=== PATIENT | female | born 1955 | race Caucasian/White ===

== ENCOUNTER → 2016-07-31 | Day surgery (SDC) | payer OTHER ==
[2016-07-17 11:17] VITALS: Ht 160 cm; Wt 63.6 kg
[~2016-07-31] VITALS: Ht 160 cm; Wt 63.6 kg
[~2016-07-31] MED LIST: BIOTCAP2 PO; CALC1CHW PO; CETI10TA84 PO; CHOL1000 PO; CLX40 PO; CYAN10004 SL; FLUT0.0529 NAE; LIDOCAINE HCL 2% 2 ML VIAL (20MG/ML) ONE; MIDAZOLAM HCL 1 MG/ML 2ML VIAL ONE; MULTTAB58 PO; PRMVC TOP; PROPOFOL IV EMULSION 10 MG/ML 20 ML VIAL IV ONE; RANI150T3 PO; SODIUM CHLORIDE 0.9% 500ML 500 ML IV ONE; TRMO115 TOP
--- NOTE | 2016-07-31 12:45 | Endo History and Physical ---
History & Physical Date of Service: Jul 31, 2016. Chief Complaint: screening Referring Physician: Dr. Lui Flower History of Present Illness 60 yo CF who presents for screening colonoscopy Past Surgical History Hx Cardiac Surgery: Yes (HEART CATH, NO STENTS) Hx Internal Defibrillator: No Hx Pacemaker: No Hx Abdominal Surgery: Yes (GASTRIC BYPASS) Hx of Implantable Prosthesis: No Hx Post-Op Nausea and Vomiting: Yes (S/P GASTRIC BYPASS) Hx Cancer Surgery: No Hx Thoracic Surgery: No Hx Orthopedic: Yes (LT RCR) Hx Urinary Tract Surgery: Yes (RT URETER REPLACEMENT) Family History None Social History Smoking Status: Former Smoker Hx Substance Use: No Hx Alcohol Use: Yes (OCCASIONAL) Allergies Coded Allergies: Gadolinium Derivatives (Verified Allergy, Severe, ANAPHYLAXIS, 07/17/16) IN IV DYE? Iodine (Verified Allergy, Severe, ANAPHYLAXIS, 07/17/16) Amoxicillin (Verified Allergy, Intermediate, SEVERE HIVES, 07/17/16) Sulfamethoxazole w/Trimethoprim (Verified Allergy, Unknown, RASH, 07/17/16) Current Medications Reported Home Medications Medications Dose Route/Sig Max Daily Dose Days Date Category Triamcinolone Acetonide (Triamcinolone Acet) 45 Appln/15 Gm Oint 1 Appln TOP BID PRN 07/17/16 Reported Premarin (Estrogens, Conjugated) 14 Appln/30 Gm Cr 1 Appl TOP 2XWK 07/17/16 Reported Vitamin B-12 1000 Mcg (Cyanocobalamin) 1,000 Mcg Tab 1,000 Mcg SL BID 07/17/16 Reported Biotin 5000 (Biotin) 5 Mg Cap 1 Tab PO QAM 07/17/16 Reported Zyrtec (Cetirizine HCl) 10 Mg Tab 10 Mg PO DAILY PRN 07/17/16 Reported Calcium Citrate Chewy Bit 500-500 mg-Unit (Calcium Citrate-Vitamin D) 1 Chw Chw 1 Tab PO BID 07/17/16 Reported Vitamin D3 (Cholecalciferol) 1,000 Unit Tab 1 Tab PO QAM 07/17/16 Reported Multivitamin (Multiple Vitamin) 1 Tab Tab 1 Tab PO BID 07/17/16 Reported Citalopram Hydrobromide (Citalopram) 40 Mg Tab 1 Tab PO QAM 07/17/16 Reported Zantac (Ranitidine HCl) 150 Mg Tab 1 Tab PO BID 04/13/15 Reported Flonase (Fluticasone Propionate (Nasal)) 50 Mcg/Act Spr 2 Sprays LIDYA PRN 06/25/14 Reported Vital Signs Weight (Kilograms): 63.64 Height (Feet): 5 Height (Inches): 3 Date Time Temp Pulse Resp B/P Pulse Ox O2 Delivery O2 Flow Rate FiO2 07/31/16 12:06 36.5 57 20 144/67 96 Room Air Physical Exam General Appearance: WD/WN, no apparent distress Respiratory/Chest: Auscultation: breath sounds normal Cardiovascular: Heart Auscultation: RRR Abdomen: Bowel Sounds: normal Inspection & Palpation: soft, non-distended, no tenderness, guarding & rebound Assessment and Plan Assessment: 60 yo CF who presents for screening colonoscopy Plan: Proceed with colonoscopy.
--- NOTE | 2016-07-31 13:14 | Discharge Instructions ---
Endoscopy Patient Instructions Date / Procedure(s) Performed Jul 31, 2016. Colonoscopy Allergy Information Coded Allergies: Gadolinium Derivatives (Verified Allergy, Severe, ANAPHYLAXIS, 07/17/16) IN IV DYE? Iodine (Verified Allergy, Severe, ANAPHYLAXIS, 07/17/16) Amoxicillin (Verified Allergy, Intermediate, SEVERE HIVES, 07/17/16) Sulfamethoxazole w/Trimethoprim (Verified Allergy, Unknown, RASH, 07/17/16) Discharge Date / Findings Jul 31, 2016. Colon polyp Internal hemorrhoids Medication Instructions OK to resume all medications today as prescribed. Reported Home Medications Medications Dose Route/Sig Max Daily Dose Days Date Category Triamcinolone Acetonide (Triamcinolone Acet) 45 Appln/15 Gm Oint 1 Appln TOP BID PRN 07/17/16 Reported Premarin (Estrogens, Conjugated) 14 Appln/30 Gm Cr 1 Appl TOP 2XWK 07/17/16 Reported Vitamin B-12 1000 Mcg (Cyanocobalamin) 1,000 Mcg Tab 1,000 Mcg SL BID 07/17/16 Reported Biotin 5000 (Biotin) 5 Mg Cap 1 Tab PO QAM 07/17/16 Reported Zyrtec (Cetirizine HCl) 10 Mg Tab 10 Mg PO DAILY PRN 07/17/16 Reported Calcium Citrate Chewy Bit 500-500 mg-Unit (Calcium Citrate-Vitamin D) 1 Chw Chw 1 Tab PO BID 07/17/16 Reported Vitamin D3 (Cholecalciferol) 1,000 Unit Tab 1 Tab PO QAM 07/17/16 Reported Multivitamin (Multiple Vitamin) 1 Tab Tab 1 Tab PO BID 07/17/16 Reported Citalopram Hydrobromide (Citalopram) 40 Mg Tab 1 Tab PO QAM 07/17/16 Reported Zantac (Ranitidine HCl) 150 Mg Tab 1 Tab PO BID 04/13/15 Reported Flonase (Fluticasone Propionate (Nasal)) 50 Mcg/Act Spr 2 Sprays LIDYA PRN 06/25/14 Reported Provider Instructions Activity Restrictions - No exercising or heavy lifting for 24 hours. - Do not drink alcohol the day of the procedure. - Do not drive a car or operate machinery until the day after the procedure. - Do not make any important decisions or sign important papers in 24 hours after the procedure. Following Day: - Return to full activity which may include returning to work/school. Diet Start your diet with liquids and light foods (jello, soup, juice, toast). Then eat your usual diet if not nauseated. Treatment For Common After Affects For mild abdominal pain, bloating, or excessive gas: - Rest - Eat lightly - Lie on right side Follow-Up Information Follow-up with Dr. Lui Flower as scheduled Anesthesia Information What You Should Know You have had a procedure that required some medicine to reduce anxiety and discomfort. This treatment is called moderate sedation. After receiving the treatment, you may be sleepy, but you will be able to breathe on your own. The effects of the treatment may last for several hours. Follow these instructions along with Activity/Diet recommendations noted above: * Do NOT do anything where dizziness or clumsiness would be dangerous. * Rest quietly at home today, then you can be up and about tomorrow. * Have a responsible person stay with you the rest of today. * You may have had an I.V. today. If so, you may take the dressing off later today. Recommendations Call your doctor if: * Trouble breathing * Continuous vomiting for more than 24 hours * Temperature above 101 degrees * Severe abdominal pain or bloating * Pain not relieved by pain medicine ordered * There is increased drainage or redness from any incision * A large amount of rectal bleeding greater than 2-3 tablespoons. (If you had a polyp/s removed or have hemorrhoids, a small amount of blood - from the rectum is to be expected.) * You have any unanswered questions or concerns. IN THE EVENT OF A SERIOUS EMERGENCY, GO TO THE NEAREST EMERGENCY ROOM Your discharge instructions were prepared by provider Stalin Bernard. Patient Instructions Signature Page Gavi Colbert Patient (or Guardian) Signature/Date: I have read and understand the instructions given to me by my caregivers. Caregiver/RN/Doctor Signature/Date: The above-named patient and/or guardian has received patient instructions on this date. + Original Patient Signature Page (only) stays with chart. Please make copy for patient.
--- NOTE | 2016-07-31 13:21 | GI REPORT ---
Procedure Date: 07/31/2016 12:25 PM Procedure: Colonoscopy Indications: High risk colon cancer surveillance: Personal history of colonic polyps Medicines: Monitored Anesthesia Care Complications: No immediate complications. Estimated Blood Loss: Estimated blood loss: none. Procedure: Pre-Anesthesia Assessment: - Prior to the procedure, a History and Physical was performed, and patient medications and allergies were reviewed. The patient's tolerance of previous anesthesia was also reviewed. The risks and benefits of the procedure and the sedation options and risks were discussed with the patient. All questions were answered, and informed consent was obtained. Prior Anticoagulants: The patient has taken no previous anticoagulant or antiplatelet agents. ASA Grade Assessment: II - A patient with mild systemic disease. After reviewing the risks and benefits, the patient was deemed in satisfactory condition to undergo the procedure. After I obtained informed consent, the scope was passed under direct vision. Throughout the procedure, the patient's blood pressure, pulse, and oxygen saturations were monitored continuously. The scope was introduced through the anus and advanced to the terminal ileum. The colonoscopy was performed without difficulty. The patient tolerated the procedure well. The quality of the bowel preparation was good. The terminal ileum, ileocecal valve, appendiceal orifice, and rectum were photographed. Findings: A 3 mm polyp was found in the descending colon. The polyp was sessile. The polyp was removed with a cold biopsy forceps. Resection and retrieval were complete. Non-bleeding internal hemorrhoids were found during retroflexion. The hemorrhoids were small. Impression: - One 3 mm polyp in the descending colon, removed with a cold biopsy forceps. Resected and retrieved. - Non-bleeding internal hemorrhoids. Recommendation: - Resume previous diet. - Continue present medications. - Repeat colonoscopy for surveillance based on pathology results. - Return to primary care physician as previously scheduled. Stalin Bernard DO 07/31/2016 1:20:41 PM This report has been signed electronically. Note Initiated On: 07/31/2016 12:25 PM I attest to the content of the Intraoperative Record and orders documented therein, exceptions below
[2016-07-31 13:39] VITALS: BP 108/63; PULSE 56; O2SAT 99
--- NOTE | 2016-07-31 13:44 | Anesthesiology Progress Note ---
Anesthesia Post Op Note Date & Time Jul 31, 2016 at 13:44 Vital Signs Pain Intensity: 0 Vital Signs Past 12 Hours Date Time Temp Pulse Resp B/P Pulse Ox O2 Delivery O2 Flow Rate FiO2 07/31/16 13:39 56 16 108/63 99 Room Air 07/31/16 13:24 63 16 100/58 96 Room Air 07/31/16 13:09 68 16 98/53 96 Room Air 07/31/16 12:06 36.5 57 20 144/67 96 Room Air Notes Mental Status: alert / awake / arousable, participated in evaluation Pt Amnestic to Procedure: Yes Nausea / Vomiting: adequately controlled Pain: adequately controlled Airway Patency, RR, SpO2: stable & adequate BP & HR: stable & adequate Hydration State: stable & adequate Anesthetic Complications: no major complications apparent
== END | disposition home or self-care (01) ==
LOC: C.GI 11:14
PROVIDERS: ATTEND Internal Medicine
DX: Z12.11 Encounter for screening for malignant neoplasm of colon (principal); Z86.010 Personal history of colon polyps; D12.4 Benign neoplasm of descending colon; K64.8 Other hemorrhoids; Z98.890 Other specified postprocedural states; Z87.891 Personal history of nicotine dependence; Z91.041 Radiographic dye allergy status; Z88.1 Allergy status to other antibiotic agents; Z88.2 Allergy status to sulfonamides

== ENCOUNTER → 2016-11-20 | Outpatient (CLI) | payer OTHER ==
[~2016-11-20] MED LIST changes: -LIDOCAINE HCL 2% 2 ML VIAL (20MG/ML) ONE; -MIDAZOLAM HCL 1 MG/ML 2ML VIAL ONE; -PROPOFOL IV EMULSION 10 MG/ML 20 ML VIAL IV ONE; -SODIUM CHLORIDE 0.9% 500ML 500 ML IV ONE
[2016-11-20 12:23] LABS: MEAN CELL VOLUME 94.9 fL (80-100); MEAN CORPUSCULAR HEMOGLOBIN 30.6 pg (25-34); MEAN CORPUSCULAR HGB CONC 32.2 g/dl (32-36); MEAN PLATELET VOLUME 11.6 fL (7.4-10.4); PLATELET COUNT 173 K/uL (130-400); RED BLOOD COUNT 4.74 M/uL (4.2-5.4); WHITE BLOOD COUNT 5.15 K/uL (4.8-10.8)
[2016-11-20 13:01] LABS: URINE PROTIEN/CREAT RATIO 0.3 (0-0.2); URINE TOTAL PROTEIN 26.2 mg/dl (0-11.9)
[2016-11-20 13:16] LABS: URINE APPEARANCE CLEAR (CLEAR); URINE BILIRUBIN NEG (NEG); URINE COLOR YELLOW; URINE NITRITE NEG (NEG); URINE SPECIFIC GRAVITY 1.018 (1.000-1.030); UROBILINOGEN NEG (NEG)
[2016-11-20 13:26] LABS: MANUAL MICROSCOPIC REQUIRED? NO; REVIEW REQ? YES
[2016-11-20 13:29] LABS: ALT/SGPT 41 U/L (12-78); BLOOD UREA NITROGEN 20 mg/dl (7-18); BUN/CREATININE RATIO 15.5 (10-20); CALCIUM 9.2 mg/dl (8.5-10.1); CARBON DIOXIDE 25 mmol/L (21-32); CHLORIDE 114 mmol/L (98-107); GLUCOSE 85 mg/dl (70-99); POTASSIUM 4.6 mmol/L (3.5-5.1); SODIUM 143 mmol/L (136-145)
[2016-11-20 13:32] LABS: ALB/GLOB RATIO 1.1 (0.9-2); ALKALINE PHOSPHATASE 73 U/L (45-117); AST/SGOT 30 U/L (15-37)
== END | disposition home or self-care (01) ==
LOC: C.LABPVFM 08:04
PROVIDERS: ATTEND Internal Medicine Nephrology
DX: N18.3 Chronic kidney disease, stage 3 (moderate) (principal); E55.9 Vitamin D deficiency, unspecified; N30.00 Acute cystitis without hematuria

== ENCOUNTER → 2016-12-09 | Outpatient (CLI) | payer OTHER ==
[2016-12-09 12:48] LABS: URINE APPEARANCE CLOUDY (CLEAR); URINE BILIRUBIN NEG (NEG); URINE COLOR YELLOW; URINE EPITHELIAL CELL AUTO 0-5 /lpf (0-5); URINE NITRITE NEG (NEG); URINE SPECIFIC GRAVITY 1.015 (1.000-1.030); UROBILINOGEN NEG (NEG)
[2016-12-09 13:07] LABS: MANUAL MICROSCOPIC REQUIRED? NO; REVIEW REQ? YES
== END | disposition home or self-care (01) ==
LOC: C.LABPVFM 08:06
PROVIDERS: ATTEND Physician Assistant
DX: R30.0 Dysuria (principal)

== ENCOUNTER 2017-05-12 09:57 | Inpatient (IN) | payer OTHER ==
[~2017-05-12] VITALS: Ht 160 cm; Wt 70.1 kg
--- NOTE | 2017-05-12 10:31 | EMERGENCY ROOM VISIT NOTE ---
History Report prepared by Harish: Stanton Maldonado Under the Supervision of: Dr. Nico Marino M.D. First contact with patient: 10:19 Chief Complaint: ABDOMINAL PAIN Stated Complaint: AB PAIN Nursing Triage Summary: Nausea and abdominal pain radiating to the left side x1 month, worsening. Hx gastric bypass 2 years ago. History of Present Illness The patient is a 61 year old female who presents to the Emergency Room with complaints of constant left-side abdominal pain for one month STRAWHAT SIZER. She notes the pain initially began in her epigastric region and migrated to her left side. She notes the pain has been worsening over time. She reports that movement and deep breaths worsen the pain. She currently rates her pain an 8/10 in severity. She notes nausea. She denies any fevers, vomiting, and diarrhea. She has a history of gastric bypass and right ureter replacement. She denies any history of diverticulitis. Source of History: patient Onset: one month STRAWHAT SIZER Position: abdomen Symptom Intensity: 8/10 Timing: constant Modifying Factors (Worsening): breathing, movement Associated Symptoms: + nausea, No fevers, No vomiting, No diarrhea Note: She notes left side abdominal pain Review of Systems See HPI for pertinent positives & negatives. A total of 10 systems reviewed and were otherwise negative. Past Medical & Surgical Medical Problems: (1) Emphysema, unspecified (2) HTN (hypertension) (3) Kidney disease (4) Kidney stone (5) PNA (pneumonia) (6) right ureter replacement Surgical Problems: (1) H/O gastric bypass Family History FH: HTN (hypertension) FH: cancer FH: diabetes mellitus FH: gallbladder disease FH: kidney disease FH: lung disease FH: seizures Heart disease Social History Smoking Status: Never Smoker Marital Status: Housing Status: lives with significant other Occupation Status: employed Current/Historical Medications Scheduled Biotin (Biotin 5000), 1 TAB PO QAM Calcium Citrate-Vitamin D (Calcium Citrate Chewy Bit 500-500 mg-Unit), 1 TAB PO BID Cholecalciferol (Vitamin D3), 1 TAB PO QAM Citalopram (Citalopram Hydrobromide), 1 TAB PO QAM Cyanocobalamin (Vitamin B-12 1000 Mcg), 1,000 MCG SL BID Estradiol Vaginal (Yuvafem), 1 TAB PV 2XWK Multiple Vitamin (Multivitamin), 1 TAB PO BID Ranitidine Hcl (Zantac), 1 TAB PO BID Scheduled PRN Cetirizine (Zyrtec), 10 MG PO DAILY PRN for ALLERGIES Fluticasone Propionate (Nasal) (Flonase Allergy Relief), 2 SPRAY LIDYA DAILY PRN for CONGESTION Allergies Coded Allergies: Gadolinium Derivatives (Verified Allergy, Severe, ANAPHYLAXIS, 05/12/17) IN IV DYE? Iodine (Verified Allergy, Severe, ANAPHYLAXIS, 05/12/17) Amoxicillin (Verified Allergy, Intermediate, SEVERE HIVES, 05/12/17) Sulfamethoxazole w/Trimethoprim (Verified Allergy, Unknown, RASH, 05/12/17 ) Physical Exam Vital Signs Date Time Temp Pulse Resp B/P (MAP) Pulse Ox O2 Delivery O2 Flow Rate FiO2 05/12/17 14:28 61 18 135/62 98 Room Air 05/12/17 12:54 54 18 137/79 98 Room Air 05/12/17 10:08 36.8 64 18 131/81 99 Room Air Physical Exam GENERAL: Patient is in no acute distress. HEENT: No acute trauma, normocephalic atraumatic, mucous membranes moist, no nasal congestion, no scleral icterus. NECK: No stridor, no adenopathy, no meningismus, trachea is midline. LUNGS: Clear to auscultation bilaterally, no wheeze, no rhonchi, breath sounds equal. HEART: Without murmurs gallops or rubs, regular rate and rhythm. ABDOMEN: Soft, moderately tender along entire left side, bowel sounds positive, no hernias, no peritonitis. BACK: No flank discomfort with percussion. EXTREMITIES: No cyanosis or edema, full range of motion of all the joints without pain or difficulty, no signs for acute trauma. NEUROLOGIC: Oriented x 3, no acute motor or sensory deficits, no focal weakness. SKIN: No rash, no jaundice, no diaphoresis. Medical Decision & Procedures ER Provider Diagnostic Interpretation: Radiology results as stated below per my review and radiologist interpretation: SINGLE VIEW CHEST CLINICAL HISTORY: Generalized abdominal pain. FINDINGS: An AP, portable, upright chest radiograph is compared to study dated 04/13/2015. The examination is degraded by portable technique, apical lordotic positioning, and patient rotation. The cardiomediastinal silhouette is unremarkable. Scattered calcified granulomas are again noted. The lungs and pleural spaces are otherwise clear. No pneumothorax is seen. The skeletal structures are osteopenic. The bony thorax is grossly intact. IMPRESSION: No active disease in the chest. Electronically signed by: Nico Miller M.D. 05/12/2017 10:46 AM Dictated Date/Time: 05/12/2017 10:[address] SCAN OF THE ABDOMEN AND PELVIS WITHOUT IV CONTRAST CLINICAL HISTORY: Generalized abdominal pain. COMPARISON STUDY: Abdominal CT dated 04/13/2015. TECHNIQUE: CT scan of the abdomen and pelvis is performed from the lung bases to the proximal femora. Images are reviewed in the axial, sagittal, and coronal planes. IV contrast was not administered for this examination due to a reported history of contrast allergy. Oral contrast was utilized. A dose lowering technique was utilized adhering to the principles of ALARA. CT DOSE: 509.96 mGy.cm FINDINGS: Lung bases: The heart is normal in size and without pericardial effusion. There are coronary artery calcifications. There is a large calcified granuloma at the right lung base. No airspace consolidation or pleural effusion is seen. Liver: The unenhanced liver is normal in size, contour, and attenuation. There is no intrahepatic biliary ductal dilatation. Gallbladder: Unremarkable. Spleen: Normal in size and attenuation. There are scattered calcified granulomas. Pancreas: The unenhanced pancreas is grossly unremarkable. Adrenal glands: Unremarkable. Kidneys: The unenhanced kidneys demonstrate cortical atrophy. There is mild to moderate right hydroureteronephrosis. The right ureter inserts on the dome of the bladder. There is urothelial thickening seen in the right renal pelvis involving the right ureter. There is mild right-sided perinephric stranding. There is minimal fullness of left renal collecting system without hydronephrosis. Nonobstructing calculi are present in the lower pole of the left kidney. No right renal calculi are identified. There is no evidence of contour deforming renal mass lesion. Abdominal vasculature: The abdominal aorta is normal in course and caliber noting moderate atherosclerotic calcification. Stomach and bowel: There is a tiny hiatal hernia. There are postoperative changes consistent with a history of Facundo-en-Y gastric bypass surgery. No bowel obstruction is seen. The appendix is well-visualized and normal. Peritoneum: There is no intraperitoneal free air or abdominal ascites. Lymphadenopathy: None. Pelvic viscera: The bladder and uterus are normal in appearance. A 2.7 cm cystic structure seen in the left adnexa, likely related to the left ovary. This is modestly increased in size from 2015. Skeletal structures: The skeletal structures are osteopenic. Mild lumbosacral spondylosis is observed. Advanced sclerotic change is noted at the pubic symphysis. No lytic or blastic lesions are seen. IMPRESSION: 1. There is mild to moderate right hydroureteronephrosis. The ureter is dilated to the bladder and may insert ectopically at the bladder dome. Hydronephrosis has increased from prior studies. 2. There is urothelial thickening within the right renal collecting system as well as involving the right ureter. There is also mild associated right-sided perinephric stranding. Correlation with clinical findings and urinalysis will be required. 3. Nonobstructing left renal calculi. 4. There is a 2.7 cm simple cystic focus in the left adnexa, likely related to the left ovary. This is of low suspicion but has slightly increased in size from 2015. Consider follow-up with a nonemergent pelvic ultrasound. 5. Findings are consistent with a Facundo-en-Y gastric bypass procedure. No bowel obstruction is seen. 6. Additional findings as above. Electronically signed by: Nico Miller M.D. 05/12/2017 1:04 PM Dictated Date/Time: 05/12/2017 12:50 PM Laboratory Results 05/12/17 10:35 Red Blood Count 4.40, Mean Corpuscular Volume 93.0, Mean Corpuscular Hemoglobin 32.3, Mean Corpuscular Hemoglobin Concent 34.7, Mean Platelet Volume 10.8, Neutrophils (%) (Auto) 59.3, Lymphocytes (%) (Auto) 24.3, Monocytes (%) (Auto) 8.9, Eosinophils (%) (Auto) 6.4, Basophils (%) (Auto) 0.9, Neutrophils # (Auto) 3.31, Lymphocytes # (Auto) 1.36, Monocytes # (Auto) 0.50, Eosinophils # (Auto) 0.36, Basophils # (Auto) 0.05 05/12/17 10:35 Test 05/12/17 10:35 05/12/17 11:05 White Blood Count 5.59 K/uL (4.8-10.8) Red Blood Count 4.40 M/uL (4.2-5.4) Hemoglobin 14.2 g/dL (12.0-16.0) Hematocrit 40.9 % (37-47) Mean Corpuscular Volume 93.0 fL (80-100) Mean Corpuscular Hemoglobin 32.3 pg (25-34) Mean Corpuscular Hemoglobin Concent 34.7 g/dl (32-36) Platelet Count 171 K/uL (130-400) Mean Platelet Volume 10.8 fL (7.4-10.4) Neutrophils (%) (Auto) 59.3 % Lymphocytes (%) (Auto) 24.3 % Monocytes (%) (Auto) 8.9 % Eosinophils (%) (Auto) 6.4 % Basophils (%) (Auto) 0.9 % Neutrophils # (Auto) 3.31 K/uL (1.4-6.5) Lymphocytes # (Auto) 1.36 K/uL (1.2-3.4) Monocytes # (Auto) 0.50 K/uL (0.11-0.59) Eosinophils # (Auto) 0.36 K/uL (0-0.5) Basophils # (Auto) 0.05 K/uL (0-0.2) RDW Standard Deviation 44.0 fL (36.4-46.3) RDW Coefficient of Variation 13.0 % (11.5-14.5) Immature Granulocyte % (Auto) 0.2 % Immature Granulocyte # (Auto) 0.01 K/uL (0.00-0.02) Prothrombin Time 10.0 SECONDS (9.0-12.0) Prothromb Time International Ratio 1.0 (0.9-1.1) Activated Partial Thromboplast Time 26.8 SECONDS (21.0-31.0) Partial Thromboplastin Ratio 1.0 Anion Gap 9.0 mmol/L (3-11) Est Creatinine Clear Calc Drug Dose 44.8 ml/min Estimated GFR () 53.5 Estimated GFR (Non- 46.2 BUN/Creatinine Ratio 18.3 (10-20) Calcium Level 8.6 mg/dl (8.5-10.1) Total Bilirubin 0.3 mg/dl (0.2-1) Aspartate Amino Transf (AST/SGOT) 27 U/L (15-37) Alanine Aminotransferase (ALT/SGPT) 31 U/L (12-78) Alkaline Phosphatase 92 U/L (45-117) Troponin I < 0.015 ng/ml (0-0.045) Total Protein 7.4 gm/dl (6.4-8.2) Albumin 3.7 gm/dl (3.4-5.0) Globulin 3.6 gm/dl (2.5-4.0) Albumin/Globulin Ratio 1.0 (0.9-2) Lipase 666 U/L (73-393) Urine Color YELLOW Urine Appearance CLEAR (CLEAR) Urine pH 6.5 (4.5-7.5) Urine Specific [place] 1.015 (1.000-1.030) Urine Protein NEG (NEG) Urine Glucose (UA) NEG (NEG) Urine Ketones NEG (NEG) Urine Occult Blood NEG (NEG) Urine Nitrite NEG (NEG) Urine Bilirubin NEG (NEG) Urine Urobilinogen NEG (NEG) Urine Leukocyte Esterase NEG (NEG) Laboratory results reviewed by me. ECG Indication: abdominal pain Rate (beats per minute): 54 Rhythm: sinus bradycardia Findings: no acute ischemic change, no ectopy ED Course 1020: The patient was evaluated in room C12B. A complete history and physical exam was performed. 1430: I reassessed the patient at this time. She is still having pain. The patient will be further evaluated. 1443: I spoke with Dr. Vamshi Roman, hospitalist. We discussed the patients case. The patient will be evaluated by the [facility] for further management. Medical Decision The patient is a 61 year old female who presents to the ED with complaints of left-sided abdominal pain. Differential diagnoses considered include diverticulitis, pyelonephritis, hydronephrosis, splenic lesion or bleeding, pna , pancreatitis, hernia, and musculoskeletal pain. There is no leukocytosis or concerning anemia. No significant electrolyte abnormality or kidney failure. No hepatitis. Lipase is elevated consistent with pancreatitis. Urinalysis does not show infection. Chest film does not show pneumonia or free air. EKG shows a sinus bradycardia, no acute ischemia. Abdominal and pelvis CT does not show inflammation of the pancreas. There was no bowel obstruction. The patient did have some inflammation around the area of the right ureter and correlation for infection with a urinalysis was recommended. The patient did not want anything for pain. She did not want anything for nausea. She is uncomfortable but again, does not want medicated. With her pain increasing for the last month. With her history of abdominal surgery and the findings of pancreatitis. I think a hospital stay is warranted. It appears the pancreatitis is causing her discomfort. The changes in the area of the right ureter may be chronic from her previous right ureteral work-she is not having pain in this area. Medication Reconcilliation Current Medication List: was personally reviewed by me Blood Pressure Screening Patient's blood pressure: Elevated blood pressure Blood pressure disposition: Elevated BP felt to be situational Consults Time Called: 1413 Consulting Physician: Dr. Vamshi Roman, hospitalist Returned Call: [address] Vamshi Roman, hospitalist. We discussed the patients case. The patient will be evaluated by the [facility] for further management. Impression Primary Impression: Pancreatitis Additional Impression: LUQ abdominal pain Scribe Attestation The scribe's documentation has been prepared under my direction and personally reviewed by me in its entirety. I confirm that the note above accurately reflects all work, treatment, procedures, and medical decision making performed by me. Departure Information Dispostion Being Evaluated By Hospitalist Referrals Kim Nguyen PA-C (PCP) Patient Instructions My [facility] Problem Qualifiers Primary Impression: Pancreatitis Chronicity: acute
--- NOTE | 2017-05-12 10:47 | DIAGNOSTIC IMAGING REPORT ---
SINGLE VIEW CHEST CLINICAL HISTORY: Generalized abdominal pain. FINDINGS: An AP, portable, upright chest radiograph is compared to study dated 04/13/2015. The examination is degraded by portable technique, apical lordotic positioning, and patient rotation. The cardiomediastinal silhouette is unremarkable. Scattered calcified granulomas are again noted. The lungs and pleural spaces are otherwise clear. No pneumothorax is seen. The skeletal structures are osteopenic. The bony thorax is grossly intact. IMPRESSION: No active disease in the chest. Electronically signed by: Nico Miller M.D. 05/12/2017 10:46 AM Dictated Date/Time: 05/12/2017 10:45 AM
[2017-05-12 10:49] LABS: BASO % 0.9 %; BASO ABS # 0.05 K/uL (0-0.2); EOS % 6.4 %; EOS ABS # 0.36 K/uL (0-0.5); HEMATOCRIT 40.9 % (37-47); HEMOGLOBIN 14.2 g/dL (12.0-16.0); IG# 0.01 K/uL (0.00-0.02); LYMPH % 24.3 %; LYMPH ABS # 1.36 K/uL (1.2-3.4); MEAN CORPUSCULAR HEMOGLOBIN 32.3 pg (25-34); MEAN CORPUSCULAR HGB CONC 34.7 g/dl (32-36); MEAN PLATELET VOLUME 10.8 fL (7.4-10.4); MONO % 8.9 %; NEUT % 59.3 %; NEUT ABS # 3.31 K/uL (1.4-6.5); PLATELET COUNT 171 K/uL (130-400); WHITE BLOOD COUNT 5.59 K/uL (4.8-10.8)
[2017-05-12 10:59] LABS: PTT PATIENT 26.8 SECONDS (21.0-31.0)
[2017-05-12 11:16] LABS: ALBUMIN 3.7 gm/dl (3.4-5.0); ALT/SGPT 31 U/L (12-78); BLOOD UREA NITROGEN 23 mg/dl (7-18); CALCIUM 8.6 mg/dl (8.5-10.1); CARBON DIOXIDE 22 mmol/L (21-32); CREATININE 1.27 mg/dl (0.60-1.20); GLUCOSE 80 mg/dl (70-99); LIPASE 666 U/L (73-393); POTASSIUM 3.9 mmol/L (3.5-5.1); SODIUM 140 mmol/L (136-145)
[2017-05-12] MEDS ORDERED: FLUT0.15 NAE (11:19)
[2017-05-12] MEDS ORDERED: ESTR10TA3 PV (11:19)
[2017-05-12 11:21] LABS: ALKALINE PHOSPHATASE 92 U/L (45-117); AST/SGOT 27 U/L (15-37); TOTAL PROTEIN 7.4 gm/dl (6.4-8.2)
--- NOTE | 2017-05-12 13:05 | DIAGNOSTIC IMAGING REPORT ---
CT SCAN OF THE ABDOMEN AND PELVIS WITHOUT IV CONTRAST CLINICAL HISTORY: Generalized abdominal pain. COMPARISON STUDY: Abdominal CT dated 04/13/2015. TECHNIQUE: CT scan of the abdomen and pelvis is performed from the lung bases to the proximal femora. Images are reviewed in the axial, sagittal, and coronal planes. IV contrast was not administered for this examination due to a reported history of contrast allergy. Oral contrast was utilized. A dose lowering technique was utilized adhering to the principles of ALARA. CT DOSE: 509.96 mGy.cm FINDINGS: Lung bases: The heart is normal in size and without pericardial effusion. There are coronary artery calcifications. There is a large calcified granuloma at the right lung base. No airspace consolidation or pleural effusion is seen. Liver: The unenhanced liver is normal in size, contour, and attenuation. There is no intrahepatic biliary ductal dilatation. Gallbladder: Unremarkable. Spleen: Normal in size and attenuation. There are scattered calcified granulomas. Pancreas: The unenhanced pancreas is grossly unremarkable. Adrenal glands: Unremarkable. Kidneys: The unenhanced kidneys demonstrate cortical atrophy. There is mild to moderate right hydroureteronephrosis. The right ureter inserts on the dome of the bladder. There is urothelial thickening seen in the right renal pelvis involving the right ureter. There is mild right-sided perinephric stranding. There is minimal fullness of left renal collecting system without hydronephrosis. Nonobstructing calculi are present in the lower pole of the left kidney. No right renal calculi are identified. There is no evidence of contour deforming renal mass lesion. Abdominal vasculature: The abdominal aorta is normal in course and caliber noting moderate atherosclerotic calcification. Stomach and bowel: There is a tiny hiatal hernia. There are postoperative changes consistent with a history of Facundo-en-Y gastric bypass surgery. No bowel obstruction is seen. The appendix is well-visualized and normal. Peritoneum: There is no intraperitoneal free air or abdominal ascites. Lymphadenopathy: None. Pelvic viscera: The bladder and uterus are normal in appearance. A 2.7 cm cystic structure seen in the left adnexa, likely related to the left ovary. This is modestly increased in size from 2015. Skeletal structures: The skeletal structures are osteopenic. Mild lumbosacral spondylosis is observed. Advanced sclerotic change is noted at the pubic symphysis. No lytic or blastic lesions are seen. IMPRESSION: 1. There is mild to moderate right hydroureteronephrosis. The ureter is dilated to the bladder and may insert ectopically at the bladder dome. Hydronephrosis has increased from prior studies. 2. There is urothelial thickening within the right renal collecting system as well as involving the right ureter. There is also mild associated right-sided perinephric stranding. Correlation with clinical findings and urinalysis will be required. 3. Nonobstructing left renal calculi. 4. There is a 2.7 cm simple cystic focus in the left adnexa, likely related to the left ovary. This is of low suspicion but has slightly increased in size from 2015. Consider follow-up with a nonemergent pelvic ultrasound. 5. Findings are consistent with a Facundo-en-Y gastric bypass procedure. No bowel obstruction is seen. 6. Additional findings as above. Electronically signed by: Nico Miller M.D. 05/12/2017 1:04 PM Dictated Date/Time: 05/12/2017 12:50 PM
[2017-05-12] MEDS ORDERED: ALUMINUM/MAGNESIUM/SIMETH (MAALOX MAX) 30 ML UDC PO PRN (15:15)
[2017-05-12] MEDS ORDERED: HYDROmorphone INJ 1 MG/ML SYR IV PRN (15:15)
[2017-05-12] MEDS ORDERED: ONDANSETRON INJ 2 MG/ML 2 ML VIAL IV PRN (15:15)
[2017-05-12] MEDS ORDERED: MAGNESIUM HYDROXIDE SUSP 30 ML UDC PO PRN (15:15)
[2017-05-12] MEDS ORDERED: POLYETHYLENE (MIRALAX) 17 GM PACK PO PRN (15:15)
[2017-05-12] MEDS ORDERED: ACETAMINOPHEN 325 MG TAB PO PRN (15:15)
--- NOTE | 2017-05-12 15:43 | History and Physical ---
History & Physical Date & Time of Service: May 12, 2017 at 15:23 Chief Complaint: Ab Pain Primary Care Physician: Anali Mercado CRNP History of Present Illness Source: patient, family, clinic records, hospital records Patient is a pleasant 61 y/o female, with PMHx of obesity s/p gastric bypass in 2014, R ureteral obstruction s/p ureteral reconstruction w/ ileum in 2009, anxiety/depression, CKD stage III, HTN, and GERD, who presented to the ED with progressive epigastric discomfort x1 month. According to the patient, over the last 1 month she has noticed constant epigastric pain that radiates to LUQ and back. Pain increasing w/ deep breathing and sneezing. She denies any association with eating/drinking- she notes at times she has episodes of nausea but it has been ongoing since gastric bypass. In ED, workup relatively unremarkable besides lipase of 666. Patient admits to a h/o PUD- she takes Zantac daily. She denies any recurrent symptoms similar to past presentation. She drinks 3-4 cups of coffee per day. She denies h/o smoking. She denies NSAID use. She denies BRBPR or melena. She denies excessive alcohol use and only drinks on rare occasions. She has not recently followed w/ GI, but has had an EGD in the past- GI w/ C. Patient was recently treated w/ Cipro for UTI- completed entire course. Patient denies any fever, chills, sweats, lightheadedness, dizziness, vision changes, CP, palpitations, edema, SOB, wheezing, cough, vomiting, diarrhea, urinary symptoms, melena, numbness/tingling , weakness, muscle/joint pain, anxiety/depression, active bleeding, or new skin discoloration/changes. Past Medical/Surgical History Medical Problems: obesity s/p gastric bypass in 2014 R ureteral obstruction s/p ureteral reconstruction w/ ileum in 2009 anxiety/depression CKD stage III HTN GERD Status: Resolved Family History FH: HTN (hypertension) FH: cancer FH: diabetes mellitus FH: gallbladder disease FH: kidney disease FH: lung disease FH: seizures Heart disease Social History Smoking Status: Never Smoker Alcohol Use: occasionally Marital Status: Housing status: lives with family Occupational Status: employed Multi-Drug Resistant Organisms History of MDRO: No Allergies Coded Allergies: Gadolinium Derivatives (Verified Allergy, Severe, ANAPHYLAXIS, 05/12/17) IN IV DYE? Iodine (Verified Allergy, Severe, ANAPHYLAXIS, 05/12/17) Amoxicillin (Verified Allergy, Intermediate, SEVERE HIVES, 05/12/17) Sulfamethoxazole w/Trimethoprim (Verified Allergy, Unknown, RASH, 05/12/17 ) Home Medications Scheduled Biotin (Biotin 5000), 1 TAB PO QAM Calcium Citrate-Vitamin D (Calcium Citrate Chewy Bit 500-500 mg-Unit), 1 TAB PO BID Cholecalciferol (Vitamin D3), 1 TAB PO QAM Citalopram (Citalopram Hydrobromide), 1 TAB PO QAM Cyanocobalamin (Vitamin B-12 1000 Mcg), 1,000 [address] BID Estradiol Vaginal (Yuvafem), 1 TAB PV 2XWK Multiple Vitamin (Multivitamin), 1 TAB PO BID Ranitidine Hcl (Zantac), 1 TAB PO BID Scheduled PRN Cetirizine (Zyrtec), 10 MG PO DAILY PRN for ALLERGIES Fluticasone Propionate (Nasal) (Flonase Allergy Relief), 2 SPRAY LIDYA DAILY PRN for CONGESTION Physical Exam Vital Signs Date Time Temp Pulse Resp B/P (MAP) Pulse Ox O2 Delivery O2 Flow Rate FiO2 05/12/17 14:28 61 18 135/62 98 Room Air 05/12/17 12:54 54 18 137/79 98 Room Air 05/12/17 10:08 36.8 64 18 131/81 99 Room Air General Appearance: WD/WN, no apparent distress Head: normocephalic, atraumatic Eyes: normal inspection, PERRL ENT: hearing grossly normal Neck: supple Respiratory/Chest: lungs clear, no respiratory distress, no accessory muscle use Cardiovascular: regular rate, rhythm Abdomen/GI: normal bowel sounds, soft, + tenderness (epigastric/LUQ region ), + guarding Back: normal inspection Extremities/Musculoskelatal: no calf tenderness, no pedal edema Neurologic/Psych: alert, normal mood/affect, oriented x 3 Skin: normal color, warm/dry, no rash Diagnostics Laboratory Results Results Past 24 Hours Test 05/12/17 10:35 05/12/17 11:05 Range/Units White Blood Count 5.59 4.8-10.8 K/uL Red Blood Count 4.40 4.2-5.4 M/uL Hemoglobin 14.2 12.0-16.0 g/dL Hematocrit 40.9 37-47 % Mean Corpuscular Volume 93.0 80-100 fL Mean Corpuscular Hemoglobin 32.3 25-34 pg Mean Corpuscular Hemoglobin Concent 34.7 32-36 g/dl Platelet Count 171 130-400 K/uL Mean Platelet Volume 10.8 7.4-10.4 fL Neutrophils (%) (Auto) 59.3 % Lymphocytes (%) (Auto) 24.3 % Monocytes (%) (Auto) 8.9 % Eosinophils (%) (Auto) 6.4 % Basophils (%) (Auto) 0.9 % Neutrophils # (Auto) 3.31 1.4-6.5 K/uL Lymphocytes # (Auto) 1.36 1.2-3.4 K/uL Monocytes # (Auto) 0.50 0.11-0.59 K/uL Eosinophils # (Auto) 0.36 0-0.5 K/uL Basophils # (Auto) 0.05 0-0.2 K/uL RDW Standard Deviation 44.0 36.4-46.3 fL RDW Coefficient of Variation 13.0 11.5-14.5 % Immature Granulocyte % (Auto) 0.2 % Immature Granulocyte # (Auto) 0.01 0.00-0.02 K/uL Prothrombin Time 10.0 9.0-12.0 SECONDS Prothromb Time International Ratio 1.0 0.9-1.1 Activated Partial Thromboplast Time 26.8 21.0-31.0 SECONDS Partial Thromboplastin Ratio 1.0 Sodium Level 140 136-145 mmol/L Potassium Level 3.9 3.5-5.1 mmol/L Chloride Level 110 98-107 mmol/L Carbon Dioxide Level 22 21-32 mmol/L Anion Gap 9.0 3-11 mmol/L Blood Urea Nitrogen 23 7-18 mg/dl Creatinine 1.27 0.60-1.20 mg/dl Est Creatinine Clear Calc Drug Dose 44.8 ml/min Estimated GFR () 53.5 Estimated GFR (Non- 46.2 BUN/Creatinine Ratio 18.3 10-20 Random Glucose 80 70-99 mg/dl Calcium Level 8.6 8.5-10.1 mg/dl Total Bilirubin 0.3 0.2-1 mg/dl Aspartate Amino Transf (AST/SGOT) 27 15-37 U/L Alanine Aminotransferase (ALT/SGPT) 31 12-78 U/L Alkaline Phosphatase 92 45-117 U/L Troponin I < 0.015 0-0.045 ng/ml Total Protein 7.4 6.4-8.2 gm/dl Albumin 3.7 3.4-5.0 gm/dl Globulin 3.6 2.5-4.0 gm/dl Albumin/Globulin Ratio 1.0 0.9-2 Lipase 666 73-393 U/L Urine Color YELLOW Urine Appearance CLEAR CLEAR Urine pH 6.5 4.5-7.5 Urine Specific [place] 1.015 1.000-1.030 Urine Protein NEG NEG Urine Glucose (UA) NEG NEG Urine Ketones NEG NEG Urine Occult Blood NEG NEG Urine Nitrite NEG NEG Urine Bilirubin NEG NEG Urine Urobilinogen NEG NEG Urine Leukocyte Esterase NEG NEG Diagnostic Radiology SINGLE VIEW CHEST CLINICAL HISTORY: Generalized abdominal pain. FINDINGS: An AP, portable, upright chest radiograph is compared to study dated 04/13/2015. The examination is degraded by portable technique, apical lordotic positioning, and patient rotation. The cardiomediastinal silhouette is unremarkable. Scattered calcified granulomas are again noted. The lungs and pleural spaces are otherwise clear. No pneumothorax is seen. The skeletal structures are osteopenic. The bony thorax is grossly intact. IMPRESSION: No active disease in the chest. Electronically signed by: Nico Miller M.D. 05/12/2017 10:46 AM Dictated Date/Time: 05/12/2017 10:45 AM The status of this report is Signed. Draft = Not yet reviewed or approved by Radiologist. Signed = Reviewed and approved by Radiologist. CT SCAN OF THE ABDOMEN AND PELVIS WITHOUT IV CONTRAST CLINICAL HISTORY: Generalized abdominal pain. COMPARISON STUDY: Abdominal CT dated 04/13/2015. TECHNIQUE: CT scan of the abdomen and pelvis is performed from the lung bases to the proximal femora. Images are reviewed in the axial, sagittal, and coronal planes. IV contrast was not administered for this examination due to a reported history of contrast allergy. Oral contrast was utilized. A dose lowering technique was utilized adhering to the principles of ALARA. CT DOSE: 509.96 mGy.cm FINDINGS: Lung bases: The heart is normal in size and without pericardial effusion. There are coronary artery calcifications. There is a large calcified granuloma at the right lung base. No airspace consolidation or pleural effusion is seen. Liver: The unenhanced liver is normal in size, contour, and attenuation. There is no intrahepatic biliary ductal dilatation. Gallbladder: Unremarkable. Spleen: Normal in size and attenuation. There are scattered calcified granulomas. Pancreas: The unenhanced pancreas is grossly unremarkable. Adrenal glands: Unremarkable. Kidneys: The unenhanced kidneys demonstrate cortical atrophy. There is mild to moderate right hydroureteronephrosis. The right ureter inserts on the dome of the bladder. There is urothelial thickening seen in the right renal pelvis involving the right ureter. There is mild right-sided perinephric stranding. There is minimal fullness of left renal collecting system without hydronephrosis. Nonobstructing calculi are present in the lower pole of the left kidney. No right renal calculi are identified. There is no evidence of contour deforming renal mass lesion. Abdominal vasculature: The abdominal aorta is normal in course and caliber noting moderate atherosclerotic calcification. Stomach and bowel: There is a tiny hiatal hernia. There are postoperative changes consistent with a history of Facundo-en-Y gastric bypass surgery. No bowel obstruction is seen. The appendix is well-visualized and normal. Peritoneum: There is no intraperitoneal free air or abdominal ascites. Lymphadenopathy: None. Pelvic viscera: The bladder and uterus are normal in appearance. A 2.7 cm cystic structure seen in the left adnexa, likely related to the left ovary. This is modestly increased in size from 2015. Skeletal structures: The skeletal structures are osteopenic. Mild lumbosacral spondylosis is observed. Advanced sclerotic change is noted at the pubic symphysis. No lytic or blastic lesions are seen. IMPRESSION: 1. There is mild to moderate right hydroureteronephrosis. The ureter is dilated to the bladder and may insert ectopically at the bladder dome. Hydronephrosis has increased from prior studies. 2. There is urothelial thickening within the right renal collecting system as well as involving the right ureter. There is also mild associated right-sided perinephric stranding. Correlation with clinical findings and urinalysis will be required. 3. Nonobstructing left renal calculi. 4. There is a 2.7 cm simple cystic focus in the left adnexa, likely related to the left ovary. This is of low suspicion but has slightly increased in size from 2015. Consider follow-up with a nonemergent pelvic ultrasound. 5. Findings are consistent with a Facundo-en-Y gastric bypass procedure. No bowel obstruction is seen. 6. Additional findings as above. Electronically signed by: Nico Miller M.D. 05/12/2017 1:04 PM Dictated Date/Time: 05/12/2017 12:50 PM The status of this report is Signed. Draft = Not yet reviewed or approved by Radiologist. Signed = Reviewed and approved by Radiologist. EKG LUPE DUBOIS ID:[id number] 12-MAY-2017 10:33:25 [facility] Sinus bradycardia Otherwise normal ECG When compared with ECG of 25-JUN-2014 14:54, Vent. rate has decreased BY 29 BPM QT has shortened Confirmed by ELISA PETERSON ([id number]) on 05/12/2017 2:27:08 PM 25mm/s 10mm/mV 150Hz 8.0 SP2 12SL 241 YOKO: 10 Referred by: Confirmed By: ELISA PETERSON Vent. 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 Epigastric pain and elevated lipase, likely secondary to pancreatitis vs GERD: - Admit to med/surg - NPO - IV NSS @ 125 ml/hr - IV Dilaudid PRN for pain management - IV Protonix 40 mg BID; hold Zantac 150 mg BID - Lipase 666- follow lipase daily - Check lipid panel/triglycerides - Abdominal CT- unremarkable gallbladder/pancreas, no bowel obstruction - UA negative Left adnexal 2.7 cm simple cyst: Non-emergent pelvic US recommended R ureteral obstruction s/p ureteral reconstruction w/ ileum in 2009, CKD stage III w/ baseline overnight stocker 1.2-1.5- follows w/ Dr. Castelan- STABLE: - CT of abdomen- mild to moderate R hydroureteronephrosis, R urothelial thickening- negative UA, nonobstructing L renal calculi Anxiety/depression: Citalopram 40 mg daily GERD, GI prophylaxis: Protonix IV BID DVT prophylaxis; TEDs/SCDs, ambulation Code Status: LEVEL I, FULL Dispo: From home, lives w/ - no discharge needs anticipated I personally interviewed and examined the patient. I agree with history of present illness and physical exam mentioned above, I also performed my own history taking and examination. Past medical history and review of system has been obtained by myself I reviewed all pertinent labs and studies Reviewed current medications I discussed and formulated of the assessment and plan mentioned above. Please refer to the Summary mentioned above by Miss De La Cruz. 61 years old lady presented with epigastric abdominal pain, lipase was elevated Assessment Abdominal pain with elevated lipase possible pancreatitis No history of excessive alcohol Take No history of triglyceridemia No imaging suggestive of cholestatic pancreatitis Plan Recheck lipids in a.m. Supportive care IV fluid hydration Bowel rest General Appearance: not in acute distress Eyes: normal Sclerae, extraocular muscle intact ENT: hearing grossly normal Neck: supple Respiratory/Chest: normal air entry bilateral ,no respiratory distress, no accessory muscle use Cardiovascular: regular rate, rhythm, + systolic murmur Abdomen: epigastric tenderness but no guarding, soft, no masses Extremities: no edema Neurologic/Psychiatric: Awake alert oriented times place and person moves all extremities sensation intact cranial nerves II-12 appear to be intact Skin: normal color, warm/dry, no rash Guero Roman MD, [facility] Level of Care Med/Surg Resuscitation Status FULL RESUSCITATION VTE Prophylaxis VTE Risk Assessment Done? Y/N: Yes Risk Level: Moderate Given or contraindicated: T.E.D. Stockings, SCD's
[2017-05-12 16:09] VITALS: BP 128/78; PULSE 58; TEMP 36.6; O2SAT 97; Ht 160 cm; Wt 70.1 kg
--- NOTE | 2017-05-12 16:23 | NUR ---
pt arrived to room 458 at 1600 via wheelchair from ER. Alert, oriented x4. able to make needs known. reports pain 3/10 in abdomen. reports 3/10 is an acceptable level of pain. oriented pt to hospital environment, NPO status, call gonzalez and TV use. verbalized understanding. primary nurse made aware.
[2017-05-12] MEDS ORDERED: PANTOprazole INJ 40 MG in SYRINGE 0 ML IV STA (16:27)
[2017-05-12] MEDS: SODIUM CHLORIDE 0.9% 1000ML 1,000 ML IV SCH (17:35)
[2017-05-12 23:50] VITALS: BP 112/68; PULSE 58; TEMP 36.8; O2SAT 98
[2017-05-13] MEDS: SODIUM CHLORIDE 0.9% 1000ML 1,000 ML IV SCH ×2 (00:45→09:19)
[2017-05-13 07:20] LABS: HEMOGLOBIN 13.8 g/dL (12.0-16.0); MEAN CELL VOLUME 93.9 fL (80-100); MEAN CORPUSCULAR HEMOGLOBIN 32.4 pg (25-34); MEAN CORPUSCULAR HGB CONC 34.5 g/dl (32-36); MEAN PLATELET VOLUME 10.6 fL (7.4-10.4); PLATELET COUNT 151 K/uL (130-400); RED CELL DISTRIBUTION WIDTH SD 44.7 fL (36.4-46.3); WHITE BLOOD COUNT 4.13 K/uL (4.8-10.8)
[2017-05-13] MEDS: CITALOPRAM 40 MG TAB PO SCH (07:26)
[2017-05-13 07:49] LABS: CALCIUM 8.9 mg/dl (8.5-10.1); CREATININE 1.04 mg/dl (0.60-1.20); POTASSIUM 4.3 mmol/L (3.5-5.1)
[2017-05-13 08:23] VITALS: BP 120/76; PULSE 53; TEMP 36.7; O2SAT 97
[2017-05-13] MEDS: LACTATED RINGER'S 1000ML 1,000 ML IV SCH ×3 (11:45→22:42)
--- NOTE | 2017-05-13 12:04 | Gastrointestinal Consultation ---
Gastrointestinal Consultation Date of Consultation: May 13, 2017 Attending Physician: Flores Colvin Consulting Physician: Lonnie Rolle Reason for Consultation: Epigastric abd pain, hx of gastric bypass History of Present Illness Patient is a 61 year old female w PMHx of obesity s/p gastric bypass in 02/[address] Subramanian in [facility] [place], R ureteral obstruction s/p ureteral construction w ileum in 2009, depression, CKD III, HTN, GERD who presented to ED w worsening of epigastric abd pain for over a month now. She described the pain as stabbing mostly sometimes radiating to LUQ and back. Pain worse w taking deep breath or sneezing. Denies any association when eating/drinking, no change in appetite or weight loss. She had hx of marginal ulcer in 2014 after her bypass treated w PPI , Carfate, Cytotec. Last EGD eval 04/2015 showed no more ulcer occurrence. Denies any NSAIDs intake, ETOH, is on Zantac at home. Labs here showed no leukocytosis, H/H stable, no coagulopathy. CMP normal. Lipase was elevated to 666, down now to 289. She had normal CXR, non contrasted CT abd/pelvis showed normal gallbladder and pancreas. There is a mild to moderate R hydroureteronephrosis which has increased from prior studies. There is a lso a R urothelial thickening within R renal collecting system. Past Medical/Surgical History Medical Problems: (1) Complications of gastric bypass surgery Status: Acute (2) Dehydration Status: Acute (3) Epigastric abdominal pain Status: Acute (4) LUQ abdominal pain Status: Acute (5) Pancreatitis Status: Acute (6) Renal insufficiency Status: Acute Past Medical History: See above. Past Surgical History: See above. Family History FH: HTN (hypertension) FH: cancer FH: diabetes mellitus FH: gallbladder disease FH: kidney disease FH: lung disease FH: seizures Heart disease Social History Smoking Status: Never Smoker Alcohol Use: none Drug Use: none Marital Status: Housing Status: lives with significant other Occupation Status: employed Allergies Coded Allergies: Gadolinium Derivatives (Verified Allergy, Severe, ANAPHYLAXIS, 05/12/17) IN IV DYE? Iodine (Verified Allergy, Severe, ANAPHYLAXIS, 05/12/17) Amoxicillin (Verified Allergy, Intermediate, SEVERE HIVES, 05/12/17) Sulfamethoxazole w/Trimethoprim (Verified Allergy, Unknown, RASH, 05/12/17 ) Current Medications Home Meds and Scripts Medications Dose Route/Sig Max Daily Dose Days Date Category Yuvafem (Estradiol Vaginal) 10 Mcg Tab 1 Tab PV 2XWK 05/12/17 Reported Flonase Allergy Relief (Fluticasone Propionate (Nasal)) 50 Mcg/Act Spr 2 [place] LIDYA DAILY PRN 05/12/17 Reported Vitamin B-12 1000 Mcg (Cyanocobalamin) 1,000 Mcg Tab 1,000 Mcg SL BID 07/17/16 Reported Biotin 5000 (Biotin) 5 Mg Cap 1 Tab PO QAM 07/17/16 Reported Zyrtec (Cetirizine HCl) 10 Mg Tab 10 Mg PO DAILY PRN 07/17/16 Reported Calcium Citrate Chewy Bit 500-500 mg-Unit (Calcium Citrate-Vitamin D) 1 Chw Chw 1 Tab PO BID 07/17/16 Reported Vitamin D3 (Cholecalciferol) 1,000 Unit Tab 1 Tab PO QAM 07/17/16 Reported Multivitamin (Multiple Vitamin) 1 Tab Tab 1 Tab PO BID 07/17/16 Reported Citalopram Hydrobromide (Citalopram) 40 Mg Tab 1 Tab PO QAM 07/17/16 Reported Zantac (Ranitidine HCl) 150 Mg Tab 1 Tab PO BID 04/13/15 Reported Review of Systems Constitutional: No fever, No chills Respiratory: No cough, No shortness of breath Cardiac: No chest pain Abdomen: + pain, No nausea, No vomiting, No diarrhea, No constipation, No GI bleeding Skin: No rash, No itch, No jaundice Physical Exam Date Time Temp Pulse Resp B/P (MAP) Pulse Ox O2 Delivery O2 Flow Rate FiO2 05/13/17 08:23 36.7 53 16 120/76 (91) 97 Room Air 05/13/17 08:00 Room Air 05/13/17 00:00 Room Air 05/12/17 23:50 36.8 58 18 112/68 (83) 98 Room Air 05/12/17 20:00 Room Air 05/12/17 17:00 Room Air 05/12/17 16:09 36.6 58 18 128/78 97 Room Air 05/12/17 15:52 59 18 143/73 96 Room Air 05/12/17 14:28 61 18 135/62 98 Room Air 05/12/17 12:54 54 18 137/79 98 Room Air General Appearance: WD/WN, no apparent distress Eyes: normal inspection, PERRL, EOMI Neck: supple, no JVD, trachea midline Respiratory/Chest: normal breath sounds, no respiratory distress, no accessory muscle use Cardiovascular: regular rate, rhythm, no gallop, no murmur Abdomen: normal bowel sounds, soft, + tenderness (epigastric ) Extremities: normal inspection, no pedal edema, no calf tenderness Neurologic/Psych: alert, normal mood/affect, oriented x 3 Skin: normal color, no jaundice, no rash Laboratory Results Last 24 Hours Test 05/13/17 06:59 White Blood Count 4.13 K/uL Red Blood Count 4.26 M/uL Hemoglobin 13.8 g/dL Hematocrit 40.0 % Mean Corpuscular Volume 93.9 fL Mean Corpuscular Hemoglobin 32.4 pg Mean Corpuscular Hemoglobin Concent 34.5 g/dl RDW Standard Deviation 44.7 fL RDW Coefficient of Variation 13.0 % Platelet Count 151 K/uL Mean Platelet Volume 10.6 fL Sodium Level 142 mmol/L Potassium Level 4.3 mmol/L Chloride Level 112 mmol/L Carbon Dioxide Level 24 mmol/L Anion Gap 6.0 mmol/L Blood Urea Nitrogen 19 mg/dl Creatinine 1.04 mg/dl Est Creatinine Clear Calc Drug Dose 54.7 ml/min Estimated GFR () 68.1 Estimated GFR (Non- 58.8 BUN/Creatinine Ratio 18.3 Random Glucose 84 mg/dl Calcium Level 8.9 mg/dl Triglycerides Level 154 mg/dl Cholesterol Level 177 mg/dl HDL Cholesterol 40 mg/dl LDL Cholesterol, Calculated 106 mg/dl VLDL Cholesterol, Calculated 31 mg/dl Cholesterol/HDL Ratio 4.4 Lipase 289 U/L Impression Patient is a 61 year old female with worsening epigastric pain over 1 month. No n/v, weight or appetite loss. Hx of gastric bypass in 2014 w marginal ulcer development treated successfully w PPI, Carafate, Cytotec. No NSAID, ETOH, tobacco per pt. She has also elevated lipase on admission, still has gallbladder , non contrasted CT abd/pelvis w/o signs of gallstones or pancreatitis. Plan - Keep NPO for EGD eval to r/o PUD this afternoon by Dr. Rolle - PERRY u/s to r/o gallstones/sludge - LR @ 200ml/hr - PPI IV BID ATTESTATION: I have performed a history and physical examination of this patient and reviewed the electronic record. Specifically, on physical examination there is minimal epigastric tenderness. I have discussed the case with NILS Luke. The above note reflects my findings, conclusions, and recommendations. Lonnie Rolle MD
--- NOTE | 2017-05-13 13:00 | NUR ---
A: Patient off floor by wheelchair at this time to have gallbladder US completed and then for EGD. All jewelry locked in medicine cabinet. Patient chose to take denture cup with her and remove partial prior to procedure. All other belongings with at bedside.
--- NOTE | 2017-05-13 13:14 | Hospitalist Progress Note ---
Hospitalist Progress Note Date of Service May 13, 2017. Subjective Pt evaluation today including: conversation w/ patient, conversation w/ family Pt admitted with epigastric abd pain x 1 month, worsening in severity the last 3 -4 days. It sometimes radiates around the left rib cage, and progressed to the point where it would no longer wane, and is constant. Also started hurting with any movement at all and with deep breathing. Denies CP or SOB. Cannot relate it to eating, but worsens with lying flat. Constitutional: No fever Respiratory: No shortness of breath Cardiovascular: No chest pain Abdomen: + pain, + nausea, No vomiting, No diarrhea, No constipation, No GI bleeding All Other Systems: Reviewed and Negative Objective Vital Signs Date Time Temp Pulse Resp B/P (MAP) Pulse Ox O2 Delivery O2 Flow Rate FiO2 05/13/17 08:23 36.7 53 16 120/76 (91) 97 Room Air 05/13/17 08:00 Room Air 05/13/17 00:00 Room Air 05/12/17 23:50 36.8 58 18 112/68 (83) 98 Room Air 05/12/17 20:00 Room Air 05/12/17 17:00 Room Air 05/12/17 16:09 36.6 58 18 128/78 97 Room Air 05/12/17 15:52 59 18 143/73 96 Room Air 05/12/17 14:28 61 18 135/62 98 Room Air Physical Exam General Appearance: WD/WN, no apparent distress Eyes: normal inspection, sclerae normal ENT: hearing grossly normal Neck: trachea midline Respiratory/Chest: lungs clear, normal breath sounds, no respiratory distress, no accessory muscle use Cardiovascular: regular rate, rhythm, no edema, no gallop, no JVD, no murmur Abdomen: normal bowel sounds, soft, no organomegaly, + tenderness (in epigastric region without guarding or rebound) Extremities: non-tender, normal inspection, no pedal edema, no calf tenderness Neurologic/Psychiatric: alert, normal mood/affect, oriented x 3 Skin: normal color, warm/dry, no rash Laboratory Results Last 24 Hours Test 05/13/17 06:59 White Blood Count 4.13 K/uL Red Blood Count 4.26 M/uL Hemoglobin 13.8 g/dL Hematocrit 40.0 % Mean Corpuscular Volume 93.9 fL Mean Corpuscular Hemoglobin 32.4 pg Mean Corpuscular Hemoglobin Concent 34.5 g/dl RDW Standard Deviation 44.7 fL RDW Coefficient of Variation 13.0 % Platelet Count 151 K/uL Mean Platelet Volume 10.6 fL Sodium Level 142 mmol/L Potassium Level 4.3 mmol/L Chloride Level 112 mmol/L Carbon Dioxide Level 24 mmol/L Anion Gap 6.0 mmol/L Blood Urea Nitrogen 19 mg/dl Creatinine 1.04 mg/dl Est Creatinine Clear Calc Drug Dose 54.7 ml/min Estimated GFR () 68.1 Estimated GFR (Non- 58.8 BUN/Creatinine Ratio 18.3 Random Glucose 84 mg/dl Calcium Level 8.9 mg/dl Triglycerides Level 154 mg/dl Cholesterol Level 177 mg/dl HDL Cholesterol 40 mg/dl LDL Cholesterol, Calculated 106 mg/dl VLDL Cholesterol, Calculated 31 mg/dl Cholesterol/HDL Ratio 4.4 Lipase 289 U/L Assessment and Plan Patient is a 61 y/o female, with PMHx of obesity s/p gastric bypass in 2014, marginal ulcer/PUD 1 month after surgery, R ureteral obstruction s/p ureteral reconstruction w/ ileum in 2009, anxiety/depression, CKD stage III, HTN, and GERD, who presented to the ED with progressive epigastric discomfort x1 month. Epigastric pain and elevated lipase-could be PUD at anastomosis site vs gastritis vs acute pancreatitis. Possible but not as likely is symptomatic cholelithiasis given rapid weight loss since gastric bypass. Lipase decreased to normal this AM, no leukocytosis, afebrile, LFTs normal, Hgb normal. Triglycerides normal, Abdominal CT- unremarkable gallbladder/pancreas, no bowel obstruction, chronic findings in rt ureter except slightly worse rt hydro, UA normal. Not hypoxic, no tachycardia, ECG fine, and with direct TTP of epigastric region on exam, not likely to be cardiac or pulmonary in nature. 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 Castelan- STABLE: - CT of abdomen- mild to moderate R hydroureteronephrosis, R urothelial thickening- negative UA, nonobstructing L renal calculi Anxiety/depression: stable -continue Citalopram 40 mg daily GERD, GI prophylaxis: Protonix IV BID DVT prophylaxis; TEDs/SCDs, ambulation Code Status: LEVEL I, FULL Dispo: From home, lives w/ - no discharge needs anticipated
--- NOTE | 2017-05-13 13:31 | DIAGNOSTIC IMAGING REPORT ---
ABDOMINAL ULTRASOUND, RIGHT UPPER QUADRANT HISTORY: Right upper quadrant abdominal pain. r/o gallstones / sludge. COMPARISON: Abdomen and pelvis CT 05/12/2017. FINDINGS: Pancreas: The pancreatic tail is obscured by overlying bowel gas. The remaining portions of the pancreas are within normal limits. Liver: No hepatic masses. The liver is normal in size. Gallbladder: No gallbladder wall thickening. No gallstones. CBD: 4 mm. Right kidney: Mild right hydronephrosis, unchanged. IMPRESSION: 1. Normal gallbladder. No gallstones. 2. Mild right hydronephrosis, unchanged. Electronically signed by: Steffen Frederick M.D. 05/13/2017 1:29 PM Dictated Date/Time: 05/13/2017 1:26 PM
[2017-05-13] MEDS ORDERED: LIDOCAINE HCL 2% 2 ML VIAL (20MG/ML) ONE (15:26)
[2017-05-13] MEDS ORDERED: PROPOFOL IV EMULSION 10 MG/ML 20 ML VIAL IV ONE (15:26)
--- NOTE | 2017-05-13 15:26 | GI REPORT ---
Procedure Date: 05/13/2017 3:10 PM Procedure: Upper GI endoscopy Indications: Epigastric abdominal pain, Assessment following Facundo-en-Y gastrojejunostomy Medicines: Monitored Anesthesia Care Complications: No immediate complications. Estimated blood loss: None. Estimated Blood Loss: Estimated blood loss: none. Procedure: Pre-Anesthesia Assessment: - Prior to the procedure, a History and Physical was performed, and patient medications, allergies and sensitivities were reviewed. The patient's tolerance of previous anesthesia was reviewed. - ASA Grade Assessment: II - A patient with mild systemic disease. After obtaining informed consent, the endoscope was passed under direct vision. Throughout the procedure, the patient's blood pressure, pulse, and oxygen saturations were monitored continuously. The scope was introduced through the mouth, and advanced to the efferent jejunal loop. The upper GI endoscopy was accomplished with ease. The patient tolerated the procedure well. Findings: The upper third of the esophagus, middle third of the esophagus and lower third of the esophagus were normal. The Z-line was regular and was found 38 cm from the incisors. A small sliding hiatal hernia was present. Normal mucosa was found in the entire examined stomach. Biopsies were taken with a cold forceps for Helicobacter pylori testing. Evidence of a gastric bypass was found. A gastric pouch with a large size was found. The staple line appeared intact. The gastrojejunal anastomosis was characterized by a deep ulceration on the jejunal side and an intact staple line. This was traversed. The examined jejunum was normal. Impression: - Normal upper third of esophagus, middle third of esophagus and lower third of esophagus. - Z-line regular, 38 cm from the incisors. - Small sliding hiatal hernia. - Normal mucosa was found in the entire stomach. Biopsied. - Gastric bypass with a large-sized pouch and intact staple line. Gastrojejunal anastomosis characterized by ulceration and an intact staple line. - Normal examined jejunum. Recommendation: - Await pathology results. - Use misoprostol 100 micrograms PO QID. - Use a proton pump inhibitor PO BID. - Repeat upper endoscopy in 2 months to check healing. - [facility] care. Lonnie Rolle M.D. Lonnie Rolle MD 05/13/2017 3:26:06 PM This report has been signed electronically. Note Initiated On: 05/13/2017 3:10 PM I attest to the content of the Intraoperative Record and orders documented therein, exceptions below
--- NOTE | 2017-05-13 15:31 | Anesthesiology Progress Note ---
Anesthesia Post Op Note Date & Time May 13, 2017 at 15:30 Vital Signs Pain Intensity: 3.0 Vital Signs Past 12 Hours Date Time Temp Pulse Resp B/P (MAP) Pulse Ox O2 Delivery O2 Flow Rate FiO2 05/13/17 13:40 36.8 18 142/72 (95) 96 Room Air 05/13/17 08:23 36.7 53 16 120/76 (91) 97 Room Air 05/13/17 08:00 Room Air Notes Mental Status: alert / awake / arousable, participated in evaluation Pt Amnestic to Procedure: Yes Nausea / Vomiting: adequately controlled Pain: adequately controlled Airway Patency, RR, SpO2: stable & adequate BP & HR: stable & adequate Hydration State: stable & adequate Anesthetic Complications: no major complications apparent
[2017-05-13 16:00] VITALS: O2SAT 96
[2017-05-13 16:14] VITALS: BP 139/85; PULSE 53; TEMP 36.6; O2SAT 96
--- NOTE | 2017-05-13 16:21 | NUR ---
Pt screened for MUST. Please refer to linked assessment Addendum: 05/13/17 at [address] Amended: Links added.
[2017-05-13] MEDS: MISOPROSTOL 100 MCG TAB PO SCH ×2 (16:49→19:56)
[2017-05-13] MEDS: PANTOprazole INJ 40 MG in SYRINGE 0 ML IV SCH (19:56)
[2017-05-13 23:33] VITALS: BP 135/82; PULSE 47; TEMP 36.6; O2SAT 98
--- NOTE | 2017-05-14 00:43 | NUR ---
ID: Pt A&O x4. VSS. OOB independently to BR. Pt states she had some pain earlier in the day when she coughed hard, but has been resting comfortably and denies pain currently. Tolerating regular diet. IVF infusing per MD order. Plans to discharge to home when medically stable. Will continue to monitor.
[2017-05-14] MEDS: LACTATED RINGER'S 1000ML 1,000 ML IV SCH ×2 (05:26→12:45)
[2017-05-14 06:25] LABS: HEMOGLOBIN 12.9 g/dL (12.0-16.0); MEAN CELL VOLUME 92.7 fL (80-100); MEAN CORPUSCULAR HEMOGLOBIN 31.5 pg (25-34); MEAN CORPUSCULAR HGB CONC 33.9 g/dl (32-36); MEAN PLATELET VOLUME 10.9 fL (7.4-10.4); PLATELET COUNT 148 K/uL (130-400); RED CELL DISTRIBUTION WIDTH CV 12.6 % (11.5-14.5); RED CELL DISTRIBUTION WIDTH SD 42.6 fL (36.4-46.3); WHITE BLOOD COUNT 4.43 K/uL (4.8-10.8)
[2017-05-14 07:00] LABS: CALCIUM 8.6 mg/dl (8.5-10.1); CREATININE 0.99 mg/dl (0.60-1.20)
[2017-05-14 07:39] VITALS: BP 131/78; PULSE 52; TEMP 36.8; O2SAT 96
[2017-05-14] MEDS: MISOPROSTOL 100 MCG TAB PO SCH ×2 (08:02→12:01)
[2017-05-14] MEDS: CITALOPRAM 40 MG TAB PO SCH (08:02)
[2017-05-14] MEDS: PANTOprazole INJ 40 MG in SYRINGE 0 ML IV SCH (08:03)
[2017-05-14 08:15] VITALS: O2SAT 96
--- NOTE | 2017-05-14 11:51 | Gastroenterology Progress Note ---
Progress Note Date of Service: May 14, 2017 Subjective Pt evaluation today including: conversation w/ patient, physical exam, chart review, lab review, review of inpatient medication list Pt reports abd pain is improved. Able to tolerate yogurt today. Had some BM. Denies any n/v. Review of Systems Constitutional: No fever Respiratory: No cough, No shortness of breath Cardiac: No chest pain Abdomen: + pain (epigastric, improved. ), No nausea, No vomiting Medications Current Inpatient Medications Medications (Trade) Dose Ordered Sig/Martin Route Start Time Stop Time Status Last Admin Dose Admin Acetaminophen (Tylenol Tab) 650 mg Q4H PRN PO 05/12/17 15:15 06/11/17 15:14 Al Hydrox/Mg Hydrox/Simethicone (Maalox Max Susp) 15 ml Q4H PRN PO 05/12/17 15:15 06/11/17 15:14 Magnesium Hydroxide (Milk Of Magnesia Susp) 30 ml Q6H PRN PO 05/12/17 15:15 06/11/17 15:14 Polyethylene (Miralax Powder Packet) 17 gm DAILY PRN PO 05/12/17 15:15 06/11/17 15:14 Ondansetron HCl (Zofran Inj) 4 mg Q6H PRN IV 05/12/17 15:15 06/11/17 15:14 Hydromorphone HCl (Dilaudid Inj) 1 mg Q2H PRN IV 05/12/17 15:15 05/26/17 15:14 Citalopram Hydrobromide (celeXA TAB) 40 mg QAM PO 05/13/17 08:00 06/12/17 08:59 05/14/17 08:02 40 MG Lactated Ringer's 1,000 ml @ 150 mls/hr Q6H40M IV 05/13/17 11:45 06/12/17 11:44 05/14/17 05:26 150 MLS/HR Misoprostol (Cytotec Tab) 100 mcg QID PO 05/13/17 17:00 06/12/17 16:59 05/14/17 08:02 100 MCG Pantoprazole Sodium (Protonix Tab) 40 mg BID PO 05/14/17 20:00 06/13/17 19:59 Objective Vital Signs Date Time Temp Pulse Resp B/P (MAP) Pulse Ox O2 Delivery O2 Flow Rate FiO2 05/14/17 08:15 96 Room Air 05/14/17 07:39 36.8 52 18 131/78 (95) 96 Room Air 05/13/17 23:33 36.6 47 18 135/82 (99) 98 Room Air 05/13/17 23:15 Room Air 05/13/17 16:14 36.6 53 18 139/85 (103) 96 Room Air 05/13/17 16:00 96 Room Air 05/13/17 15:53 56 16 146/84 (104) 96 Room Air 05/13/17 15:38 61 16 128/76 (93) 96 Room Air 05/13/17 15:23 66 16 117/61 (79) 96 Room Air 05/13/17 13:40 36.8 18 142/72 (95) 96 Room Air Physical Exam General Appearance: WD/WN, no apparent distress Eyes: normal inspection, PERRL, EOMI Neck: supple, no JVD, trachea midline Respiratory/Chest: normal breath sounds, no respiratory distress, no accessory muscle use Cardiovascular: regular rate, rhythm, no gallop, no murmur Abdomen: normal bowel sounds, soft, + tenderness (epigastric ) Extremities: normal inspection, no pedal edema, no calf tenderness Neurologic/Psych: alert, normal mood/affect, oriented x 3 Skin: normal color, no jaundice, no rash Laboratory Results Last 24 Hours Test 05/14/17 06:13 05/14/17 07:27 White Blood Count 4.43 K/uL Red Blood Count 4.10 M/uL Hemoglobin 12.9 g/dL Hematocrit 38.0 % Mean Corpuscular Volume 92.7 fL Mean Corpuscular Hemoglobin 31.5 pg Mean Corpuscular Hemoglobin Concent 33.9 g/dl RDW Standard Deviation 42.6 fL RDW Coefficient of Variation 12.6 % Platelet Count 148 K/uL Mean Platelet Volume 10.9 fL Sodium Level 141 mmol/L Potassium Level mmol/L 3.8 mmol/L Chloride Level 111 mmol/L Carbon Dioxide Level 24 mmol/L Anion Gap 6.0 mmol/L Blood Urea Nitrogen 18 mg/dl Creatinine 0.99 mg/dl Est Creatinine Clear Calc Drug Dose 57.5 ml/min Estimated GFR () 72.3 Estimated GFR (Non- 62.4 BUN/Creatinine Ratio 18.3 Random Glucose 115 mg/dl Calcium Level 8.6 mg/dl Assessment and Plan Patient is a 61 year old female with worsening epigastric pain over 1 month. No n/v, weight or appetite loss. Hx of gastric bypass in 2014 w marginal ulcer development treated successfully w PPI, Carafate, Cytotec. No NSAID, ETOH, tobacco per pt. She has also elevated lipase on admission, still has gallbladder , non contrasted CT abd/pelvis w/o signs of gallstones or pancreatitis. EGD on 05/[address] Rolle showed gastrojejunal anastomosis ulcer. Stomach bx obtained, path pending. RUQ u/s showed no signs of gallstones, sludge , inflammation. Plans - OK for DC from GI standpoint. Pls continue PPI PO BID and Cytotec 100mcg QID for at least 2 months. Will ask [facility] office to contact her to make f/u EGD eval in [address] Bernard. - Avoid NSAIDs, ASA, ETOH. ATTESTATION: I have performed a history and physical examination of this patient and reviewed the electronic record. Specifically, on history her yari is almost gone and she is tolerating diet . I have discussed the case with NILS Luke. The above note reflects my findings, conclusions, and recommendations. Lonnie Rolle MD
[2017-05-14] MEDS ORDERED: CYT100 PO (12:45)
[2017-05-14] MEDS ORDERED: PANT1TAB4 PO (12:45)
--- NOTE | 2017-05-14 12:50 | Discharge Instructions ---
Discharge Instructions Date of Service May 14, 2017. Admission Reason for Admission: Abdominal pain Discharge Discharge Diagnosis / Problem: Jeujunal ulcer/Anastamosis site ulcer Discharge Goals Goal(s): Improve disease control, Diagnostic testing, Therapeutic intervention Activity Recommendations Activity Limitations: resume your previous activity Lifting Limitations: none Exercise/Sports Limitations: gradually increase as tolerated May Resume Sexual Activity: when tolerated Shower/Bathe: no limitations Driving or Machine Use: no limitations . Instructions / Follow-Up Instructions / Follow-Up You were admitted with abdominal pain that was found to be secondary to an ulcer near the site where your bowel is connected to your stomach after gastric bypass. You need to take misoprostol 100 mcg four times a day and pantoprazole 40mg twice a day for at least 2 months. You will then need to see Dr. Bernard and have a repeat EGD (scope) to reassess the ulcer to ensure it is healed. Please avoid all alcohol, NSAIDs (like ibuprofen, Aleve, naproxen, Motrin), and aspirin-containing products. Please follow up with your PCP within 1 week as scheduled. Incidentally noted is a left ovarian cyst that is enlarging. Your PCP should order a pelvic ultrasound to further assess this and refer you to Gynecology if necessary. Current Hospital Diet Patient's current hospital diet: Regular Diet Discharge Diet Recommended Diet: Regular Diet Procedures Procedures Performed: EGD Chest xray CT abdomen/pelvis Gallbladder ultrasound Pending Studies Studies pending at discharge: yes List of pending studies: Biopsy result from EGD Laboratory Results Last 24 Hours Test 05/14/17 06:13 05/14/17 07:27 White Blood Count 4.43 K/uL Red Blood Count 4.10 M/uL Hemoglobin 12.9 g/dL Hematocrit 38.0 % Mean Corpuscular Volume 92.7 fL Mean Corpuscular Hemoglobin 31.5 pg Mean Corpuscular Hemoglobin Concent 33.9 g/dl RDW Standard Deviation 42.6 fL RDW Coefficient of Variation 12.6 % Platelet Count 148 K/uL Mean Platelet Volume 10.9 fL Sodium Level 141 mmol/L Potassium Level mmol/L 3.8 mmol/L Chloride Level 111 mmol/L Carbon Dioxide Level 24 mmol/L Anion Gap 6.0 mmol/L Blood Urea Nitrogen 18 mg/dl Creatinine 0.99 mg/dl Est Creatinine Clear Calc Drug Dose 57.5 ml/min Estimated GFR () 72.3 Estimated GFR (Non- 62.4 BUN/Creatinine Ratio 18.3 Random Glucose 115 mg/dl Calcium Level 8.6 mg/dl Lipid Panel Test 05/13/17 06:59 Range/Units Triglycerides Level 154 H 0-150 mg/dl Cholesterol Level 177 0-200 mg/dl HDL Cholesterol 40 mg/dl Cholesterol/HDL Ratio 4.4 LDL Cholesterol, Calculated 106 mg/dl Medical Emergencies . Who to Call and When: Medical Emergencies: If at any time you feel your situation is an emergency, please call 911 immediately. . Non-Emergent Contact Non-Emergency issues call your: Primary Care Provider, Road Roller Engineer Call Non-Emergent contact if: you have a fever, temperature is above 100.5, your pain is not controlled, your pain is worsening, your pain is unusual for you, your pain is concerning you, you have any medication questions you develop worsening abdominal pain, nausea or vomiting, blood in your stool, or black tarry stools. . . "Provider Documentation" section prepared by Flores Colvin. . VTE Core Measure Inpt VTE Proph given/why not?: Yu Smith, SCD's
--- NOTE | 2017-05-14 13:02 | Discharge Summary ---
Discharge Summary Date of Service May 14, 2017. Discharge Summary Admission Date: May 12, 2017 at 15:22 Discharge Date: May 14, 2017 Discharge Disposition: Home Principal Diagnosis: Jeujunal ulcer Problems/Secondary Diagnoses: s/p gastric bypass in 2014 h/o previous marginal ulcer/PUD 1 month after surgery h/o R ureteral obstruction s/p ureteral reconstruction w/ ileum in 2009 anxiety/depression CKD stage III HTN GERD elevated lipase Left adnexal 2.7 cm enlarging cystic structure on CT pelvis Procedures: EGD CT abd/pel CXR RUQ US Consultations: Gastroenterology Medication Reconciliation New Medications: Misoprostol (Misoprostol) 100 Mcg Tab 100 MCG PO QID for 90 Days, #360 TAB Pantoprazole (Pantoprazole Sodium) 40 Mg Tab 40 MG PO BID for 90 Days, #180 TAB Continued Medications: Biotin (Biotin 5000) 5 Mg Cap 1 TAB PO QAM Calcium Citrate-Vitamin D (Calcium Citrate Chewy Bit 500-500 mg-Unit) 1 Chw Chw 1 TAB PO BID Cetirizine (Zyrtec) 10 Mg Tab 10 MG PO DAILY PRN for ALLERGIES Cholecalciferol (Vitamin D3) 1,000 Unit Tab 1 TAB PO QAM Citalopram (Citalopram Hydrobromide) 40 Mg Tab 1 TAB PO QAM Cyanocobalamin (Vitamin B-12 1000 Mcg) 1,000 Mcg Tab 1000 MCG SL BID Estradiol Vaginal (Yuvafem) 10 Mcg Tab 1 TAB PV 2XWK Fluticasone Propionate (Nasal) (Flonase Allergy Relief) 50 Mcg/Act Spr 2 SPRAY LIDYA DAILY PRN for CONGESTION Multiple Vitamin (Multivitamin) 1 Tab Tab 1 TAB PO BID Discontinued Medications: Ranitidine Hcl (Zantac) 150 Mg Tab 1 TAB PO BID Discharge Exam Pt feeling better, tolerating food. Still has epigastric pain but is improved since admission. No other complaints, no CP or SOB, no melena or bloody stools, no N/V. SHe is ready for discharge. ROS: Constitutional: No fever Respiratory: No shortness of breath Cardiovascular: No chest pain Abdomen: + pain, + nausea, No vomiting, No diarrhea, No constipation, No GI bleeding All Other Systems: Reviewed and Negative Physical Exam Vitals reviewed General Appearance: WD/WN, no apparent distress Eyes: normal inspection, sclerae normal ENT: hearing grossly normal Neck: trachea midline Respiratory/Chest: lungs clear, normal breath sounds, no respiratory distress, no accessory muscle use Cardiovascular: regular rate, rhythm, no edema, no gallop, no JVD, no murmur Abdomen: normal bowel sounds, soft, no organomegaly, + tenderness (in epigastric region without guarding or rebound) Extremities: non-tender, normal inspection, no pedal edema, no calf tenderness Neurologic/Psychiatric: alert, normal mood/affect, oriented x 3 Skin: normal color, warm/dry, no rash Hospital Course Patient is a 61 y/o female, with PMHx of obesity s/p gastric bypass in 2014, marginal ulcer/PUD 1 month after surgery, R ureteral obstruction s/p ureteral reconstruction w/ ileum in 2009, anxiety/depression, CKD stage III, HTN, and GERD, who presented to the ED with progressive epigastric discomfort x1 month. Epigastric pain and elevated lipase- Lipase decreased to normal after IVF hydration, no leukocytosis, afebrile, LFTs normal, Hgb normal. Triglycerides normal. Abdominal CT- unremarkable gallbladder/pancreas, no bowel obstruction, chronic findings in rt ureter except slightly worse rt hydro, UA normal. Not hypoxic, no tachycardia, ECG fine, and with direct TTP of epigastric region on exam, not likely to be cardiac or pulmonary in nature. RUQ US with no gallstones or sludge EGD revealed deep jejunal ulcer at anastomosis site. 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 Castelan- STABLE: - CT of abdomen- mild to moderate R hydroureteronephrosis, R urothelial thickening- negative UA, nonobstructing L renal calculi Anxiety/depression: stable -continue Citalopram 40 mg daily Stable for discharge to home today Total Time Spent: Greater than 30 minutes This includes examination of the patient, discharge planning, medication reconciliation, and communication with other providers. Discharge Instructions Please refer to the electronic Patient Visit Report (Discharge Instructions) for additional information. Follow-Up PCP within 1 week Needs pelvic US for left ovarian cystic structure GI-Dr. Bernard, in 2 months for repeat EGD Additional Copies To Marco Antonio, Stalni Hansen D.O.; Anali Mercado ., BRAZING FURNACE OPERATOR
[2017-05-14 13:15] VITALS: BP 131/78; PULSE 52; TEMP 36.8; O2SAT 96
--- NOTE | 2017-05-14 14:00 | NUR ---
A: Patient discharged per MD order. Discharge teaching completed with patient and pt's daughter at bedside, all questions answered. IV site in left arm removed with catheter intact. Patient dressed in own clothes, pt packed own belonging up on own. Patient refuses wheelchair escort out, wishes to walk out on own with daughter. Daughter to transport patient home via personal vehicle.
[2017-05-14] MEDS ORDERED: PANTOprazole SOD 40 MG TAB PO SCH (20:00)
--- NOTE | 2017-05-15 16:11 | NUR ---
[facility]: Pt has follow up appts in place: PCP on May [address] Bernard on July 17.
--- NOTE | 2017-05-19 06:55 | EDITING REQUIRED CODING QUERY ---
CODING QUERY To promote full compliance with coding requirements relating to patient care, provider participation is requested in all cases of vocational rehabilitation specialist uncertainty. Please assist us with the question(s) below: Coding Question(s): Dr. Rolle, Was the gastrojejunal anastomosis ulcer ( ) a complication of the bariatric surgery ( ) not a complication of the bariatric surgery ( ) other, please explain Physician's Response(s): Thank you for your time, JCARLOS Mckeon, ENGAGEMENT SPECIALIST
== END 2017-05-14 14:12 | disposition home or self-care (01) | DRG 381 ==
LOC: C.EDB 09:59 → UNDOADMIN 14:59 → C.MS4W 14:59 → ENRESERV 15:33
PROVIDERS: ADMIT Internal Medicine; ATTEND Family Medicine
PROC: 0DB68ZX Excision of Stomach, Via Natural or Artificial Opening Endoscopic, Diagnostic (ICD-10-PCS; principal; 2017-05-13 14:00)
DX: K28.9 Gastrojejunal ulcer, unspecified as acute or chronic, without hemorrhage or perforation (principal); N13.30 Unspecified hydronephrosis; R74.8 Abnormal levels of other serum enzymes; K44.9 Diaphragmatic hernia without obstruction or gangrene; I12.9 Hypertensive chronic kidney disease with stage 1 through stage 4 chronic kidney disease, or unspecified chronic kidney disease; N18.3 Chronic kidney disease, stage 3 (moderate); K21.9 Gastro-esophageal reflux disease without esophagitis; F41.9 Anxiety disorder, unspecified; F32.9 Major depressive disorder, single episode, unspecified; Z98.84 Bariatric surgery status; Z79.890 Hormone replacement therapy; Z79.899 Other long term (current) drug therapy

== ENCOUNTER → 2017-05-25 | Outpatient (CLI) | payer OTHER ==
[~2017-05-25] MED LIST changes: +CYT100 PO; +ESTR10TA3 PV; -FLUT0.0529 NAE; +FLUT0.15 NAE; -PRMVC TOP; +PRT40 PO; -RANI150T3 PO; -TRMO115 TOP
--- NOTE | 2017-05-25 13:46 | DIAGNOSTIC IMAGING REPORT ---
EXAMINATION: PELVIC ULTRASOUND (transabdominal and endovaginal scanning) CLINICAL HISTORY: N94.9 adnexal cystic lesion COMPARISON STUDY: CT scan dated 05/12/2017 FINDINGS: The uterus measured 6.6 x 3.4 x 3.5 cm.. The endometrial stripe measured 3 mm. There is a 3 mm endometrial cyst.. The right ovary was nonvisualized The left ovary measured 3 x 3.5 x 3 cm. There is a 29 mm left ovarian cyst. No mural nodules or septations are visualized.. There is no ultrasonographic evidence of ovarian torsion. It should be noted that ovarian torsion can be present with normal Doppler ultrasonographic findings. There was no evidence of pathologic free pelvic fluid. IMPRESSION: 1. 29 mm left ovarian cyst. No mural nodules or septations are visualized. 2. Nonvisualization of the right ovary 3. 3 mm endometrial cyst Electronically signed by: Scott Resendez M.D. 05/25/2017 1:45 PM Dictated Date/Time: 05/25/2017 1:41 PM
== END | disposition home or self-care (01) ==
LOC: C.ULTR 12:59
PROVIDERS: ATTEND Nurse Practitioner Adult Health
DX: N94.9 Unspecified condition associated with female genital organs and menstrual cycle (principal); N83.202 Unspecified ovarian cyst, left side; N85.8 Other specified noninflammatory disorders of uterus

== ENCOUNTER → 2017-05-26 | Outpatient (CLI) | payer OTHER ==
[2017-05-26 17:13] LABS: HEMATOCRIT 42.3 % (37-47); HEMOGLOBIN 14.4 g/dL (12.0-16.0); PLATELET COUNT 190 K/uL (130-400); RED CELL DISTRIBUTION WIDTH CV 12.9 % (11.5-14.5); RED CELL DISTRIBUTION WIDTH SD 44.3 fL (36.4-46.3); WHITE BLOOD COUNT 7.16 K/uL (4.8-10.8)
[2017-05-26 17:33] LABS: ALBUMIN 3.8 gm/dl (3.4-5.0); BLOOD UREA NITROGEN 38 mg/dl (7-18); CALCIUM 8.6 mg/dl (8.5-10.1); CARBON DIOXIDE 23 mmol/L (21-32); GLUCOSE 88 mg/dl (70-99); PHOSPHORUS 4.6 mg/dl (2.5-4.9); POTASSIUM 4.1 mmol/L (3.5-5.1); SODIUM 137 mmol/L (136-145)
== END | disposition home or self-care (01) ==
LOC: C.LABPVFM 16:01
PROVIDERS: ATTEND Internal Medicine Nephrology
DX: I10 Essential (primary) hypertension (principal); N18.3 Chronic kidney disease, stage 3 (moderate); E55.9 Vitamin D deficiency, unspecified

== ENCOUNTER → 2017-05-29 | Outpatient (CLI) | payer OTHER | END | disposition home or self-care (01) | LOC: C.MAMM 13:26 | PROVIDERS: ATTEND Physician Assistant | DX: Z12.31 Encounter for screening mammogram for malignant neoplasm of breast (principal) ==

== ENCOUNTER 2017-06-13 21:24 | Emergency (ER) | payer OTHER ==
[~2017-06-13] VITALS: Ht 160 cm; Wt 71.1 kg
[2017-06-13 21:31] VITALS: TEMP 36.9; Ht 160 cm; Wt 71.1 kg
[2017-06-13] MEDS ORDERED: SODIUM CHLORIDE 0.9% 1000ML 1,000 ML IV STA (22:07)
[2017-06-13] MEDS ORDERED: MoRPHine SULFATE 10 MG/ML CARP/VIAL IV STA (22:07)
[2017-06-13] MEDS ORDERED: ONDANSETRON INJ 2 MG/ML 2 ML VIAL IV STA (22:07)
[2017-06-13] MEDS ORDERED: MoRPHine SULFATE 4 MG/ML 1 ML CARP\\VIAL ONE (22:30)
[2017-06-13] MEDS ORDERED: MoRPHine SULFATE 2 MG/ML CARP ONE (22:30)
--- NOTE | 2017-06-13 22:30 | EMERGENCY ROOM VISIT NOTE ---
History First contact with patient: 21:56 Chief Complaint: FLANK PAIN Stated Complaint: SEVERE KIDNEY PAIN History of Present Illness The patient is a 61 year old female who presents to the Emergency Room with complaints of severe right flank pain. The patient reports that she had a sudden onset of right flank pain approximately 6 hours ago. She states the pain has become constant. There is a constant dull pain with intermittent worsening sharp pains. The pain radiates into her right lower abdomen. She rates the discomfort an 8/10. She has associated nausea and no vomiting. She reports a history of stage III kidney disease and has had her right ureter replaced several years ago. She reports that she has been told in the past she has a stone in the left kidney, but has no history of passing any kidney stones. She was seen here recently and initially diagnosed with pancreatitis, but then told she had an ulcer in her stomach. The patient denies vomiting, fevers, changes in bowel movements or urinary symptoms. She also reports history of gastric bypass surgery. Review of Systems A complete 10 point review of systems was reviewed with the patient with pertinent positives and negatives as per history of present illness. All else were negative. Past Medical/Surgical History Medical Problems: (1) Emphysema, unspecified (2) HTN (hypertension) (3) Kidney disease (4) Kidney stone (5) PNA (pneumonia) (6) right ureter replacement Surgical Problems: (1) H/O gastric bypass Family History FH: HTN (hypertension) FH: cancer FH: diabetes mellitus FH: gallbladder disease FH: kidney disease FH: lung disease FH: seizures Heart disease Social History Smoking Status: Never Smoker Alcohol Use: none Drug Use: none Marital Status: Housing Status: lives with significant other Occupation Status: employed Current/Historical Medications Scheduled Biotin (Biotin 5000), 1 TAB PO QAM Calcium Citrate-Vitamin D (Calcium Citrate Chewy Bit 500-500 mg-Unit), 1 TAB PO BID Cefdinir (Omnicef), 300 MG PO Q12H Cholecalciferol (Vitamin D3), 1 TAB PO QAM Citalopram (Citalopram Hydrobromide), 1 TAB PO QAM Cyanocobalamin (Vitamin B-12 1000 Mcg), 1,000 MCG SL BID Estradiol Vaginal (Yuvafem), 1 TAB PV 2XWK Fluconazole (Diflucan), 200 MG PO DAILY Misoprostol (Misoprostol), 100 MCG PO QID Multiple Vitamin (Multivitamin), 1 TAB PO BID Pantoprazole (Pantoprazole Sodium), 40 MG PO BID Scheduled PRN Cetirizine (Zyrtec), 10 MG PO DAILY PRN for ALLERGIES Fluticasone Propionate (Nasal) (Flonase Allergy Relief), 2 SPRAY LIDYA DAILY PRN for CONGESTION Physical Exam Vital Signs Date Time Temp Pulse Resp B/P (MAP) Pulse Ox O2 Delivery O2 Flow Rate FiO2 06/14/17 00:35 57 18 128/77 97 Room Air 06/13/17 23:26 54 18 113/60 96 Room Air 06/13/17 21:31 36.9 70 20 125/77 96 Room Air Physical Exam VITALS: Vitals are noted on the nurse's note and reviewed by myself. Vital signs stable. GENERAL: This is a 61-year-old female, in no acute distress, nondiaphoretic, well-developed well-nourished. SKIN: No rashes. HEART: Regular rate and rhythm without murmurs gallops or rubs. LUNGS: Clear to auscultation bilaterally without wheezes, rales or rhonchi. No retractions or accessory muscle use. ABDOMEN: Positive bowel sounds x 4. There is no abdominal tenderness to palpation. Right-sided mild CVA tenderness. NEURO: Patient was alert and oriented to person place and time. Medical Decision & Procedures ER Provider Diagnostic Interpretation: ABDOMEN AND PELVIS CT WITHOUT CONTRAST CT DOSE: 964.38 mGy.cm HISTORY: right flank pain. nausea. TECHNIQUE: Multiaxial CT images of the abdomen and pelvis were performed without the use of intravenous and oral contrast according to the standard department stone protocol. A dose lowering technique was utilized adhering to the principles of ALARA. COMPARISON STUDY: Abdomen and pelvis CT 05/12/2017. FINDINGS: Calcified granuloma within the right lower lobe. No fractures within the visualized osseous structures. The unenhanced liver, gallbladder, pancreas, and adrenal glands are unremarkable. Calcified granuloma seen within the spleen. No retroperitoneal lymphadenopathy. Left-sided nephrolithiasis, unchanged. No right renal calculi. Mild right perinephric edema. Moderate right hydronephrosis which has progressed. There is abnormal density throughout the distended right ureter. The right ureter inserts ectopically at the bladder dome. This remains unchanged. No ureteral calculi identified. The bladder is unremarkable. Stable 2.9 cm left adnexal cyst. The uterus and right ovary are unremarkable. No significant pelvic free fluid. Suboptimal evaluation for bowel pathology due to the lack of intravenous and oral contrast. No bowel wall thickening identified. Moderate well-formed stool seen throughout the colon. Normal appendix. Prior gastric bypass. A few fluid-filled loops of small bowel seen throughout the abdomen. However, there is no transition point to suggest an obstruction. IMPRESSION: 1. Slight progression of the moderate right hydroureteronephrosis. There is abnormal increased density throughout the distended right ureter. This favors hematuria. However, this could obscure an underlying mass. There is also mild right perinephric edema. Recommend correlation with urinalysis to exclude a pyelonephritis. 2. Stable left-sided nephrolithiasis. No right renal calculi. No ureteral calculi. 3. No change in the 2.9 cm cyst within the left adnexa. 4. Prior gastric bypass. Laboratory Results 06/13/17 22:22 Red Blood Count 4.37, Mean Corpuscular Volume 93.6, Mean Corpuscular Hemoglobin 31.8, Mean Corpuscular Hemoglobin Concent 34.0, Mean Platelet Volume 11.5, Neutrophils (%) (Auto) 51.2, Lymphocytes (%) (Auto) 34.3, Monocytes (%) (Auto) 7.6, Eosinophils (%) (Auto) 5.8, Basophils (%) (Auto) 0.9, Neutrophils # (Auto) 2.82, Lymphocytes # (Auto) 1.89, Monocytes # (Auto) 0.42, Eosinophils # (Auto) 0.32, Basophils # (Auto) 0.05 06/13/17 22:22 Test 06/13/17 22:22 06/13/17 22:27 White Blood Count 5.51 K/uL (4.8-10.8) Red Blood Count 4.37 M/uL (4.2-5.4) Hemoglobin 13.9 g/dL (12.0-16.0) Hematocrit 40.9 % (37-47) Mean Corpuscular Volume 93.6 fL (80-100) Mean Corpuscular Hemoglobin 31.8 pg (25-34) Mean Corpuscular Hemoglobin Concent 34.0 g/dl (32-36) Platelet Count 159 K/uL (130-400) Mean Platelet Volume 11.5 fL (7.4-10.4) Neutrophils (%) (Auto) 51.2 % Lymphocytes (%) (Auto) 34.3 % Monocytes (%) (Auto) 7.6 % Eosinophils (%) (Auto) 5.8 % Basophils (%) (Auto) 0.9 % Neutrophils # (Auto) 2.82 K/uL (1.4-6.5) Lymphocytes # (Auto) 1.89 K/uL (1.2-3.4) Monocytes # (Auto) 0.42 K/uL (0.11-0.59) Eosinophils # (Auto) 0.32 K/uL (0-0.5) Basophils # (Auto) 0.05 K/uL (0-0.2) RDW Standard Deviation 42.1 fL (36.4-46.3) RDW Coefficient of Variation 12.5 % (11.5-14.5) Immature Granulocyte % (Auto) 0.2 % Immature Granulocyte # (Auto) 0.01 K/uL (0.00-0.02) Anion Gap 7.0 mmol/L (3-11) Est Creatinine Clear Calc Drug Dose 42.7 ml/min Estimated GFR () 50.1 Estimated GFR (Non- 43.3 BUN/Creatinine Ratio 24.2 (10-20) Calcium Level 8.9 mg/dl (8.5-10.1) Total Bilirubin 0.3 mg/dl (0.2-1) Aspartate Amino Transf (AST/SGOT) 25 U/L (15-37) Alanine Aminotransferase (ALT/SGPT) 30 U/L (12-78) Alkaline Phosphatase 83 U/L (45-117) Total Protein 7.1 gm/dl (6.4-8.2) Albumin 3.7 gm/dl (3.4-5.0) Globulin 3.4 gm/dl (2.5-4.0) Albumin/Globulin Ratio 1.1 (0.9-2) Urine Color YELLOW Urine Appearance CLEAR (CLEAR) Urine pH 7.0 (4.5-7.5) Urine Specific [place] 1.011 (1.000-1.030) Urine Protein NEG (NEG) Urine Glucose (UA) NEG (NEG) Urine Ketones NEG (NEG) Urine Occult Blood NEG (NEG) Urine Nitrite NEG (NEG) Urine Bilirubin NEG (NEG) Urine Urobilinogen NEG (NEG) Urine Leukocyte Esterase NEG (NEG) Medications Administered Medications (Trade) Dose Ordered Sig/Martin Route Start Time Stop Time Status Last Admin Dose Admin Sodium Chloride 1,000 ml @ 999 mls/hr Q1H1M STAT IV 06/13/17 22:07 06/13/17 23:07 DC 06/13/17 22:42 999 MLS/HR Ondansetron HCl (Zofran Inj) 4 mg NOW STAT IV 06/13/17 22:07 06/13/17 22:08 DC 06/13/17 22:35 4 MG Morphine Sulfate (MoRPHine SULFATE INJ) 2 mg STK-MED ONCE .ROUTE 06/13/17 22:30 06/13/17 22:31 DC 06/13/17 22:35 2 MG Morphine Sulfate (MoRPHine SULFATE INJ) 4 mg STK-MED ONCE .ROUTE 06/13/17 22:30 06/13/17 22:31 DC 06/13/17 22:35 4 MG Fluconazole (Diflucan Tab) 200 mg NOW STAT PO 06/14/17 00:09 06/14/17 00:11 DC 06/14/17 00:34 200 MG Cefdinir (Omnicef Cap) 300 mg ONE STAT PO 06/14/17 00:14 06/14/17 00:15 DC 06/14/17 00:34 300 MG ECG Rate (beats per minute): 55 Rhythm: sinus bradycardia Findings: no acute ischemic change, no ectopy Change: no significant change Medical Decision Differential diagnosis includes kidney stone, pyelonephritis, herpes zoster, bowel obstruction, gastroenteritis, pancreatitis, cholecystitis, among others. The patient is a 61-year-old female who presents today complaining of right flank pain. Labs revealed no leukocytosis. Creatinine is 1.3 which is the patient's baseline. Urinalysis was not suggestive of infection. No hematuria. CT scan of the abdomen and pelvis was performed and showed increased density within the right ureter. The patient does have progression of her hydroureteronephrosis. I did speak with Dr. Ahmadi of urology regarding these findings. He reports that this can sometimes be found in the setting of underlying infection and recommended treating the patient with Diflucan and antibiotics and having her call the office to schedule cystoscopy this week. EKG was performed prior to given these antibiotics to ensure there was no QT prolongation. This was interpreted by myself. Patient will be placed on Omnicef. She was advised to return here for any worsening or new/concerning symptoms. The patient's case was reviewed with Dr. Marino, ED attending physician, who agreed with my assessment and treatment plan. Based on the patient's presentation and work up, I feel the patient is stable for outpatient treatment. The patient was educated to return to the emergency department for any worsening of their current condition or new/concerning symptoms. She will follow up with urology. Medication Reconcilliation Current Medication List: was personally reviewed by me Blood Pressure Screening Patient's blood pressure: Normal blood pressure Impression Primary Impression: Right flank pain Departure Information Dispostion Home / Self-Care Condition GOOD Prescriptions Fluconazole (DIFLUCAN) 200 Mg Tab 200 MG PO DAILY for 7 Days, #7 TAB Prov: Ann Mendoza .CRISTOPHER 06/14/17 Cefdinir (OMNICEF) 300 Mg Cap 300 MG PO Q12H for 7 Days, #14 CAP Prov: Ann Mendoza PA-C 06/14/17 Referrals Anali Mercado ., NILS (PCP) Kei Ahmadi D.O. Patient Instructions My [facility] Additional Instructions Diflucan as prescribed. You were prescribed Omnicef to be taken twice daily as prescribed. This is an antibiotic. All antibiotics have the potential to cause diarrhea. Stop this medication and contact a medical provider if you were to develop any significant adverse side effects including: wheezing, shortness of breath, passing out, vomiting, or a diffuse rash. Always take antibiotics as directed and COMPLETE the ENTIRE course regardless of the improvement of your symptoms. For pain control, you can use the following zyio-eup-nizushw medicines (if >12 yo): - Regular strength (325mg/tab) Tylenol (acetaminophen) 2 tabs every 4-6 hours as needed. Do not exceed 12 tablets in a 24 hour period. Avoid taking more than 4 grams (4000 mg) of Tylenol per day. This includes any other sources of acetaminophen you may take on a regular basis. Drink plenty of fluids. Contact the urology office Thursday to schedule a follow up appointment this week. Return to the emergency department with worsening pain, vomiting, fever or any other new/concerning symptoms.
[2017-06-13 22:51] LABS: BASO % 0.9 %; BASO ABS # 0.05 K/uL (0-0.2); EOS % 5.8 %; EOS ABS # 0.32 K/uL (0-0.5); HEMATOCRIT 40.9 % (37-47); HEMOGLOBIN 13.9 g/dL (12.0-16.0); IG# 0.01 K/uL (0.00-0.02); LYMPH % 34.3 %; LYMPH ABS # 1.89 K/uL (1.2-3.4); MEAN CELL VOLUME 93.6 fL (80-100); MEAN CORPUSCULAR HEMOGLOBIN 31.8 pg (25-34); MEAN PLATELET VOLUME 11.5 fL (7.4-10.4); MONO % 7.6 %; MONO ABS # 0.42 K/uL (0.11-0.59); NEUT % 51.2 %; NEUT ABS # 2.82 K/uL (1.4-6.5); PLATELET COUNT 159 K/uL (130-400); RED CELL DISTRIBUTION WIDTH CV 12.5 % (11.5-14.5); RED CELL DISTRIBUTION WIDTH SD 42.1 fL (36.4-46.3); WHITE BLOOD COUNT 5.51 K/uL (4.8-10.8)
[2017-06-13 23:00] LABS: ALBUMIN 3.7 gm/dl (3.4-5.0); CALCIUM 8.9 mg/dl (8.5-10.1); CREATININE 1.34 mg/dl (0.60-1.20)
[2017-06-13 23:02] LABS: TOTAL PROTEIN 7.1 gm/dl (6.4-8.2)
--- NOTE | 2017-06-13 23:07 | DIAGNOSTIC IMAGING REPORT ---
ABDOMEN AND PELVIS CT WITHOUT CONTRAST CT DOSE: 964.38 mGy.cm HISTORY: right flank pain. nausea. TECHNIQUE: Multiaxial CT images of the abdomen and pelvis were performed without the use of intravenous and oral contrast according to the standard department stone protocol. A dose lowering technique was utilized adhering to the principles of ALARA. COMPARISON STUDY: Abdomen and pelvis CT 05/12/2017. FINDINGS: Calcified granuloma within the right lower lobe. No fractures within the visualized osseous structures. The unenhanced liver, gallbladder, pancreas, and adrenal glands are unremarkable. Calcified granuloma seen within the spleen. No retroperitoneal lymphadenopathy. Left-sided nephrolithiasis, unchanged. No right renal calculi. Mild right perinephric edema. Moderate right hydronephrosis which has progressed. There is abnormal density throughout the distended right ureter. The right ureter inserts ectopically at the bladder dome. This remains unchanged. No ureteral calculi identified. The bladder is unremarkable. Stable 2.9 cm left adnexal cyst. The uterus and right ovary are unremarkable. No significant pelvic free fluid. Suboptimal evaluation for bowel pathology due to the lack of intravenous and oral contrast. No bowel wall thickening identified. Moderate well-formed stool seen throughout the colon. Normal appendix. Prior gastric bypass. A few fluid-filled loops of small bowel seen throughout the abdomen. However, there is no transition point to suggest an obstruction. IMPRESSION: 1. Slight progression of the moderate right hydroureteronephrosis. There is abnormal increased density throughout the distended right ureter. This favors hematuria. However, this could obscure an underlying mass. There is also mild right perinephric edema. Recommend correlation with urinalysis to exclude a pyelonephritis. 2. Stable left-sided nephrolithiasis. No right renal calculi. No ureteral calculi. 3. No change in the 2.9 cm cyst within the left adnexa. 4. Prior gastric bypass. Electronically signed by: Steffen Frederick M.D. 06/13/2017 11:05 PM Dictated Date/Time: 06/13/2017 10:56 PM
[2017-06-14] MEDS ORDERED: FLUCONAZOLE 100 MG TAB PO STA (00:09)
[2017-06-14] MEDS ORDERED: CEFDINIR 300 MG CAP PO STA (00:14)
[2017-06-14] MEDS ORDERED: CIPROFLOXACIN 250 MG TAB PO ONE (00:15)
[2017-06-14] MEDS ORDERED: CEFD300C2 PO (00:33)
[2017-06-14] MEDS ORDERED: FLUC200T PO (00:33)
[2017-06-14 00:35] VITALS: BP 128/77; PULSE 57; O2SAT 97
== END 2017-06-14 01:05 | disposition home or self-care (01) ==
LOC: C.EDB 21:24 → C.EDA 06-14 01:05
DX: R10.9 Unspecified abdominal pain (principal); N18.3 Chronic kidney disease, stage 3 (moderate); N13.30 Unspecified hydronephrosis; I12.9 Hypertensive chronic kidney disease with stage 1 through stage 4 chronic kidney disease, or unspecified chronic kidney disease; Z87.442 Personal history of urinary calculi; Z82.49 Family history of ischemic heart disease and other diseases of the circulatory system; Z83.3 Family history of diabetes mellitus; Z83.79 Family history of other diseases of the digestive system; Z83.6 Family history of other diseases of the respiratory system; Z82.0 Family history of epilepsy and other diseases of the nervous system

== ENCOUNTER → 2017-07-17 | Day surgery (SDC) | payer OTHER ==
[2017-07-06 08:21] VITALS: Ht 160 cm; Wt 67.3 kg
[~2017-07-17] VITALS: Ht 160 cm; Wt 67.3 kg
[~2017-07-17] MED LIST changes: -BIOTCAP2 PO; +SODIUM CHLORIDE 0.9% 500ML 500 ML IV ONE
--- NOTE | 2017-07-17 11:59 | Endo History and Physical ---
History & Physical Date of Service: Jul 17, 2017. Chief Complaint: Gastrojejunal ulcer Referring Physician: Anali Mercado History of Present Illness 61 yo CF who presents for EGD secondary to Gastrojejunal ulcer. Past Surgical History Hx Cardiac Surgery: Yes (HEART CATH, NO STENTS) Hx Internal Defibrillator: No Hx Pacemaker: No Hx Abdominal Surgery: Yes (GASTRIC BYPASS 03/01) Hx Post-Op Nausea and Vomiting: Yes (S/P GASTRIC BYPASS) Hx Cancer Surgery: No Hx Thoracic Surgery: No Hx Orthopedic: Yes (LT RCR) Hx Urinary Tract Surgery: Yes (RT URETER REPLACEMENT 12/25) Family History Colon CA Social History Smoking Status: Never Smoker Hx Substance Use: No Hx Alcohol Use: Yes (one glass wine a month) Allergies Coded Allergies: Gadolinium Derivatives (Verified Allergy, Severe, ANAPHYLAXIS, 07/06/17) IN IV DYE? Iodine (Verified Allergy, Severe, ANAPHYLAXIS, 07/06/17) Amoxicillin (Verified Allergy, Intermediate, SEVERE HIVES, 07/06/17) Aspirin (Verified Allergy, Unknown, NOT TO HAVE DUE TO GASTRIC ULCER/LOW KIDNEY FUNCTION, 07/06/17) Sulfamethoxazole w/Trimethoprim (Verified Allergy, Unknown, RASH, 07/06/17) Current Medications Reported Home Medications Medications Dose Route/Sig Max Daily Dose Days Date Category Pantoprazole Sodium (Pantoprazole) 40 Mg Tab 40 Mg PO BID 90 05/14/17 Rx Misoprostol 100 Mcg Tab 100 Mcg PO QID 90 05/14/17 Rx Yuvafem (Estradiol Vaginal) 10 Mcg Tab 1 Tab PV 2XWK 05/12/17 Reported Flonase Allergy Relief (Fluticasone Propionate (Nasal)) 50 Mcg/Act Spr 2 Victoria LIDYA DAILY PRN 05/12/17 Reported Vitamin B-12 1000 Mcg (Cyanocobalamin) 1,000 Mcg Tab 1,000 Mcg SL BID 07/17/16 Reported Zyrtec (Cetirizine HCl) 10 Mg Tab 10 Mg PO DAILY PRN 07/17/16 Reported Calcium Citrate Chewy Bit 500-500 mg-Unit (Calcium Citrate-Vitamin D) 1 Chw Chw 1 Tab PO BID 07/17/16 Reported Vitamin D3 (Cholecalciferol) 1,000 Unit Tab 1 Tab PO QAM 07/17/16 Reported Multivitamin (Multiple Vitamin) 1 Tab Tab 1 Tab PO BID 07/17/16 Reported Citalopram Hydrobromide (Citalopram) 40 Mg Tab 1 Tab PO QAM 07/17/16 Reported Vital Signs Weight (Kilograms): 67.27 Height (Feet): 5 Height (Inches): 3 Date Time Temp Pulse Resp B/P (MAP) Pulse Ox O2 Delivery O2 Flow Rate FiO2 07/17/17 11:06 36.7 56 16 126/75 (92) 98 Room Air Physical Exam General Appearance: WD/WN, no apparent distress Respiratory/Chest: Auscultation: breath sounds normal Cardiovascular: Heart Auscultation: RRR Abdomen: Bowel Sounds: normal Inspection & Palpation: soft, non-distended, no tenderness, guarding & rebound Assessment and Plan Assessment: 61 yo CF who presents for EGD secondary to Gastrojejunal ulcer. Plan: Proceed with EGD.
--- NOTE | 2017-07-17 12:31 | GI REPORT ---
Procedure Date: 07/17/2017 11:31 AM Procedure: Upper GI endoscopy Indications: Follow-up of acute gastrojejunal ulcer Medicines: Monitored Anesthesia Care Complications: No immediate complications. Estimated Blood Loss: Estimated blood loss: none. Procedure: Pre-Anesthesia Assessment: - Prior to the procedure, a History and Physical was performed, and patient medications and allergies were reviewed. The patient's tolerance of previous anesthesia was also reviewed. The risks and benefits of the procedure and the sedation options and risks were discussed with the patient. All questions were answered, and informed consent was obtained. Prior Anticoagulants: The patient has taken no previous anticoagulant or antiplatelet agents. ASA Grade Assessment: II - A patient with mild systemic disease. After reviewing the risks and benefits, the patient was deemed in satisfactory condition to undergo the procedure. After obtaining informed consent, the endoscope was passed under direct vision. Throughout the procedure, the patient's blood pressure, pulse, and oxygen saturations were monitored continuously. The Scope was introduced through the mouth, and advanced to the second part of duodenum. The upper GI endoscopy was accomplished without difficulty. The patient tolerated the procedure well. Findings: The esophagus was normal. 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 The gastrojejunal anastomosis was characterized by healthy appearing mucosa. This was traversed. The [id number]-lr-wnlbfch limb was characterized by healthy appearing mucosa. The owhvyzhv-nb-dtegbnl limb was not examined as it could not be found. The examined jejunum was normal. Impression: - Normal esophagus. 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 - Normal examined jejunum. - No specimens collected. Recommendation: - Resume previous diet. - Continue present medications. - Return to primary care physician as previously scheduled. Stalin Bernard DO 07/17/2017 12:31:40 PM This report has been signed electronically. Note Initiated On: 07/17/2017 11:31 AM I attest to the content of the Intraoperative Record and orders documented therein, exceptions below
[2017-07-17 12:53] VITALS: BP 134/83; PULSE 50; O2SAT 99
--- NOTE | 2017-07-17 12:58 | Anesthesiology Progress Note ---
Anesthesia Post Op Note Date & Time Jul 17, 2017 at 12:58 Vital Signs Pain Intensity: 0 Vital Signs Past 12 Hours Date Time Temp Pulse Resp B/P (MAP) Pulse Ox O2 Delivery O2 Flow Rate FiO2 07/17/17 12:53 50 16 134/83 (100) 99 Room Air 07/17/17 12:38 56 16 117/84 (95) 95 Room Air 07/17/17 12:23 56 14 98/58 (71) 95 Room Air 07/17/17 11:06 36.7 56 16 126/75 (92) 98 Room Air Notes Mental Status: alert / awake / arousable, participated in evaluation Pt Amnestic to Procedure: Yes Nausea / Vomiting: adequately controlled Pain: adequately controlled Airway Patency, RR, SpO2: stable & adequate BP & HR: stable & adequate Hydration State: stable & adequate Anesthetic Complications: no major complications apparent
--- NOTE | 2017-07-17 13:02 | Discharge Instructions ---
Endoscopy Patient Instructions Date / Procedure(s) Performed Jul 17, 2017. EGD Allergy Information Coded Allergies: Gadolinium Derivatives (Verified Allergy, Severe, ANAPHYLAXIS, 07/06/17) IN IV DYE? Iodine (Verified Allergy, Severe, ANAPHYLAXIS, 07/06/17) Amoxicillin (Verified Allergy, Intermediate, SEVERE HIVES, 07/06/17) Aspirin (Verified Allergy, Unknown, NOT TO HAVE DUE TO GASTRIC ULCER/LOW KIDNEY FUNCTION, 07/06/17) Sulfamethoxazole w/Trimethoprim (Verified Allergy, Unknown, RASH, 07/06/17) Discharge Date / Findings Jul 17, 2017. Normal Post Gastric bypass anatomy with complete healing of ulcer Medication Instructions OK to resume all medications today as prescribed Reported Home Medications Medications Dose Route/Sig Max Daily Dose Days Date Category Pantoprazole Sodium (Pantoprazole) 40 Mg Tab 40 Mg PO BID 90 05/14/17 Rx Misoprostol 100 Mcg Tab 100 Mcg PO QID 90 05/14/17 Rx Yuvafem (Estradiol Vaginal) 10 Mcg Tab 1 Tab PV 2XWK 05/12/17 Reported Flonase Allergy Relief (Fluticasone Propionate (Nasal)) 50 Mcg/Act Spr 2 [place] LIDYA DAILY PRN 05/12/17 Reported Vitamin B-12 1000 Mcg (Cyanocobalamin) 1,000 Mcg Tab 1,000 Mcg SL BID 07/17/16 Reported Zyrtec (Cetirizine HCl) 10 Mg Tab 10 Mg PO DAILY PRN 07/17/16 Reported Calcium Citrate Chewy Bit 500-500 mg-Unit (Calcium Citrate-Vitamin D) 1 Chw Chw 1 Tab PO BID 07/17/16 Reported Vitamin D3 (Cholecalciferol) 1,000 Unit Tab 1 Tab PO QAM 07/17/16 Reported Multivitamin (Multiple Vitamin) 1 Tab Tab 1 Tab PO BID 07/17/16 Reported Citalopram Hydrobromide (Citalopram) 40 Mg Tab 1 Tab PO QAM 07/17/16 Reported Provider Instructions Activity Restrictions - No exercising or heavy lifting for 24 hours. - Do not drink alcohol the day of the procedure. - Do not drive a car or operate machinery until the day after the procedure. - Do not make any important decisions or sign important papers in 24 hours after the procedure. Following Day: - Return to full activity which may include returning to work/school. Diet Start your diet with liquids and light foods (jello soup, juice, toast). Then eat your usual diet if not nauseated. Treatment For Common After Affects For mild abdominal pain, bloating, or excessive gas: - Rest - Eat lightly - Lie on right side Follow-Up Information Follow-up with Anali Mercado as scheduled Anesthesia Information What You Should Know You have had a procedure that required some medicine to reduce anxiety and discomfort. This treatment is called moderate sedation. After receiving the treatment, you may be sleepy, but you will be able to breathe on your own. The effects of the treatment may last for several hours. Follow these instructions along with Activity/Diet recommendations noted above: * Do NOT do anything where dizziness or clumsiness would be dangerous. * Rest quietly at home today, then you can be up and about tomorrow. * Have a responsible person stay with you the rest of today. * You may have had an I.V. today. If so, you may take the dressing off later today. Recommendations Call your doctor if: * Trouble breathing * Continuous vomiting for more than 24 hours * Temperature above 101 degrees * Severe abdominal pain or bloating * Pain not relieved by pain medicine ordered * There is increased drainage or redness from any incision * A large amount of rectal bleeding greater than 2-3 tablespoons. (If you had a polyp/s removed or have hemorrhoids, a small amount of blood - from the rectum is to be expected.) * You have any unanswered questions or concerns. IN THE EVENT OF A SERIOUS EMERGENCY, GO TO THE NEAREST EMERGENCY ROOM Your discharge instructions were prepared by provider Stalin Bernard. Patient Instructions Signature Page Gavi Colbert Patient (or Guardian) Signature/Date: I have read and understand the instructions given to me by my caregivers. Caregiver/RN/Doctor Signature/Date: The above-named patient and/or guardian has received patient instructions on this date. + Original Patient Signature Page (only) stays with chart. Please make copy for patient.
== END | disposition home or self-care (01) ==
LOC: C.GI 10:47
PROVIDERS: ATTEND Internal Medicine
DX: K28.9 Gastrojejunal ulcer, unspecified as acute or chronic, without hemorrhage or perforation (principal); Z98.84 Bariatric surgery status; Z80.0 Family history of malignant neoplasm of digestive organs; Z91.041 Radiographic dye allergy status; Z88.1 Allergy status to other antibiotic agents; Z88.6 Allergy status to analgesic agent; Z88.2 Allergy status to sulfonamides; Z88.8 Allergy status to other drugs, medicaments and biological substances

== ENCOUNTER → 2017-09-09 | Outpatient (CLI) | payer OTHER ==
[~2017-09-09] MED LIST changes: -SODIUM CHLORIDE 0.9% 500ML 500 ML IV ONE
[2017-09-09 13:03] LABS: HEMATOCRIT 43.8 % (37-47); HEMOGLOBIN 14.9 g/dL (12.0-16.0); MEAN CELL VOLUME 94.6 fL (80-100); MEAN CORPUSCULAR HEMOGLOBIN 32.2 pg (25-34); MEAN PLATELET VOLUME 11.7 fL (7.4-10.4); PLATELET COUNT 167 K/uL (130-400); RED CELL DISTRIBUTION WIDTH CV 13.4 % (11.5-14.5); RED CELL DISTRIBUTION WIDTH SD 46.1 fL (36.4-46.3); WHITE BLOOD COUNT 4.66 K/uL (4.8-10.8)
[2017-09-09 13:37] LABS: ALBUMIN 3.9 gm/dl (3.4-5.0); BLOOD UREA NITROGEN 24 mg/dl (7-18); CALCIUM 9.1 mg/dl (8.5-10.1); CARBON DIOXIDE 25 mmol/L (21-32); CREATININE 1.24 mg/dl (0.60-1.20); GLUCOSE 86 mg/dl (70-99); POTASSIUM 4.2 mmol/L (3.5-5.1); SODIUM 140 mmol/L (136-145)
[2017-09-09 13:38] LABS: PHOSPHORUS 3.5 mg/dl (2.5-4.9)
== END | disposition home or self-care (01) ==
LOC: C.LABPVFM 08:05
PROVIDERS: ATTEND Internal Medicine Nephrology
DX: I10 Essential (primary) hypertension (principal); N18.3 Chronic kidney disease, stage 3 (moderate); E55.9 Vitamin D deficiency, unspecified; N13.30 Unspecified hydronephrosis

== ENCOUNTER 2018-12-06 00:31 | Inpatient (IN) ==
[2018-12-06] MEDS ORDERED: ONDANSETRON INJ 2 MG/ML 2 ML VIAL IV STA (01:06)
[2018-12-06] MEDS ORDERED: SODIUM CHLORIDE 0.9% 1000ML 1,000 ML IV ONE ×2 (01:06→05:18)
[2018-12-06 01:40] LABS: Basophils # (auto) 0.02 K/uL (0-0.2); Basophils % (auto) 0.2 %; Eosinophils # (auto) 0.07 K/uL (0-0.5); Eosinophils % (auto) 0.7 %; Hematocrit (blood only) 40.9 % (37-47); Immature Granulocytes # (auto) 0.02 K/uL (0.00-0.02); Immature Granulocytes % (auto) 0.2 %; Lymphocytes # (auto) 0.47 K/uL (1.2-3.4); Lymphocytes % (auto) 4.8 %; Mean Corpuscular Hgb Conc 34.2 g/dL (32-36); Mean Corpuscular Volume 94.5 fL (80-100); Mean Platelet Volume 11.1 fL (7.4-10.4); Monocytes # (auto) 0.78 K/uL (0.11-0.59); Neutrophils # (auto) 8.35 K/uL (1.4-6.5); Neutrophils % (auto) 86.1 %; Platelet Count 129 K/uL (130-400); RDW Coefficient of Variation 12.7 % (11.5-14.5); RDW Standard Deviation 43.8 fL (36.4-46.3); Red Blood Count 4.33 M/uL (4.2-5.4); White Blood Count 9.71 K/uL (4.8-10.8)
[2018-12-06 01:51] LABS: Partial Thromboplastin Ratio 0.9; Partial Thromboplastin Time 24.5 Seconds (21.0-31.0); Prothrombin Time 10.5 Seconds (9.0-12.0)
[2018-12-06 02:20] LABS: Alanine Aminotransferase 31 U/L (12-78); Albumin Globulin Ratio 1.1 (0.9-2); Albumin Level 3.8 gm/dl (3.4-5.0); Alkaline Phosphatase 76 U/L (45-117); BUN Creatinine Ratio 16.8 (10-20); Bilirubin,Total 0.6 mg/dl (0.2-1); Blood Urea Nitrogen 24 mg/dl (7-18); Calcium 8.3 mg/dl (8.5-10.1); Carbon Dioxide 21 mmol/L (21-32); Chloride 109 mmol/L (98-107); Creatinine Clr Calc Pharmacy 40.1 ml/min; Est GFR (African American) 46.4; Globulin 3.4 gm/dl (2.5-4.0); Glucose 130 mg/dl (70-99); Total Protein 7.2 gm/dl (6.4-8.2); Troponin I < 0.015 ng/ml (0-0.045)
[2018-12-06 02:24] LABS: Appearance Urine Turbid (Clear); Bacteria Urine Automated 4+ (Negative); Bilirubin Urine Negative (Negative); Blood Urine 3+ (Negative); Color Urine Yellow; Glucose Urine UA Negative (Negative); Ketones Urine Negative (Negative); Leukocyte Esterase Urine 3+ (Negative); Nitrite Urine Positive (Negative); Protein Urine 3+ (Negative); RBC Urine Automated >30 /hpf (0-4); Specific Gravity Urine 1.015 (1.000-1.030); Urobilinogen Urine Negative (Negative); WBC Urine Automated >30 /hpf (0-5); pH Urine 6.5 (4.5-7.5)
[2018-12-06 02:24] LABS: Potassium 3.7 mmol/L (3.5-5.1); Sodium 141 mmol/L (136-145)
[2018-12-06 02:27] LABS: Aspartate Aminotransferase 22 U/L (15-37)
[2018-12-06] MEDS ORDERED: cefTRIAXone SODIUM 2,000 MG in DEXTROSE 5% 50 ML IV STA (02:36)
--- NOTE | 2018-12-06 03:51 | Emergency Department Note ---
History of Present Illness General Chief complaint: Urinary Symptoms Stated complaint: BACK PAIN,CHILLS,BURNING WHEN URINATE History of Present Illness This 62-year-old presents to the ER complaining of right flank pain and urinary symptoms Location: Right flank Quality: Uncomfortable Severity: Moderate Duration: Past few days Timing: Started a few days ago Context: Symptoms got worse and patient came in Modifying factors: better with rest; worse with activity Patient had ureteral surgery in the past. She has seen Dr. Jarrett. She complains of fever and chills. Patient denies chest pain, dyspnea, cough, congestion, vaginal problems. Patient states she has a known ovarian cyst. No recent antibiotics. No anaphylactic reaction to penicillins. No fever. Home Medications Home Medications Medication Instructions Recorded Confirmed Type citalopram 40 mg PO DAILY 12/06/18 12/06/18 History pantoprazole 40 mg PO BID 12/06/18 12/06/18 History Allergies Allergy/AdvReac Type Severity Reaction Status Date / Time Gadolinium-Containing Allergy Severe ANAPHYLAXIS Verified 12/06/18 01:35 Contrast Medi iodine Allergy Severe ANAPHYLAXIS Verified 12/06/18 01:35 amoxicillin Allergy Intermediate SEVERE Verified 12/06/18 01:35 HIVES aspirin Allergy Unknown NOT TO Verified 12/06/18 01:35 HAVE DUE TO GASTRIC ULCER/LOW KIDNEY FUNCTION Bactrim Allergy Unknown RASH Verified 07/06/17 08:17 sulfamethoxazole Allergy Unknown RASH Verified 12/06/18 01:35 trimethoprim Allergy Unknown RASH Verified 12/06/18 01:35 Past Med/Surg History Medical History High blood pressure Surgical History History of gastric bypass Social History Feels Safe at Home: Yes Smoking Status: Former smoker Review of Systems All systems reviewed & are unremarkable except as noted in HPI & below Physical Exam Vital Signs Vital Signs - 24 hr 12/06/18 00:48 12/06/18 01:04 12/06/18 01:05 Temperature 37.1 C Temperature Source Oral Sepsis Recent Fever Within 48 Hours No Sepsis New/Unexplained Change in Mental Status No Sepsis Action Taken by Nursing No Action Required Pulse Rate 77 66 Pulse Rate [Apical] 74 Pulse Rate from SpO2 Sensor Pulse Rhythm Regular Respiratory Rate 19 18 14 Respiratory Effort / Characteristics Non-Labored Spontaneous Respiratory Depth Normal Normal Respiratory Pattern Regular Blood Pressure 77/51 L 98/51 L Blood Pressure [Left Arm] 98/51 L Blood Pressure Mean 59 66 Blood Pressure Mean [Left Arm] 66 Blood Pressure Position Sitting Pulse Oximetry 96 97 Oxygen Delivery Method Room Air Room Air 12/06/18 01:08 12/06/18 01:15 12/06/18 01:16 Temperature Temperature Source Sepsis Recent Fever Within 48 Hours Sepsis New/Unexplained Change in Mental Status Sepsis Action Taken by Nursing Pulse Rate 67 67 66 Pulse Rate [Apical] Pulse Rate from SpO2 Sensor 66 Pulse Rhythm Respiratory Rate 18 20 18 Respiratory Effort / Characteristics Respiratory Depth Respiratory Pattern Blood Pressure 94/54 L Blood Pressure [Left Arm] Blood Pressure Mean 67 Blood Pressure Mean [Left Arm] Blood Pressure Position Pulse Oximetry 93 Oxygen Delivery Method Room Air 12/06/18 01:30 12/06/18 01:31 12/06/18 01:45 Temperature Temperature Source Sepsis Recent Fever Within 48 Hours Sepsis New/Unexplained Change in Mental Status Sepsis Action Taken by Nursing Pulse Rate 60 59 L 63 Pulse Rate [Apical] Pulse Rate from SpO2 Sensor 64 Pulse Rhythm Respiratory Rate 20 19 18 Respiratory Effort / Characteristics Respiratory Depth Respiratory Pattern Blood Pressure 109/53 L Blood Pressure [Left Arm] Blood Pressure Mean 71 Blood Pressure Mean [Left Arm] Blood Pressure Position Pulse Oximetry 94 Oxygen Delivery Method Room Air 12/06/18 02:16 12/06/18 02:31 12/06/18 02:46 Temperature Temperature Source Sepsis Recent Fever Within 48 Hours Sepsis New/Unexplained Change in Mental Status Sepsis Action Taken by Nursing Pulse Rate 69 65 65 Pulse Rate [Apical] Pulse Rate from SpO2 Sensor 68 65 65 Pulse Rhythm Respiratory Rate 16 19 13 Respiratory Effort / Characteristics Respiratory Depth Respiratory Pattern Blood Pressure 108/57 L 99/53 L 118/61 Blood Pressure [Left Arm] Blood Pressure Mean 74 68 80 Blood Pressure Mean [Left Arm] Blood Pressure Position Pulse Oximetry 97 95 95 Oxygen Delivery Method 12/06/18 04:14 Temperature Temperature Source Sepsis Recent Fever Within 48 Hours Sepsis New/Unexplained Change in Mental Status Sepsis Action Taken by Nursing Pulse Rate Pulse Rate [Apical] 60 Pulse Rate from SpO2 Sensor Pulse Rhythm Respiratory Rate 18 Respiratory Effort / Characteristics Respiratory Depth Respiratory Pattern Blood Pressure Blood Pressure [Left Arm] 108/67 Blood Pressure Mean Blood Pressure Mean [Left Arm] 80 Blood Pressure Position Pulse Oximetry 95 Oxygen Delivery Method Room Air VITALS: Vitals are noted on the nurse's note and reviewed by myself. Vital signs repeat blood pressure is improved from triage. GENERAL: Pleasant female, in no acute distress, nondiaphoretic, well-developed well-nourished. SKIN: The skin was without rashes, erythema, edema, or bruising. There is no tenting of the skin. Capillary reflex less than 2 seconds. HEAD: Normocephalic atraumatic. EARS: External auditory canals clear, tympanic membranes pearly [place] without erythema or effusion bilaterally. EYES: Pupils equal round and reactive to light and accommodation. Conjunctivae without injection, sclerae without icterus. Extraocular movements intact. NOSE: Patent, turbinates without inflammation or discharge. MOUTH: Mucous membranes moist. Pharynx without erythema or exudate. Uvula midline. Airway patent. Tongue does not deviate. NECK: Supple without nuchal rigidity. No lymphadenopathy. No thyromegaly. Cervical spine is nontender. No JVD. HEART: Regular rate and rhythm without murmurs gallops or rubs. LUNGS: Clear to auscultation bilaterally without wheezes, rales or rhonchi. No retractions or accessory muscle use. ABDOMEN: Positive bowel sounds x 4. Normal tympanic percussion. Soft, nontender, without masses or organomegaly. Zepeda sign negative. No guarding or rebound tenderness. Right CVA tenderness MUSCULOSKELETAL: No muscle atrophy, erythema, or edema noted. NEURO: Patient was alert and oriented to person place and time. Normal sensation to light and sharp touch. No focal neurological deficits. Course Administered Medications Sodium Chloride (Nss 1000ml) 1,000 mls @ 999 mls/hr IV .Q1H1M ONE Stop: 12/06/18 06:18 Last Admin: 12/06/18 05:24 Dose: 999 mls/hr Documented by: [id number] Discontinued Medications Sodium Chloride (Nss 1000ml) 1,000 mls @ 999 mls/hr IV .Q1H1M ONE Stop: 12/06/18 02:06 Last Infusion: 12/06/18 02:28 Dose: 0 mls/hr Documented by: [id number] Admin: 12/06/18 01:26 Dose: 999 mls/hr Documented by: [id number] Ceftriaxone Sodium 2,000 mg/ (Dextrose) 70 mls @ 100 mls/hr IV NOW STA Stop: 12/06/18 03:17 Last Infusion: 12/06/18 03:44 Dose: 0 mls/hr Documented by: [id number] Admin: 12/06/18 02:59 Dose: 100 mls/hr Documented by: [id number] Ondansetron HCl (Zofran) 4 mg IV NOW STA Stop: 12/06/18 01:07 Last Admin: 12/06/18 01:26 Dose: 4 mg Documented by: [id number] Medical Decision Making Medical Records Attestation: I reviewed the patient's medical records. Home Medications Current Medication List: was personally reviewed by me Laboratory Data Attestation: I reviewed the patient's lab results. Result diagrams: 12/06/18 01:27 12/06/18 01:27 Lab Results 12/06/18 12/06/18 12/06/18 Range/Units 01:27 01:27 01:27 WBC 9.71 (4.8-10.8) K/uL RBC 4.33 (4.2-5.4) M/uL Hgb 14.0 (12.0-16.0) g/dL Hct 40.9 (37-47) % MCV 94.5 (80-100) fL MCH 32.3 (25-34) pg MCHC 34.2 (32-36) g/dL RDW Std Deviation 43.8 (36.4-46.3) fL RDW Coeff of Efren 12.7 (11.5-14.5) % Plt Count 129 L (130-400) K/uL MPV 11.1 H (7.4-10.4) fL Immature Gran % (Auto) 0.2 % Neut % (Auto) 86.1 % Lymph % (Auto) 4.8 % [place] % (Auto) 8.0 % Eos % (Auto) 0.7 % Baso % (Auto) 0.2 % Immature Gran # (Auto) 0.02 (0.00-0.02) K/uL Neut # (Auto) 8.35 H (1.4-6.5) K/uL Lymph # (Auto) 0.47 L (1.2-3.4) K/uL [place] # (Auto) 0.78 H (0.11-0.59) K/uL Eos # (Auto) 0.07 (0-0.5) K/uL Baso # (Auto) 0.02 (0-0.2) K/uL PT 10.5 (9.0-12.0) Seconds INR 1.0 (0.9-1.1) APTT 24.5 (21.0-31.0) Seconds PTT Ratio 0.9 Sodium 141 (136-145) mmol/L Potassium 3.7 (3.5-5.1) mmol/L Chloride 109 H (98-107) mmol/L Carbon Dioxide 21 (21-32) mmol/L Anion Gap 11.0 (3-11) BUN 24 H (7-18) mg/dl Creatinine 1.42 H (0.6-1.2) mg/dl Est Cr Clr Drug Dosing 40.1 ml/min Est GFR ( Amer) 46.4 Est GFR (Non-Af Amer) 40.0 BUN/Creatinine Ratio 16.8 (10-20) Glucose 130 H (70-99) mg/dl Calcium 8.3 L (8.5-10.1) mg/dl Total Bilirubin 0.6 (0.2-1) mg/dl AST 22 (15-37) U/L ALT 31 (12-78) U/L Alkaline Phosphatase 76 (45-117) U/L Troponin I < 0.015 (0-0.045) ng/ml Total Protein 7.2 (6.4-8.2) gm/dl Albumin 3.8 (3.4-5.0) gm/dl Globulin 3.4 (2.5-4.0) gm/dl Albumin/Globulin Ratio 1.1 (0.9-2) Urine Color Urine Appearance (Clear) Urine pH (4.5-7.5) Ur Specific [place] (1.000-1.030) Urine Protein (Negative) Urine Glucose (UA) (Negative) Urine Ketones (Negative) Urine Blood (Negative) Urine Nitrite (Negative) Urine Bilirubin (Negative) Urine Urobilinogen (Negative) Ur Leukocyte Esterase (Negative) Urine WBC (Auto) (0-5) /hpf Urine RBC (Auto) (0-4) /hpf U Hyaline Cast (Auto) (0-5) /lpf U Epithel Cells (Auto) (0-5) /lpf Urine Bacteria (Auto) (Negative) Urine Yeast 12/06/18 Range/Units 02:15 WBC (4.8-10.8) K/uL RBC (4.2-5.4) M/uL Hgb (12.0-16.0) g/dL Hct (37-47) % MCV (80-100) fL MCH (25-34) pg MCHC (32-36) g/dL RDW Std Deviation (36.4-46.3) fL RDW Coeff of Efren (11.5-14.5) % Plt Count (130-400) K/uL MPV (7.4-10.4) fL Immature Gran % (Auto) % Neut % (Auto) % Lymph % (Auto) % [place] % (Auto) % Eos % (Auto) % Baso % (Auto) % Immature Gran # (Auto) (0.00-0.02) K/uL Neut # (Auto) (1.4-6.5) K/uL Lymph # (Auto) (1.2-3.4) K/uL [place] # (Auto) (0.11-0.59) K/uL Eos # (Auto) (0-0.5) K/uL Baso # (Auto) (0-0.2) K/uL PT (9.0-12.0) Seconds INR (0.9-1.1) APTT (21.0-31.0) Seconds PTT Ratio Sodium (136-145) mmol/L Potassium (3.5-5.1) mmol/L Chloride (98-107) mmol/L Carbon Dioxide (21-32) mmol/L Anion Gap (3-11) BUN (7-18) mg/dl Creatinine (0.6-1.2) mg/dl Est Cr Clr Drug Dosing ml/min Est GFR ( Amer) Est GFR (Non-Af Amer) BUN/Creatinine Ratio (10-20) Glucose (70-99) mg/dl Calcium (8.5-10.1) mg/dl Total Bilirubin (0.2-1) mg/dl AST (15-37) U/L ALT (12-78) U/L Alkaline Phosphatase (45-117) U/L Troponin I (0-0.045) ng/ml Total Protein (6.4-8.2) gm/dl Albumin (3.4-5.0) gm/dl Globulin (2.5-4.0) gm/dl Albumin/Globulin Ratio (0.9-2) Urine Color Yellow Urine Appearance Turbid A (Clear) Urine pH 6.5 (4.5-7.5) Ur Specific [place] 1.015 (1.000-1.030) Urine Protein 3+ H (Negative) Urine Glucose (UA) Negative (Negative) Urine Ketones Negative (Negative) Urine Blood 3+ H (Negative) Urine Nitrite Positive A (Negative) Urine Bilirubin Negative (Negative) Urine Urobilinogen Negative (Negative) Ur Leukocyte Esterase 3+ H (Negative) Urine WBC (Auto) >30 H (0-5) /hpf Urine RBC (Auto) >30 H (0-4) /hpf U Hyaline Cast (Auto) 1-5 (0-5) /lpf U Epithel Cells (Auto) 5-10 H (0-5) /lpf Urine Bacteria (Auto) 4+ H (Negative) Urine Yeast Not Reportable Imaging Data Attestation: I personally reviewed and interpreted this imaging study as follows: MDM Narrative Prior records/ancillary studies reviewed. Triage Nursing notes reviewed. Additional history obtained from family. The patient's history was concerning for urinary symptoms and flank pain Differential diagnosis: Etiologies such as appendicitis, diverticulitis, PUD, biliary pathology, UTI, pancreatitis, obstruction, mesenteric ischemia, aortic pathology, infections, inflammatory bowel disease, renal colic, as well as others were entertained. Physical examination findings: As above. ER treatment provided: IV fluids, Rocephin On reassessment the patient felt better. Diagnostics interpreted by me: The labs revealed stable creatinine per chart review. Urine concerning for infection and sent for culture. No leukocytosis. Lactic acid was 1.56. The tech accidentally documented the lactic on the wrong chart. My charge nurse, Saulo, was made aware of this. Imaging studies: CT ABDOMEN & PELVIS Without Contrast: Comparison May 2017 There is asymmetric infiltration around the right kidney, renal pelvis and ureter with suspected uroepithelial thickening. Ectopic exertion of the right ureter into the bladder, as on prior. Suspect decreased right caliectasis but persistent pelviectasis along with distention of right ureter fairly similar to previous. Density seen in right ureter on prior either resolved or decreased. Previous report gives history of ileal segment functioning as right ureter. This likely explains some of the appearance of the right ureter though would still correlate for pyelonephritis/infection. No right-sided urinary tract calculi. Nonobstructive left renal stones. Left adnexal cyst measuring about 3.4 cm maximum axial dimension, larger than previous. No bowel obstruction. Portions of bowel underdistended limiting evaluation for mural thickening. No perienteric inflammatory changes. No appendicitis. Postop changes with gastric bypass. Diverticulosis without diverticulitis, old granulomatous disease and other nonemergent/incidentals. Radiologist: Marbin Kingsley M.D. US PELVIC/ENDOVAG: Heterogenous uterus with suspected fibroids. Endometrial thickness 7 mm. Cystic foci in the endometrium. Complex cyst left ovary with septation measuring 4.2 cm in maximum dimension. Suboptimal visualization of right ovary secondary to bowel. Right ovary grossly unremarkable appearance. Blood flow seen to the bilateral ovaries. Radiologist: Marbin Kingsley M.D. Consultation: A consultation was placed with Dr Viera. The case was discussed and diagnostics were reviewed. The patient was evaluated in the ER for further treatment. Exam and history seem consistent with pyelonephritis. Patient became more sick while in the ER. Medicine was consulted. She will start antibiotics. Lactic acid was document of the wrong chart. It was 1.56. By the evaluation outlined above emergent etiologies such as appendicitis, diverticulitis, PUD, biliary pathology, pancreatitis, obstruction, mesenteric ischemia, aortic pathology, inflammatory bowel disease, renal colic, as well as others were deemed relatively unlikely. The pt informed about the findings as listed above. All questions were answered and pleased with the treatment. Case reviewed with my attending The chart was completed utilizing [employer] voice recognition software. Gr ammatical errors, random word insertions, pronoun errors, and incomplete sentences are an occassional consequence of this system due to software limitations, ambient noise, and hardware issues. Any formal questions or concerns about the content, text, or information contained within the body of this dictation should be directly addressed to the physician assistant mechanic for clarification. Impression & Plan Acute pyelonephritis Discharge Plan Visit Data Chief Complaint: Urinary Symptoms Stated Complaint: BACK PAIN,CHILLS,BURNING WHEN URINATE ED Provider: Agatha Stearns ED Midlevel Provider: Alanna Benjamin Discharge Problem: Acute pyelonephritis Patient Disposition: Being Evaluated by Hospitalist Condition: Fair Forms Stand Alone Forms: My [facility] [place] Prescriptions Prescriptions: No Action citalopram 40 mg Tablet 40 mg PO DAILY RF: 0 pantoprazole 40 mg Tablet,Delayed Release (Dr/Ec) 40 mg PO BID RF: 0 Referrals Referrals: Anali Bennett CRNP [Primary Care Provider] -
[2018-12-06] MEDS ORDERED: ACETAMINOPHEN 1,000 MG/100 ML VIAL IV STA (04:57)
--- NOTE | 2018-12-06 05:27 | History & Physical Report ---
Date of Service December 06, 2018 Assessment & Plan (1) Acute pyelonephritis: 62 y/o F Hx CKD III, GERD, R ureteral reconstruction surgery. Presents with R flank and lower back pain, nausea and rigors. The pt denies vomiting or dysuria. Initial labs are notable for mild acute on chronic renal impairment and are otherwise unremarkable including a normal lactic. A CT demonstrates pyelonephritis. The pt was hypotensive on arrival to the ER, however, her pressure rebounded and stabilized with a fluid bolus. 1) Pyelonephritis - may be related to her anatomy. Placed on Ceftriaxone pending culture results. IVF provided - repeat lactic pending. 2) CKD III - acute on chronic injury - IVF - trend BMP 3) GERD - cont Pantoprazole Full code - Heparin prophylaxis Total time for this admit including review of labs, imaging, records - discussion with pt and ER attending - 38 min Present on Admission?: Yes History of Present Illness Chief Complaint: R flank pain, rigors Primary Care Provider: NILS Chambers 62 y/o F Hx CKD III, GERD, R ureteral reconstruction surgery. Presents with R flank and lower back pain, nausea and rigors. The pt denies vomiting or dysuria. Initial labs are notable for mild acute on chronic renal impairment and are otherwise unremarkable including a normal lactic. A CT demonstrates pyelonephritis. The pt was hypotensive on arrival to the ER, however, her pressure rebounded and stabilized with a fluid bolus. PMH: 1) Formerly obese 2) R ureteral obstruction requiring reconstructive surgery 3) CKD III 4) GERD 5) Depression Surgical: 1) Gastric bypass 2014 2) R ureteral reconstruction Social: Does not smoke Drinks occasionally Family: Mother with bladder CA Father after falling down stairs Allergies Allergy/AdvReac Type Severity Reaction Status Date / Time Gadolinium-Containing Allergy Severe ANAPHYLAXIS Verified 12/06/18 01:35 Contrast Medi iodine Allergy Severe ANAPHYLAXIS Verified 12/06/18 01:35 amoxicillin Allergy Intermediate SEVERE Verified 12/06/18 01:35 HIVES aspirin Allergy Unknown NOT TO Verified 12/06/18 01:35 HAVE DUE TO GASTRIC ULCER/LOW KIDNEY FUNCTION Bactrim Allergy Unknown RASH Verified 07/06/17 08:17 sulfamethoxazole Allergy Unknown RASH Verified 12/06/18 01:35 trimethoprim Allergy Unknown RASH Verified 12/06/18 01:35 Home Medications Home Medications Medication Instructions Recorded Confirmed Type citalopram 40 mg PO DAILY 12/06/18 12/06/18 History pantoprazole 40 mg PO BID 12/06/18 12/06/18 History Past Med/Surg History Medical History High blood pressure Surgical History History of gastric bypass Social History Feels Safe at Home: Yes Smoking Status: Former smoker Review of Systems Review of Systems: Gen: Reports rigors ENT: Denies congestion, throat pain, hearing loss Eyes: Denies acute visual changes CV: Denies CP, palpitations Pulmonary: Denies SOB, cough, wheezing GI: Denies N/V, diarrhea, constipation : Flank pain on R - denies dysuria but states she has not urinated much over the past 1-2 days Neuro: Denies acute or unilateral weakness, acute gait impairment, headache or acute visual changes Musculoskeletal: Denies joint pain, inflammation Endocrine: Denies polydipsia, polyuria Skin: Denies acute rashes or ulcers Physical Exam Physical Exam: General: AAO x 3, no distress ENT: No erythema or exudates, no thrush Eyes: ANTHONY, EOMI Head and neck: Normocephalic, atraumatic, No JVD, neck is supple. Chest/heart: Nontender, S1,2, RRR, no murmurs, no gallops Lungs: CTAB, no wheezing or crackles Abdomen: Nontender, nondistended, BS+ Neuro: AAO x 3, speech is clear, no unilateral weakness or loss of sensation, coordination intact Musculoskeletal: Tenderness RL back Skin: No acute rashes or ulcers Extremities: No clubbing, cyanosis, edema Results & Data Vital Signs (Past 12 Hours) Vital Signs Temp Pulse Pulse Resp BP BP Pulse Ox 12/06/18 04:14 60 18 108/67 95 12/06/18 02:46 65 13 118/61 95 12/06/18 02:31 65 19 99/53 L 95 12/06/18 02:16 69 16 108/57 L 97 12/06/18 01:45 63 18 94 12/06/18 01:31 59 L 19 109/53 L 12/06/18 01:30 60 20 12/06/18 01:16 66 18 94/54 L 93 12/06/18 01:15 67 20 12/06/18 01:08 67 18 12/06/18 01:05 66 14 98/51 L 12/06/18 01:04 74 18 98/51 L 97 12/06/18 00:48 98.8 F 77 19 77/51 L 96 PG Care Time/CCT Total # of Minutes Spent Total Time Spent with Patient: Total time spent is greater than 50% in coordination of care (as documented) at patient's floor/unit and/or counseling patient:
[2018-12-06] MEDS ORDERED: SODIUM CHLORIDE 0.9% 500 ML IV SCH (05:30)
[2018-12-06] MEDS ORDERED: D5W AND LACTATED RINGERS 1,000 ML IV SCH (05:45)
[2018-12-06] MEDS ORDERED: MoRPHine SULFATE 4 MG/ML 1 ML CARP\\VIAL IV PRN (06:02)
[2018-12-06] MEDS ORDERED: ONDANSETRON INJ 2 MG/ML 2 ML VIAL IV PRN (06:37)
[2018-12-06] MEDS ORDERED: MAGNESIUM HYDROXIDE SUSP 30 ML UDC PO PRN (06:37)
[2018-12-06] MEDS ORDERED: TRAMADOL HCL 50 MG TABLET PO PRN (06:37)
[2018-12-06] MEDS ORDERED: POLYETHYLENE (MIRALAX) 17 GM PACK PO PRN (06:37)
[2018-12-06] MEDS ORDERED: ALUMINUM/MAGNESIUM SUSP 30 ML UDC PO PRN (06:37)
--- NOTE | 2018-12-06 07:16 | Family Medicine Progress Note ---
Date of Service December 06, 2018 Assessment & Plan (1) Acute pyelonephritis: 62 y/o F Hx CKD III, GERD, R ureteral reconstruction surgery. Presents with R flank and lower back pain, nausea and rigors. The pt denies vomiting or dysuria. Initial labs are notable for mild acute on chronic renal impairment and are otherwise unremarkable including a normal lactic. A CT demonstrates pyelonephritis. The pt was hypotensive on arrival to the ER, however, her pressure rebounded and stabilized with a fluid bolus. 1) Pyelonephritis clinical history and imaging are consistent with pyelonephritis. Laboratory results are fairly unremarkable with the exception of a slight bump in creatinine demonstrating an acute on chronic kidney injury. Patient received a IVF fluid bolus in the ED. If no clinical improvement in 24- 48 hours will consider uro consult. -Ceftriaxone pending culture results -Follow-up repeat lactate -Analgesia with tramadol 50 mg p.o. every 4 hours as needed -Maintenance IV fluids Lr @125 cc/hr 2) CKD III patient has a history of chronic kidney disease. From review of her records it appears as if her baseline creatinine is somewhere around 1.2-1.3. Admission creatinine was 1.42 demonstrating acute on chronic exacerbation of kidney injury. -Maintenance IVF -Trend daily BMP 3) GERD -cont Pantoprazole 4) Anxiety/Depression -Continue Celexa FENa: Regular Code Status: Full DVT PPX: Heparin Dispo: MedSurg Supervising Physician Co-Signing Physician Notes I personally examined the patient and verified all higgins points of history and exam, discussed case, and agree with decision making with Dr Mercado. Feeling about the same. Symptoms did start with dysuria on Thursday before progressing to current symptom complex. Vitals noted, in general she appears fatigued otherwise uncomfortable but no significant distress. HEENT normocephalic atraumatic mucous members moist. Breathing unlabored no accessory muscle use good effort. Skin shows no rashes no pallor or icterus. Presumed pyelonephritisher symptoms and CT findings certainly fit with this best, obviously will need to continue to follow this closely for improvement given her lack of other characteristic findings such as elevated white count/temperature, or inflammatory markers. Currently a pyelo-does fit the best though, continue ceftriaxone, follow cultures, follow symptoms. Urology involvement as an outpatient if she improves (given her repeated infections and reconstructed urinary anatomy) or urology inpatient if she does not improve. Subjective Patient seen and evaluated this morning, laying in her bed in no acute distress. Patient reports difficulty sleeping overnight secondary to admission and pain. Patient reports her symptoms started a couple of days ago initially beginning with burning with urination. Symptoms progressed slowly and progressively over time the point of having fevers and chills. Yesterday evening she had chills and Rigors and took a Tylenol before going to bed she woke up in the middle the night with excruciating pain and proceeded to the ED for further evaluation. She denies any nausea or vomiting. Patient does have a history of urinary problems. 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 Since that time the patient has been having recurrent urinary tract infections. 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 Currently the patient is tolerating her diet, sleeping, voiding, stooling. In the ER the patient was alerted that her known ovarian cyst had increased in size. A transvaginal US was were performed patient was questioning what the results were. there are no acute concerns, all questions were answered. Physical Exam Physical Exam: General: No acute distress HEENT: Normal cephalic atraumatic Neck: Normal visual inspection, negative JVD, trachea midline Cardiac: Regular rate and rhythm, normal S1, normal S2, I did not appreciate any murmurs rubs or gallops, negative pedal edema, negative calf tenderness Respiratory: Clear to auscultation bilaterally GI: CVA tenderness positive bilaterally, left greater than right. Otherwise normal bowel sounds, soft, nontender, nondistended MSK: Moves all extremities Skin: No new rashes Neuro: Alert and oriented Psych: Cooperative Results & Data Vital Signs (Past 12 Hours) Vital Signs Temp Pulse Pulse Pulse Resp BP BP 12/06/18 06:41 37.0 C 70 16 92/61 L 12/06/18 06:01 76 28 H 102/53 L 12/06/18 05:46 73 15 95/54 L 12/06/18 05:31 70 16 103/50 L 12/06/18 05:16 70 15 81/62 L 12/06/18 05:01 66 15 122/58 L 12/06/18 04:46 65 12 113/62 12/06/18 04:31 69 20 109/62 12/06/18 04:14 62 60 15 108/67 108/67 12/06/18 03:16 66 16 103/60 12/06/18 03:01 70 16 103/59 L 12/06/18 02:46 65 13 118/61 12/06/18 02:31 65 19 99/53 L 12/06/18 02:16 69 16 108/57 L 12/06/18 01:45 63 18 12/06/18 01:31 59 L 19 109/53 L 12/06/18 01:30 60 20 12/06/18 01:16 66 18 94/54 L 12/06/18 01:15 67 20 12/06/18 01:08 67 18 12/06/18 01:05 66 14 98/51 L 12/06/18 01:04 74 18 98/51 L 12/06/18 00:48 37.1 C 77 19 77/51 L Pulse Ox 12/06/18 06:41 96 12/06/18 06:01 96 12/06/18 05:46 95 12/06/18 05:31 93 12/06/18 05:16 93 12/06/18 05:01 96 12/06/18 04:46 95 12/06/18 04:31 95 12/06/18 04:14 95 12/06/18 03:16 95 12/06/18 03:01 96 12/06/18 02:46 95 12/06/18 02:31 95 12/06/18 02:16 97 12/06/18 01:45 94 12/06/18 01:31 12/06/18 01:30 12/06/18 01:16 93 12/06/18 01:15 12/06/18 01:08 12/06/18 01:05 12/06/18 01:04 97 12/06/18 00:48 96 Laboratory Results 12/06/18 12/06/18 12/06/18 Range/Units 06:57 02:15 01:27 WBC (4.8-10.8) K/uL RBC (4.2-5.4) M/uL Hgb (12.0-16.0) g/dL Hct (37-47) % MCV (80-100) fL MCH (25-34) pg MCHC (32-36) g/dL RDW Std Deviation (36.4-46.3) fL RDW Coeff of Efren (11.5-14.5) % Plt Count (130-400) K/uL MPV (7.4-10.4) fL Immature Gran % (Auto) % Neut % (Auto) % Lymph % (Auto) % [place] % (Auto) % Eos % (Auto) % Baso % (Auto) % Immature Gran # (Auto) (0.00-0.02) K/uL Neut # (Auto) (1.4-6.5) K/uL Lymph # (Auto) (1.2-3.4) K/uL [place] # (Auto) (0.11-0.59) K/uL Eos # (Auto) (0-0.5) K/uL Baso # (Auto) (0-0.2) K/uL PT (9.0-12.0) Seconds INR (0.9-1.1) APTT (21.0-31.0) Seconds PTT Ratio Sodium 141 (136-145) mmol/L Potassium 3.7 (3.5-5.1) mmol/L Chloride 109 H (98-107) mmol/L Carbon Dioxide 21 (21-32) mmol/L Anion Gap 11.0 (3-11) BUN 24 H (7-18) mg/dl Creatinine 1.42 H (0.6-1.2) mg/dl Est Cr Clr Drug Dosing 40.1 ml/min Est GFR ( Amer) 46.4 Est GFR (Non-Af Amer) 40.0 BUN/Creatinine Ratio 16.8 (10-20) Glucose 130 H (70-99) mg/dl Lactate 0.9 (0.4-2.0) mmol/L Calcium 8.3 L (8.5-10.1) mg/dl Total Bilirubin 0.6 (0.2-1) mg/dl AST 22 (15-37) U/L ALT 31 (12-78) U/L Alkaline Phosphatase 76 (45-117) U/L Troponin I < 0.015 (0-0.045) ng/ml Total Protein 7.2 (6.4-8.2) gm/dl Albumin 3.8 (3.4-5.0) gm/dl Globulin 3.4 (2.5-4.0) gm/dl Albumin/Globulin Ratio 1.1 (0.9-2) Urine Color Yellow Urine Appearance Turbid A (Clear) Urine pH 6.5 (4.5-7.5) Ur Specific [place] 1.015 (1.000-1.030) Urine Protein 3+ H (Negative) Urine Glucose (UA) Negative (Negative) Urine Ketones Negative (Negative) Urine Blood 3+ H (Negative) Urine Nitrite Positive A (Negative) Urine Bilirubin Negative (Negative) Urine Urobilinogen Negative (Negative) Ur Leukocyte Esterase 3+ H (Negative) Urine WBC (Auto) >30 H (0-5) /hpf Urine RBC (Auto) >30 H (0-4) /hpf U Hyaline Cast (Auto) 1-5 (0-5) /lpf U Epithel Cells (Auto) 5-10 H (0-5) /lpf Urine Bacteria (Auto) 4+ H (Negative) Urine Yeast Not Reportable 12/06/18 12/06/18 Range/Units 01:27 01:27 WBC 9.71 (4.8-10.8) K/uL RBC 4.33 (4.2-5.4) M/uL Hgb 14.0 (12.0-16.0) g/dL Hct 40.9 (37-47) % MCV 94.5 (80-100) fL MCH 32.3 (25-34) pg MCHC 34.2 (32-36) g/dL RDW Std Deviation 43.8 (36.4-46.3) fL RDW Coeff of Efren 12.7 (11.5-14.5) % Plt Count 129 L (130-400) K/uL MPV 11.1 H (7.4-10.4) fL Immature Gran % (Auto) 0.2 % Neut % (Auto) 86.1 % Lymph % (Auto) 4.8 % [place] % (Auto) 8.0 % Eos % (Auto) 0.7 % Baso % (Auto) 0.2 % Immature Gran # (Auto) 0.02 (0.00-0.02) K/uL Neut # (Auto) 8.35 H (1.4-6.5) K/uL Lymph # (Auto) 0.47 L (1.2-3.4) K/uL [place] # (Auto) 0.78 H (0.11-0.59) K/uL Eos # (Auto) 0.07 (0-0.5) K/uL Baso # (Auto) 0.02 (0-0.2) K/uL PT 10.5 (9.0-12.0) Seconds INR 1.0 (0.9-1.1) APTT 24.5 (21.0-31.0) Seconds PTT Ratio 0.9 Sodium (136-145) mmol/L Potassium (3.5-5.1) mmol/L Chloride (98-107) mmol/L Carbon Dioxide (21-32) mmol/L Anion Gap (3-11) BUN (7-18) mg/dl Creatinine (0.6-1.2) mg/dl Est Cr Clr Drug Dosing ml/min Est GFR ( Amer) Est GFR (Non-Af Amer) BUN/Creatinine Ratio (10-20) Glucose (70-99) mg/dl Lactate (0.4-2.0) mmol/L Calcium (8.5-10.1) mg/dl Total Bilirubin (0.2-1) mg/dl AST (15-37) U/L ALT (12-78) U/L Alkaline Phosphatase (45-117) U/L Troponin I (0-0.045) ng/ml Total Protein (6.4-8.2) gm/dl Albumin (3.4-5.0) gm/dl Globulin (2.5-4.0) gm/dl Albumin/Globulin Ratio (0.9-2) Urine Color Urine Appearance (Clear) Urine pH (4.5-7.5) Ur Specific [place] (1.000-1.030) Urine Protein (Negative) Urine Glucose (UA) (Negative) Urine Ketones (Negative) Urine Blood (Negative) Urine Nitrite (Negative) Urine Bilirubin (Negative) Urine Urobilinogen (Negative) Ur Leukocyte Esterase (Negative) Urine WBC (Auto) (0-5) /hpf Urine RBC (Auto) (0-4) /hpf U Hyaline Cast (Auto) (0-5) /lpf U Epithel Cells (Auto) (0-5) /lpf Urine Bacteria (Auto) (Negative) Urine Yeast Medications Administered Current Inpatient Medications Acetaminophen (Tylenol) 650 mg PO Q4H PRN PRN Reason: pain/fever Stop: 01/05/19 06:36 Al Hydrox/Mg Hydrox/Simethicone (Maalox) 30 ml PO Q6H PRN PRN Reason: Dyspepsia Stop: 01/05/19 06:36 Citalopram Hydrobromide (Celexa) 40 mg PO DAILY [facility] Stop: 01/05/19 08:59 Heparin Sodium (Porcine) (Heparin Sodium (Porcine)) 5,000 units SQ Q8 GUILLERMO Stop: 01/05/19 06:36 Ceftriaxone Sodium 1,000 mg/ (Dextrose) 50 mls @ 100 mls/hr IV Q24H GUILLERMO; Protocol Stop: 12/15/18 02:29 Lactated Ringer's (Lr) 1,000 mls @ 125 mls/hr IV .Q8H GUILLERMO Stop: 01/05/19 07:44 Magnesium Hydroxide (Milk Of Magnesia) 30 ml PO Q6H PRN PRN Reason: Constipation Stop: 01/05/19 06:36 Morphine Sulfate (Morphine Sulfate) 4 mg IV Q8H PRN PRN Reason: Pain Stop: 12/20/18 06:01 Ondansetron HCl (Zofran) 4 mg IV Q6H PRN PRN Reason: Nausea Stop: 01/05/19 06:36 Pantoprazole Sodium (Protonix) 40 mg PO BID [facility] Stop: 01/05/19 08:59 Polyethylene Glycol (Miralax Powder Packet) 17 gm PO DAILY PRN PRN Reason: Constipation Stop: 01/05/19 06:36 Tramadol HCl (Ultram) 50 mg PO Q4H PRN PRN Reason: Pain Stop: 01/05/19 06:36 Last Admin: 12/06/18 07:20 Dose: 50 mg Documented by: PG Care Time/CCT Total # of Minutes Spent Total Time Spent with Patient: Total time spent is greater than 50% in coordination of care (as documented) at patient's floor/unit and/or counseling patient: Resident Activity Tracking Resident Involvement: Resident Care Provided Care Provided: Adult Hospital Medicine
--- NOTE | 2018-12-06 07:28 | Ultrasound Report ---
ULTRASOUND OF THE PELVIS CLINICAL HISTORY: Cyst seen by CT. COMPARISON STUDY: Pelvic CT dated 12/06/2018. TECHNIQUE: Real-time, grayscale, and color flow sonography of the pelvis is performed both transabdom inally and endovaginally. Images are reviewed in the transverse and longitudinal planes. FINDINGS: Uterus: The retroverted uterus is normal in size and echotexture, measuring 5.6 x 3.6 x 4.9 cm. There are numerous small fibroids which measure up to 1.3 cm. Endometrium: The endometrium is heterogeneous and thickened for age, measuring up to 0.7 cm. There is trace fluid noted within the endometrial canal. Ovaries: The ovaries are normal in size and morphology. The right ovary measures 2.2 x 0.8 x 1.0 cm a nd the left ovary measures 4.5 x 3.6 x 3.5 cm. There is a simple appearing cyst with a thin internal septation identified in the left ovary which measures 4.2 x 3.1 x 3.5 cm. Normal Doppler waveforms ar e shown within both ovaries. Pelvis: There is no free fluid in the cul-de-sac. No concerning adnexal lesion is seen. IMPRESSION: 1. Retroverted fibroid uterus. 2. The endometrium appears thickened for age measuring up to 7 mm. Additionally, there is a 4.2 cm si mple appearing cystic lesion identified within the left ovary. Follow-up with gynecology is recommend ed for both of these findings. 3. The right ovary is normal as imaged. Electronically signed by: Nico Miller M.D. 12/06/2018 7:27 AM
--- NOTE | 2018-12-06 07:49 | CT Scan Report ---
ABDOMEN AND PELVIS CT WITHOUT CONTRAST CT DOSE: 825.89 mGy.cm HISTORY: Acute right-sided flank pain right flank pain TECHNIQUE: Multiaxial CT images of the abdomen and pelvis were performed without contrast. A dose lo wering technique was utilized adhering to the principles of ALARA. COMPARISON STUDY: CT abdomen and pelvis 06/13/2017. FINDINGS: Calcified granuloma of the lateral basal segment right lower lobe. Mild subsegmental bibasilar atelec tasis. There is no pneumatosis or pneumoperitoneum. Imaged inferior cardiac chambers appear unremarka ble. Scattered calcified granulomata of the spleen. Liver, gallbladder, pancreas and adrenal glands a ppear unremarkable. Lobular morphology of the left kidney. Multiple nonobstructing left sided renal c alculi measure up to 8 mm within the inferior pole. No left-sided ureteral calculi or obstructive uro osmin. Urothelial thickening about the right renal collecting system, renal pelvis and proximal right ureter with slightly progressed perinephric and proximal right periureteral inflammation. Postoperat vanda changes of the mid and distal right ureter redemonstrated. Partial distention of the urinary blad betsy. Uterus and right adnexum appear unremarkable. Unchanged 3.1 cm cystic lesion of the left adnexum . Calcified plaque of the abdominal aorta appears unchanged. Postoperative changes from prior gastric bypass. No bowel obstruction or bowel wall thickening identi fied. No ascites or mesenteric inflammation. Normal appendix. Soft tissues are within normal limits. Multilevel facet arthrosis with spondylitic spurring. Severe degenerative changes about the pubic sym physis. IMPRESSION: 1. Postoperative changes of the right ureter redemonstrated. Urothelial thickening about the right re nal collecting system, renal pelvis and proximal right ureter redemonstrated with progressive perinep hric and periureteral inflammation. Correlate clinically to exclude infectious or inflammatory pyelit is/ureteritis with neoplasm also within the differential, however considered less likely. 2. Nonobstructing left nephrolithiasis. 3. No bowel obstruction or bowel wall thickening. 4. Prior gastric bypass. 5. Prior granulomatous disease. 6. Additional findings as above. Electronically signed by: Christos Lawson M.D. 12/06/2018 7:48 AM
[2018-12-06] MEDS: HEPARIN SOD 5,000 UNIT/0.5 ML VIAL SQ SCH ×3 (07:58→21:10)
[2018-12-06] MEDS: CITALOPRAM 40 MG TAB PO SCH (07:58)
[2018-12-06] MEDS: PANTOprazole 40 MG TAB PO SCH ×2 (07:58→21:09)
[2018-12-06] MEDS: LACTATED RINGER'S 1,000 ML IV SCH ×3 (07:59→23:18)
--- NOTE | 2018-12-06 08:50 | Emergency Department Note ---
ED Visit Note Patient seen and evaluated here at bedside after discussion with physician grants assistant. Please refer to her note for additional details. Patient initially presented hypotensive, however responded appropriately to IV fluids. Patient found to have pyelonephritis based on labs, UA, and CT findings. Patient still with intermittent rigors here, however no fever. Patient's blood pressure held while receiving IV fluids, pain controlled with additional Tylenol and Toradol. Patient with mild elevation in her creatinine compared to prior. Patient was tolerating p.o., however given concern for evolving infection and mild hypotension, the physician grants assistant discussed the case with the [facility] for additional evaluation and treatment. .
[2018-12-06] MEDS: ACETAMINOPHEN 325 MG TAB PO PRN (13:26)
[2018-12-06] MEDS ORDERED: POTASSIUM CHLORIDE 20 MEQ TABCR PO STA (14:46)
[2018-12-07] MEDS ORDERED: cefTRIAXone SODIUM 1,000 MG in DEXTROSE 5% 50 ML IV SCH (02:00)
[2018-12-07] MEDS: HEPARIN SOD 5,000 UNIT/0.5 ML VIAL SQ SCH (05:28)
--- NOTE | 2018-12-07 07:00 | Family Medicine Progress Note ---
Date of Service December 07, 2018 Assessment & Plan (1) Acute pyelonephritis: 62 y/o F Hx CKD III, GERD, R ureteral reconstruction surgery. Presents with R flank and lower back pain, nausea and rigors. The pt denies vomiting or dysuria. Initial labs are notable for mild acute on chronic renal impairment and are otherwise unremarkable including a normal lactic. A CT demonstrates pyelonephritis. The pt was hypotensive on arrival to the ER, however, her pressure rebounded and stabilized with a fluid bolus. # Pyelonephritis clinical history and imaging are consistent with pyelonephritis. Laboratory results are fairly unremarkable with the exception of a slight bump in creatinine demonstrating an acute on chronic kidney injury. Patient received a IVF fluid bolus in the ED. If no clinical improvement in 24-48 hours will consider uro consult. -Improving clinically, continue Ceftriaxone (day 2) narrow pending culture results -Analgesia with tramadol 50 mg p.o. every 4 hours as needed -Maintenance IV fluids Lr @125 cc/hr, no signs or symptoms of fluid overload # CKD III Patient has a history of chronic kidney disease. From review of her records it appears as if her baseline creatinine is somewhere around 1.2-1.3. Admission creatinine was 1.42 demonstrating acute on chronic exacerbation of kidney injury. -Cr today -Maintenance IVF -Trend daily BMP, replete electrolytes as indicated # GERD -cont Pantoprazole # Anxiety/Depression -Continue Celexa #Incidental ovarian mass Abdomen pelvis CT demonstrated ovarian mass,3.1 cm cystic lesion of the left. This mass is known to the patient and is currently being observed. Follow-up ultrasound of the pelvis demonstrated a retroverted fibroid uterus, thickened endometrium proximally approximately 7 mm. 4.2 cm simple appearing cystic lesion identified within the left ovary. Outpatient CRUISE DIRECTOR follow-up recommended FENa: Regular Code Status: Full DVT PPX: Heparin Dispo: MedSurg Subjective Patient sitting in bed this morning in no acute distress. Patient reports no significant interval history overnight. Patient reports significant improvement in symptoms that caused her to present to the hospital, she has been afebrile, chills, and her pain is improved. Reviewed her conversation with the patient yesterday there was not a lot of laboratory evidence for her having a kidney infection however she is improving on treatment. We will continue to monitor her cultures, and clinical course, however her's presentation and symptomology may have been more related to anatomy status post surgical reconstruction of ureter as opposed to infection. Patient is voiding, stooling, tolerating her diet, no acute concerns at present all questions answered. Physical Exam Physical Exam: General: No acute distress HEENT: Normal cephalic atraumatic Neck: Normal visual inspection, negative JVD, trachea midline Cardiac: Regular rate and rhythm, normal S1, normal S2, I did not appreciate any murmurs rubs or gallops, negative pedal edema, negative calf tenderness Respiratory: Clear to auscultation bilaterally GI: CVA tenderness positive on right, neg on left Otherwise normal bowel sounds, soft, nontender, nondistended MSK: Moves all extremities Skin: No new rashes Neuro: Alert and oriented Psych: Cooperative Results & Data Vital Signs (Past 12 Hours) Vital Signs Temp Pulse Resp BP Pulse Ox 12/06/18 23:56 37.0 C 63 18 144/73 H 95 Laboratory Results Abnormal lab results 12/07/18 Range/Units 09:48 RBC 3.64 L (4.2-5.4) M/uL Hgb 11.8 L (12.0-16.0) g/dL Hct 34.9 L (37-47) % Plt Count 109 L (130-400) K/uL MPV 10.6 H (7.4-10.4) fL Lymph # (Auto) 0.86 L (1.2-3.4) K/uL Medications Administered Current Inpatient Medications Acetaminophen (Tylenol) 650 mg PO Q4H PRN PRN Reason: pain/fever Stop: 01/05/19 06:36 Last Admin: 12/07/18 08:00 Dose: 650 mg Documented by: Al Hydrox/Mg Hydrox/Simethicone (Maalox) 30 ml PO Q6H PRN PRN Reason: Dyspepsia Stop: 01/05/19 06:36 Citalopram Hydrobromide (Celexa) 40 mg PO DAILY [facility] Stop: 01/05/19 08:59 Last Admin: 12/07/18 07:57 Dose: 40 mg Documented by: Heparin Sodium (Porcine) (Heparin Sodium (Porcine)) 5,000 units SQ Q8 GUILLERMO Stop: 01/05/19 06:36 Last Admin: 12/07/18 05:28 Dose: 5,000 units Documented by: Ceftriaxone Sodium 1,000 mg/ (Dextrose) 50 mls @ 100 mls/hr IV Q24H GUILLERMO; Protocol Stop: 12/15/18 02:29 Last Infusion: 12/07/18 03:25 Dose: Infused Documented by: Lactated Ringer's (Lr) 1,000 mls @ 125 mls/hr IV .Q8H GUILLERMO Stop: 01/05/19 07:44 Last Admin: 12/07/18 07:57 Dose: 125 mls/hr Documented by: Magnesium Hydroxide (Milk Of Magnesia) 30 ml PO Q6H PRN PRN Reason: Constipation Stop: 01/05/19 06:36 Morphine Sulfate (Morphine Sulfate) 4 mg IV Q8H PRN PRN Reason: Pain Stop: 12/20/18 06:01 Ondansetron HCl (Zofran) 4 mg IV Q6H PRN PRN Reason: Nausea Stop: 01/05/19 06:36 Pantoprazole Sodium (Protonix) 40 mg PO BID GUILLERMO Stop: 01/05/19 08:59 Last Admin: 12/07/18 07:57 Dose: 40 mg Documented by: Polyethylene Glycol (Miralax Powder Packet) 17 gm PO DAILY PRN PRN Reason: Constipation Stop: 01/05/19 06:36 Tramadol HCl (Ultram) 50 mg PO Q4H PRN PRN Reason: Pain Stop: 01/05/19 06:36 Last Admin: 12/06/18 07:20 Dose: 50 mg Documented by: PG Care Time/CCT Total # of Minutes Spent Total Time Spent with Patient: Total time spent is greater than 50% in coordination of care (as documented) at patient's floor/unit and/or counseling patient:
[2018-12-07] MEDS: PANTOprazole 40 MG TAB PO SCH (07:57)
[2018-12-07] MEDS: LACTATED RINGER'S 1,000 ML IV SCH (07:57)
[2018-12-07] MEDS: CITALOPRAM 40 MG TAB PO SCH (07:57)
[2018-12-07] MEDS: ACETAMINOPHEN 325 MG TAB PO PRN (08:00)
[2018-12-07 10:01] LABS: Basophils # (auto) 0.01 K/uL (0-0.2); Basophils % (auto) 0.2 %; Eosinophils # (auto) 0.12 K/uL (0-0.5); Eosinophils % (auto) 2.1 %; Hematocrit (blood only) 34.9 % (37-47); Hemoglobin 11.8 g/dL (12.0-16.0); Immature Granulocytes # (auto) 0.01 K/uL (0.00-0.02); Immature Granulocytes % (auto) 0.2 %; Lymphocytes # (auto) 0.86 K/uL (1.2-3.4); Lymphocytes % (auto) 14.8 %; Mean Corpuscular Hgb Conc 33.8 g/dL (32-36); Mean Corpuscular Volume 95.9 fL (80-100); Mean Platelet Volume 10.6 fL (7.4-10.4); Monocytes % (auto) 8.6 %; Neutrophils # (auto) 4.31 K/uL (1.4-6.5); Neutrophils % (auto) 74.1 %; Platelet Count 109 K/uL (130-400); RDW Coefficient of Variation 13.1 % (11.5-14.5); RDW Standard Deviation 46.1 fL (36.4-46.3); Red Blood Count 3.64 M/uL (4.2-5.4); White Blood Count 5.81 K/uL (4.8-10.8)
[2018-12-07 10:51] LABS: Calcium 8.2 mg/dl (8.5-10.1); Creatinine Clr Calc Pharmacy 49.7 ml/min; Est GFR (African American) 56.9; Est GFR (Non-African American) 49.1; Potassium 3.9 mmol/L (3.5-5.1)
--- NOTE | 2018-12-07 12:18 | Discharge Summary ---
Date of Service December 07, 2018 Admission HPI Per Admitting Provider 62 y/o F Hx CKD III, GERD, R ureteral reconstruction surgery. Presents with R flank and lower back pain, nausea and rigors. The pt denies vomiting or dysuria. Initial labs are notable for mild acute on chronic renal impairment and are otherwise unremarkable including a normal lactic. A CT demonstrates pyelonephritis. The pt was hypotensive on arrival to the ER, however, her pressure rebounded and stabilized with a fluid bolus. PMH: 1) Formerly obese 2) R ureteral obstruction requiring reconstructive surgery 3) CKD III 4) GERD 5) Depression Surgical: 1) Gastric bypass 2014 2) R ureteral reconstruction Social: Does not smoke Drinks occasionally Family: Mother with bladder CA Father after falling down stairs Admission Exam Per Admitting Provider General: AAO x 3, no distress ENT: No erythema or exudates, no thrush Eyes: ANTHONY, EOMI Head and neck: Normocephalic, atraumatic, No JVD, neck is supple. Chest/heart: Nontender, S1,2, RRR, no murmurs, no gallops Lungs: CTAB, no wheezing or crackles Abdomen: Nontender, nondistended, BS+ Neuro: AAO x 3, speech is clear, no unilateral weakness or loss of sensation, co ordination intact Musculoskeletal: Tenderness RL back Skin: No acute rashes or ulcers Extremities: No clubbing, cyanosis, edema Principal Diagnosis Pyelonephritis Discharge Exam General: No acute distress HEENT: Normal cephalic atraumatic Neck: Normal visual inspection, negative JVD, trachea midline Cardiac: Regular rate and rhythm, normal S1, normal S2, I did not appreciate any murmurs rubs or gallops, negative pedal edema, negative calf tenderness Respiratory: Clear to auscultation bilaterally GI: CVA tenderness positive on right, neg on left Otherwise normal bowel sounds, soft, nontender, nondistended MSK: Moves all extremities Skin: No new rashes Neuro: Alert and oriented Psych: Cooperative Discharge Data Allergies Allergy/AdvReac Type Severity Reaction Status Date / Time Gadolinium-Containing Allergy Severe ANAPHYLAXIS Verified 12/06/18 01:35 Contrast Medi iodine Allergy Severe ANAPHYLAXIS Verified 12/06/18 01:35 amoxicillin Allergy Intermediate SEVERE Verified 12/06/18 01:35 HIVES aspirin Allergy Unknown NOT TO Verified 12/06/18 01:35 HAVE DUE TO GASTRIC ULCER/LOW KIDNEY FUNCTION Bactrim Allergy Unknown RASH Verified 07/06/17 08:17 sulfamethoxazole Allergy Unknown RASH Verified 12/06/18 01:35 trimethoprim Allergy Unknown RASH Verified 12/06/18 01:35 Consultations 12/06/18 05:09 ED Decision to Admit Stat Ordered Studies 12/06/18 01:08 CT abd pelvis wo con Urgent 12/06/18 02:41 US pelvic complete Urgent 12/06/18 02:42 US transvaginal Urgent Hospital Course (1) Acute pyelonephritis: 62 y/o F Hx CKD III, GERD, R ureteral reconstruction surgery. Presents with R flank and lower back pain, nausea and rigors. The pt denies vomiting or dysuria. Initial labs are notable for mild acute on chronic renal impairment and are otherwise unremarkable including a normal lactic. A CT demonstrates pyelonephritis. The pt was hypotensive on arrival to the ER, however, her pressure rebounded and stabilized with a fluid bolus. # Pyelonephritis clinical history and imaging are consistent with pyelonephritis. Laboratory results are fairly unremarkable with the exception of a slight bump in creatinine demonstrating an acute on chronic kidney injury. Patient received a IVF fluid bolus in the ED. she was admitted to the inpatient service and given maintenance IVF fluids. patient was placed on ceftriaxone and maintained on IV antibiotics for 2 days. Clinically she is showed improvement in symptomology, decreased CVA tenderness on physical exam. And remained afebrile without Rigors. She was transitioned to oral cefdinir to complete a 2-week course as an outpatient. # CKD III Patient has a history of chronic kidney disease. From review of her records it appears as if her baseline creatinine is somewhere around 1.2-1.3. Admission creatinine was 1.42 demonstrating acute on chronic exacerbation of kidney injury. She was provided maintenance intravenous fluids and her kidney function creatinine on discharge was 1.2 # GERD -cont Pantoprazole # Anxiety/Depression -Continue Celexa #Incidental ovarian mass Abdomen pelvis CT demonstrated ovarian mass,3.1 cm cystic lesion of the left. This mass is known to the patient and is currently being observed. Follow-up ultrasound of the pelvis demonstrated a retroverted fibroid uterus, thickened endometrium proximally approximately 7 mm. 4.2 cm simple appearing cystic lesion identified within the left ovary. Outpatient CERTIFIED PROFESSIONAL ERGONOMIST follow-up recommended FENa: Regular Code Status: Full DVT PPX: Heparin Dispo: MedSurg Total Time Total Time Spent Total Time Spent (In Minutes): <30 Discharge Plan Discharge Items Patient Disposition: Home - Self-Care Reason For Visit: PYELONEPHRITIS Discharge Diagnosis: Pyelonephritis Condition: Fair Discharge Goals: Decrease discomfort and Therapeutic intervention Activity: Resume your previous activity Activity Comment: as tolerated Non-emergency contact: Primary Care Provider Call non-emergency contact if: you have any medication questions, your symptoms worsen, your pain is not controlled and your temperature is above 100.5 Follow-up/Referrals: Cristo Andrews MD [Physician] - 12/14/18 10:30 am (Please, follow up at [facility] Urology Office with Dr. Andrews on ThursdayDecember 14 at 10:30 am. *If you need to change this appointment, call the office at [phone].) Anali Bennett CRNP [Primary Care Provider] - 12/16/18 11:00 am (Please, follow up at [facility] Bennett's office withher associate, Latha Cortes PA-C, on December 16 at 11:00 am. *If you need to change this appointment, call their office at [phone].) Diet: Heart Healthy Addtl Provider Instructions: Care instructions: You were admitted to [facility] for treatment of pyelonephritis, this is an infection of the kidneys. Given your history of ureter reconstruction, you may be at increased likelihood to develop kidney infections. You should follow-up with your outpatient urologist to discuss with them what can be done to prevent the development of future kidney infections. There is a small but not insignificant chance that we may call you tomorrow when further results from your urine culture have been obtained and suggested he switch antibiotics. As we discussed during your admission, an incidental ovarian mass was noted on CT scan in addition to thickened endometrial lining. Acutely these are not concerning however you should follow-up with your outpatient CERTIFIED PROFESSIONAL ERGONOMIST for further management. A discharge summary will be sent to your primary care physician to ensure continuity of care. Please bring this discharge summary with you to your next office appointment so that your provider can review it at that time. On discharge your intravenous antibiotic was transitioned to an oral form, Cefdinir. Please take this medication as directed, 2 times a day for 25 doses or 12.5 days. You should take your first dose this evening. This antibiotic may cause some stomach upset, taking the antibiotic with food will help to ameliorate the symptoms. Your medications have been called into [facility] on [address] [facility]. Follow-up appointments: - Keep all your follow-up appointments as already scheduled. If you cannot make an appointment, notify your provider. - Please call to request a follow-up appointment with your primary care physician within one week of discharge. Please let us know if you are unable to obtain an appointment Follow-up labs: - Please go to a lab nearest you and obtain the requested lab work. Please have this completed at least 3 hours before your doctor's appointment (or the day before your appointment if possible). Medications: - Your medication list has been reviewed and reconciled upon discharge to ensure accuracy and continuity of care. - You are provided with a list of all your current medications at this time. Please review this list closely and make note of any changes. - Please take all of your medications exactly as prescribed. - Tell your primary care provider if you cannot afford your medications. - Call your primary care provider if you are having any side effects or any other problems. - Call your primary care provider before taking any over the counter medications or supplements, including herbals and vitamins, because some of these may interact with your current medications and/or make your symptoms worse. Symptoms: Please call your primary care provider for symptoms including, but not limited to: fevers (temperatures greater than 100.4), chills, intractable nausea or vomiting, diarrhea, rash, shortness of breath, bleeding, pain, or if you experience any worsening of the symptoms that brought you to the hospital. For EMERGENCY and VERY SERIOUS health-related issues, such as chest pain, shortness of breath, or sudden onset of the symptoms that brought you to the hospital, you may need to call 911 or go directly to the Emergency Room It has been our privilege to take care of you during your hospital stay. And Above All Else Feel Better! Best Wishes, Star Mercado MD PGY1 Resident, Family & Community Medicine [facility] Residency at [facility] [address], [address] : [address] [place] [address], [place] [address] Prescriptions: New cefdinir 300 mg capsule 300 mg PO BID 12 Days Qty: 25 RF: 0 Continued citalopram 40 mg Tablet 40 mg PO DAILY RF: 0 pantoprazole 40 mg Tablet,Delayed Release (Dr/Ec) 40 mg PO BID RF: 0 Stand-Alone Forms: My [facility] Discharge Orders: Discharge Order (Routine); Ordered 12/07/18 Ordered By: Star Mercado Admission Data Admit Date/Time: 12/06/18 05:39 Attending Provider: Rayray Ba Admit Provider: Yann Viera Primary Care Provider: Anali Bennett I Other Providers: Yann Viera Service: Medical Other Interventions: Discharge Summary Assessment (RN) Last Done: 12/07/18 13:48 DC Date/Time DO NOT enter until pt leaves facility: 12/07/18 14:16 Supervising Physician Co-Signing Physician Notes I personally examined the patient and verified all higgins points of history and exam, discussed case, and agree with decision making with Dr Mercado. feeling better, would like to go home. Vitals noted, in general no significant distress. HEENT normocephalic atraumatic mucous members moist. Breathing unlabored no accessory muscle use good effort. Skin shows no rashes no pallor or icterus. Presumed pyelonephritisher symptoms and CT findings certainly fit with this best, clinical improvement w abx, and urine culture (+) all fit. lack of fever/white count/elevation of CRP do beg follow up w urology to ensure anatomic issues not at play, but stable for home. discussed risks/benefits - for home on cefdinir given improvement on rocephin, then if cultures dictate, will call to adjust abx - she prefers this plan to staying inpt for another night. stable for home otherwise as above Resident Activity Tracking Resident Involvement: Resident Care Provided Care Provided: Adult Hospital Medicine
== END 2018-12-07 14:16 | disposition home or self-care (01) | DRG 690 ==
LOC: ED 00:31 → SUATTDRO 05:39 → 4W 05:39

== ENCOUNTER 2022-01-07 14:04 | Inpatient (IN) ==
[2022-01-07] MEDS ORDERED: CEFEPIME 2,000 MG/20 ML VIAL IV STA (14:13)
--- NOTE | 2022-01-07 14:30 | XRay Report ---
XR chest 1V portable CLINICAL HISTORY: SEPSIS TECHNIQUE: Single frontal radiograph of the chest was obtained. Comparison: Comparison is made to chest radiograph 02/04/2021 FINDINGS: No lines and tubes are seen. The cardiomediastinal silhouette is normal. Calcified granulomata are se en. No evidence of pleural effusion or pneumothorax. IMPRESSION: No acute abnormalities and in particular no evidence of pneumonia. ACT 112: Negative or not required by law. Electronically signed by: Kermit Keller M.D. 01/07/2022 2:29 PM
[2022-01-07 14:55] LABS: Basophils # (auto) 0.05 K/uL (0-0.2); Basophils % (auto) 0.4 %; Eosinophils # (auto) 0.08 K/uL (0-0.50); Eosinophils % (auto) 0.6 %; Hematocrit (blood only) 39.7 % (34.1-44.9); Immature Granulocytes # (auto) 0.06 K/uL (0.00-0.02); Immature Granulocytes % (auto) 0.5 %; Lymphocytes % (auto) 8.7 %; Mean Corpuscular Hemoglobin 31.6 pg (25.0-34.0); Mean Corpuscular Hgb Conc 32.7 g/dL (32.0-36.0); Mean Corpuscular Volume 96.6 fL (80.0-100.0); Mean Platelet Volume 11.2 fL (9.4-12.3); Monocytes # (auto) 0.93 K/uL (0.24-0.82); Monocytes % (auto) 7.3 %; Neutrophils # (auto) 10.46 K/uL (1.4-6.5); Neutrophils % (auto) 82.5 %; Platelet Count 168 K/uL (130-400); RDW Coefficient of Variation 12.3 % (11.5-14.5); RDW Standard Deviation 43.4 fL (36.4-46.3); Red Blood Count 4.11 M/uL (3.93-5.22); White Blood Count 12.68 K/ul (4.8-10.8)
[2022-01-07 15:10] LABS: INR 1.1 (0.9-1.1); Partial Thromboplastin Ratio 1.1; Partial Thromboplastin Time 30.6 Seconds (21.0-31.0); Prothrombin Time 11.6 Seconds (9.0-12.0)
[2022-01-07 15:15] LABS: Albumin Globulin Ratio 1.3 (0.9-2); Albumin Level 3.9 gm/dl (3.4-5.0); BUN Creatinine Ratio 13.3 (10-20); Bilirubin,Total 0.6 mg/dl (0.2-1.0); Calcium 8.7 mg/dl (8.5-10.1); Creatinine Clr Calc Pharmacy 42.7 ml/min; Est GFR (African American) 51.2 ml/min; Est GFR (Non-African American) 44.1 ml/min; Magnesium 1.6 mg/dl (1.7-2.4); Potassium 3.8 mmol/L (3.5-5.1); Total Protein 6.9 gm/dl (6.0-8.3)
--- NOTE | 2022-01-07 15:33 | History & Physical Report ---
Date of Service January 07, 2022 Assessment & Plan (1) Pyelonephritis: Plan: - R sided pyelonephritis d/t GN UTI (biofire + klebsiella and enterobacter) - Admit to med/surg - IVF w/ NSS at 125 ml/hr - VS per unit - Activity as tolerated - APAP + Ketorolac as needed for pain - Empiric Rocephin 2g IV daily (given Cefepime in ED but does not require pseudomonal coverage) - Repeat labs in AM (2) Bacteremia: Plan: - GN bacteremia secondary to UTI - Antibiotics as above - Repeat blood cultures drawn today by ED but not necessary - Would treat given her pyelo x 14 days, can convert to oral upon d/c (3) Leukocytosis: Plan: - Mild with left shift - Treatment as outlined above, trend wbc (4) Kidney disease: Plan: - CKD Stage 3, stable and at baseline (5) GERD (gastroesophageal reflux disease): Plan: - Continue Protonix (6) Anxiety: Plan: - Continue Citalopram (7) Hypomagnesemia: Plan: - Replete Plan Interventions as outlined above. Replace mag, antibiotics, fluids, AM labs. Anticipate d/c in 24-48 hours to complete course of antibiotics. Above has been d/w Dr. Rome who has also seen and evaluated this patient and agrees with aforementioned. Additional orders will be implemented as warranted. History of Present Illness Chief Complaint: Blood infection, told to return Primary Care Provider: NILS Hutchison Gavi Colbert is a 66 yo WF w/ a h/o R ureteral reconstructive surgery done 15 years ago in [place], renal calculi, UTIs, s/p gastric bypass, GERD and depression/anxiety who presented to the ER today as instructed by EMD d/t "blood infection." Pt notes about 1 week ago started having symptoms of UTI including dysuria and frequency. She had left over Macrobid from a prior infection that she didn't end up taking and decided to start taking it. She states that despite that, she continued to feel poorly and began having right sided flank pain. Yesterday, increased malaise, chills, and significantly worsening flank pain wh ich prompted her to come to the ER. Her ED w/u demonstrated a normal wbc count but she was febrile with a temp of 103F with a grossly infected UA. In addition, she underwent CT a/p which showed perinephric fat stranding on the right. She was medicated with a dose of Rocephin and discharged home on a course of Cefdinir. Pt states that she got home around 0200, still felt poorly today, but she took some Tylenol and slept. She was contacted by the hospital and informed she needed to return to the [facility] d/t positive blood cultures. Repeat blood work in the ED demonstrates a wbc count of 12.68 with left shift. She was medicated with a dose of Cefepime and referred for admission. Allergies Allergy/AdvReac Type Severity Reaction Status Date / Time amoxicillin Allergy Severe SEVERE Verified 01/07/22 16:05 HIVES Gadolinium-Containing Allergy Severe ANAPHYLAXIS Verified 01/07/22 16:05 Contrast Medi iodine Allergy Severe ANAPHYLAXIS Verified 01/07/22 16:05 aspirin Allergy Unknown NOT TO Verified 01/07/22 16:05 HAVE DUE TO GASTRIC ULCER/LOW KIDNEY FUNCTION sulfamethoxazole Allergy Unknown RASH Verified 01/07/22 16:05 trimethoprim Allergy Unknown RASH Verified 01/07/22 16:05 ciprofloxacin [From Cipro] Allergy Skin Verified 01/07/22 16:05 mottling Latex, Natural Rubber AdvReac Mild Irritation Verified 01/07/22 16:05 Home Medications Medication Instructions Recorded Confirmed Type cholecalciferol (vitamin D3) 50 2,000 units PO QAM #30 caps 12/08/18 01/07/22 History mcg (2,000 unit) capsule multivitamin 1 tab PO BID 12/08/18 01/07/22 History cyanocobalamin (vitamin B-12) 1,000 mcg subcut MONTHLY 12/15/18 01/07/22 History 1,000 mcg/mL injection kit citalopram 40 mg tablet 20 mg PO QAM 03/07/19 01/07/22 History cetirizine 10 mg tablet 10 mg PO HS PRN Allergy Symptoms 03/26/19 01/07/22 History #30 tabs pantoprazole 40 mg tablet,delayed 40 mg PO BID #60 tabs 08/16/19 01/07/22 Rx release betamethasone dipropionate 0.05 % 1 applic topical DAILY #45 grams 06/24/21 01/07/22 Rx topical ointment cefdinir 300 mg capsule 300 mg PO BID 7 days #14 caps 01/07/22 01/07/22 Rx Past Med/Surg History Medical History Arrhythmia "an extra beat" occasionally. 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 monitoring Depression GERD (gastroesophageal reflux disease) High blood pressure hx -- no problems since gastric bypass History of COVID-19 asymptomatic. tested positive 05/2020. no current issues. Kidney stones Osteoarthritis Peptic ulcer disease hx Pneumonia hx Seizure as a child, no problems since about age 12 Sleep apnea hx -- resolved since gastric bypass Surgical History H/O oral surgery expansion of the top palate History of cardiac cath ~2000. no stents History of colonoscopy History of cystoscopy History of dilatation and curettage History of esophagogastroduodenoscopy (EGD) History of gastric bypass History of repair of right rotator cuff Hx of lithotripsy WITH LASER AND STONE REMOVAL S/P rotator cuff repair left S/P tonsillectomy Status post surgery ileum ureteral replacement (Right Ureter) Family History Mother Anxiety Depression Diabetes Hypertension Cancer Bladder cancer Seizure Grandmother Diabetes Skin cancer Grandfather Lung disease Father Skin cancer Sister Skin cancer Denies family history of Ovarian cancer Prostate cancer Myocardial infarction Breast cancer Colorectal cancer Social History Smoking Status: Never smoker Cigarettes Per Day: 1999; Second Hand Exposure: No; Hx Alcohol Use: Yes Alcohol type: wine Hx Substance Use: No Preferred Language: Syriac Communication Ability: Effective Coordinator Skill Training Program Required: No Beliefs That Will Affect Care: None Current Living Situation: Spouse Feels Safe at Home: Yes Dental Care, Regularly: Yes Physical Activity Frequency: 1-2 Times per Week Assistive Devices: CPAP and Glasses Review of Systems Review of Systems: All systems reviewed and are unremarkable except as noted in HPI and below. Denies headache, nasal congestion, sore throat, cough, chest pain, shortness of breath, palpitations, orthopnea, PND, abdominal pain, n/v/d, constipation, dysuria, hematuria, frequency, joint pain or swelling, easy bruising or bleeding, skin lesions or rashes. Physical Exam Physical Exam: GENERAL: 66 yo Well-developed, well-nourished WF. Nontoxic, NAD. EYES: EOMI. PERRLA. Anicteric. HENT: Moist mucous membranes. No scleral icterus. No cervical lymphadenopathy. LUNGS: Clear to auscultation bilaterally. No accessory muscle use. No W/R/R. CARDIOVASCULAR: Regular rate and rhythm. No M/G/R. No JVD. ABDOMEN: Soft, non-tender and non-distended. No palpable masses. Bowel sounds normoactive x 4 quad. +CVA tenderness on R. EXTREMITIES: No edema. Non-tender. Peripheral pulses +2/4. NEUROLOGIC: A&O x3. No focal neurological deficits. CN II-XII grossly intact. PSYCHIATRIC: Cooperative. Appropriate mood and affect. SKIN: Warm, dry, intact. No rashes or lesions. Results & Data Results & Data ([facility]) Vital Signs (Past 12 Hours) Vital Signs Temp Pulse Resp BP Pulse Ox O2 Del Method 01/07/22 14:42 18 96 Room Air 01/07/22 14:08 37.0 C 68 20 121/74 95 Room Air Laboratory Results 01/07/22 14:38 01/07/22 14:38 Diagnostic Findings Chest X-Ray 01/07/22 14:13 XR chest 1V portable CLINICAL HISTORY: SEPSIS TECHNIQUE: Single frontal radiograph of the chest was obtained. Comparison: Comparison is made to chest radiograph 02/04/2021 FINDINGS: No lines and tubes are seen. The cardiomediastinal silhouette is normal. Calcified granulomata are seen. No evidence of pleural effusion or pneumothorax. IMPRESSION: No acute abnormalities and in particular no evidence of pneumonia. ACT 112: Negative or not required by law. Electronically signed by: Kermit Keller M.D. 01/07/2022 2:29 PM ABDOMEN AND PELVIS CT WITHOUT CONTRAST CT DOSE: 633.57 mGy.cm HISTORY: Right flank pain fever ro pyelo TECHNIQUE: Multiaxial CT images of the abdomen and pelvis were performed without contrast. A dose lowering technique was utilized adhering to the principles of ALARA. COMPARISON STUDY: Abdomen and pelvis CT 10/30/2021. FINDINGS: There is a calcified granuloma within the right lung base. The left lung base is clear. No pneumoperitoneum. No pneumatosis. No suspicious lytic or blastic osseous lesions. The unenhanced liver, gallbladder, adrenal glands, and pancreas are unremarkable. There are few punctate calcified granulomas within the spleen. Stable left-sided nephrolithiasis. Right perinephric edema with urothelial thickening seen within the right renal collecting system and right ureter. The right ureter is patulous and inserts ectopically into the bladder dome which remains unchanged. No obstructing ureteral stones identified. No hydronephrosis. No bladder wall thickening. The uterus and right ovary within normal limits. No change in the 4.6 cm left ovarian cyst. No pelvic free fluid. Suboptimal evaluation for bowel pathology due to the lack of intravenous and oral contrast. However, there is no definite bowel wall thickening or obstruction. Colonic diverticulosis. No evidence for acute diverticulitis. Normal appendix. Postoperative changes consistent with prior gastric bypass. Normal caliber abdominal aorta. No retroperitoneal lymphadenopathy. IMPRESSION: 1. Right perinephric infiltration with urothelial thickening within the right renal collecting system and right ureter. This has slightly progressed and likely represents a right-sided pyelonephritis/pyelitis. 2. The right ureter remains patulous and inserts ectopically into the bladder dome. This remains unchanged. 3. No obstructing stones or hydronephrosis. 4. Left-sided nephrolithiasis, unchanged. 5. No bowel wall thickening or obstruction. 6. No change in the 4.6 cm left ovarian cystic lesion. This is considered pathologic in a postmenopausal female. Gynecologic consultation recommended. ACT 112: Positive. There are findings on this exam that require communication between the performing entity and the patient following Patient Test Result Information Act ([place] Act 112) guidelines. Electronically signed by: Steffen Frederick M.D. 01/07/2022 10:10 AM Dictated:01/07/22 1003 Transcribed: 01/07/22 1003 ECG Additional Comments: EKG NSR 71 bpm w/o acute st-t wave changes Supervising Physician Co-Signing Physician Notes Patient seen and examined, chart reviewed, case discussed with Katy Luna PA-C and I agree with the assessment and plan as above except as otherwise noted Labs and images reviewed Gavi is a 66-year-old female who presents after initial blood cultures returned positive for gram-negative rods. Gram-negative bacteremia due to right-sided pyelonephritis. Bio fire is positive for Klebsiella and Enterobacter, urine cultures are pending. No resistance genes are appreciated by PCR amplification. At bedside assessment patient reports she had previously had a temperature of over 100 and was feeling fever, chills, right flank pain and very poorly. She was discharged from the ER yesterday on cefdinir, and felt overall poorly since this morning may be a little better since yesterday. Breathing is unlabored, no chest pain, some back discomfort but no overt CVA tenderness. Nontoxic- appearing. Agree with management above. Follow cultures. Continue Rocephin, adjust as needed for sensitivities. Repeat cultures pending. PG Care Time/CCT Total # of Minutes Spent Total Time Spent with Patient: Total time spent is greater than 50% in coordination of care (as documented) at patient's floor/unit and/or counseling patient: Coding Level of Care Code 19918 Initial Inpt Care Lvl 3 Diagnoses Pyelonephritis N12 Bacteremia R78.81 Leukocytosis D72.829 Kidney disease N28.9 GERD (gastroesophageal reflux disease) K21.9 Anxiety F41.9 Hypomagnesemia E83.42
--- NOTE | 2022-01-07 15:43 | Electrocardiogram Report ---
Test Reason : Blood Pressure : / mmHG Vent. Rate : 071 BPM Atrial Rate : 071 BPM P-R Int : 142 ms QRS Dur : 090 ms QT Int : 406 ms P-R-T Axes : 054 015 061 degrees QTc Int : 441 ms Poor data quality, interpretation may be adversely affected Normal sinus rhythm Normal ECG When compared with ECG of 04-FEB-2021 08:57, No significant change was found Confirmed by Tripp Combs ([id number]) on 01/07/2022 3:43:11 PM Referred By: REFERRED SELF Confirmed By:Tripp Combs
[2022-01-07] MEDS ORDERED: SODIUM CHLORIDE 0.9% 1000ML 1,000 ML IV ONE (15:46)
--- NOTE | 2022-01-07 15:46 | Emergency Department Note ---
Impression & Plan Bacteremia, Abdominal pain, Pyelonephritis ED Provider Note NAME: LUPE DUBOIS AGE: 66 SEX: F : 1955 ARRIVES VIA: Walk-In INFORMANT: Patient ED PROVIDER(S): Rayray Anguiano DO CHIEF COMPLAINT: fevers, abdominal pain HPI: Patient is a 66-year-old female who presents the ER with a past medical history of hypertension, pneumonia, emphysema, gastroparesis, depression, and anxiety who was called back into the ER as she was seen within the past 48 hours. She was diagnosed with pyelonephritis and had blood cultures obtained. These came back positive for gram-negative bacteria with an infected UTI. Patient was discharged on antibiotics. She has been taking her antibiotics but is still having back pain. She notes she was having fevers of 103 up until yesterday. She still has dysuria urgency and frequency which has been present for the past 7 days but has been improving. No chest pain or shortness of breath. Back pain is bilateral and a throbbing pain ROS: See above HPI for pertinent positives & negatives. A total of 10 systems reviewed and were otherwise negative. PAST MEDICAL HISTORY:See Below PAST SURGICAL HISTORY:See Below FAMILY HISTORY:See Below SOCIAL HISTORY:See Below HOME MEDICATIONS:See Below ALLERGIES:See Below VITALS:See Below PHYSICAL EXAMINATION: GENERAL: Sitting up in bed, alert, well appearing, well nourished, no distress, non-toxic EYE EXAM: normal conjunctiva. OROPHARYNX: no exudate, no erythema, lips, buccal mucosa, and tongue normal and mucous membranes are moist NECK: supple, no nuchal rigidity, no adenopathy, non-tender LUNGS: Clear to auscultation. Normal chest wall mechanics HEART: no murmurs, S1 normal and S2 normal ABDOMEN: abdomen soft, non-tender, normo-active bowel sounds, no masses, no rebound or guarding. UPPER EXTREMITIES: upper extremities are grossly normal. LOWER EXTREMITIES: No pitting edema. NEURO EXAM: Normal sensorium, cranial nerves II-XII grossly intact, normal speech, no gross weakness of arms, no gross weakness of legs. MEDICAL DECISION MAKING: Patient is a 66-year-old female who presents the ER for gram-negative bacteremia with pyelonephritis and fevers. CT abdomen the showed pyonephritis. IV was established blood was obtained. Labs show leukocytosis of 12,000. No significant anemia.BMP with slightly elevated chloride at 109. Lactate was normal. LFTs were unremarkable. COVID was negative. Patient was given IV cefepime as well as IV fluids. She was updated bedside. Discussed with the hospitalist patient will be admitted for further work-up of her gram-negative bacteremia likely secondary to pyelonephritis and UTI. Triage Nursing notes reviewed. Limited review of prior medical records performed Vital Signs: reviewed and remarkable for no significant abnormalities Differential diagnosis: Differential diagnosis includes etiologies such as sepsis, UTI, pneumonia, metabolic, electrolyte abnormalities, cardiac sources, intracerebral event, toxicologic, neurological, as well as others were entertained. ER treatment provided: See below Diagnostics interpreted by me: ECG: Sinus rhythm rate 71 Normal axis No PVCs QTC 441 Cardiac Monitoring: An order was placed for continuous cardiac monitoring. The monitor shows a rate of 70 with sinus rhythm. Laboratory studies: As stated above and show below. Imaging studies: See below Consultation(s): Discussed with Dr. Callum Conway for further evaluation Procedures: none Critical Care: None Past Med/Surg History Medical History Arrhythmia "an extra beat" occasionally. 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 monitoring Depression GERD (gastroesophageal reflux disease) High blood pressure hx -- no problems since gastric bypass History of COVID-19 asymptomatic. tested positive 05/2020. no current issues. Kidney stones Osteoarthritis Peptic ulcer disease hx Pneumonia hx Seizure as a child, no problems since about age 12 Sleep apnea hx -- resolved since gastric bypass Surgical History H/O oral surgery expansion of the top palate History of cardiac cath ~2000. no stents History of colonoscopy History of cystoscopy History of dilatation and curettage History of esophagogastroduodenoscopy (EGD) History of gastric bypass History of repair of right rotator cuff Hx of lithotripsy WITH LASER AND STONE REMOVAL S/P rotator cuff repair left S/P tonsillectomy Status post surgery ileum ureteral replacement (Right Ureter) Family History Mother Anxiety Depression Diabetes Hypertension Cancer Bladder cancer Seizure Grandmother Diabetes Skin cancer Grandfather Lung disease Father Skin cancer Sister Skin cancer Denies family history of Ovarian cancer Prostate cancer Myocardial infarction Breast cancer Colorectal cancer Social History Smoking Status: Never smoker Cigarettes Per Day: 2000; Second Hand Exposure: No; Hx Alcohol Use: Yes Alcohol type: wine Hx Substance Use: No Preferred Language: Tanzanian Communication Ability: Effective 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: No Beliefs That Will Affect Care: None Current Living Situation: Spouse Feels Safe at Home: Yes Dental Care, Regularly: Yes Physical Activity Frequency: 1-2 Times per Week Assistive Devices: CPAP and Glasses Allergies Allergies Allergy/AdvReac Type Severity Reaction Status Date / Time amoxicillin Allergy Severe SEVERE Verified 10/30/21 20:45 HIVES Gadolinium-Containing Allergy Severe ANAPHYLAXIS Verified 10/30/21 20:45 Contrast Medi iodine Allergy Severe ANAPHYLAXIS Verified 10/30/21 20:45 aspirin Allergy Unknown NOT TO Verified 10/30/21 20:45 HAVE DUE TO GASTRIC ULCER/LOW KIDNEY FUNCTION sulfamethoxazole Allergy Unknown RASH Verified 10/30/21 20:45 trimethoprim Allergy Unknown RASH Verified 10/30/21 20:45 ciprofloxacin [From Cipro] Allergy Skin Verified 10/30/21 20:45 mottling Latex, Natural Rubber AdvReac Mild Irritation Verified 10/30/21 20:45 Home Meds Home Medications Medication Instructions Recorded Confirmed cholecalciferol (vitamin D3) 50 2,000 units PO QAM #30 caps 12/08/18 10/30/21 mcg (2,000 unit) capsule multivitamin 1 tab PO BID 12/08/18 10/30/21 cyanocobalamin (vitamin B-12) 1,000 mcg subcut MONTHLY 12/15/18 10/30/21 1,000 mcg/mL injection kit citalopram 40 mg tablet 20 mg PO QAM 03/07/19 10/30/21 cetirizine 10 mg tablet 10 mg PO HS PRN Allergy Symptoms 03/26/19 10/30/21 #30 tabs Previous Rx's Medication Instructions Recorded pantoprazole 40 mg tablet,delayed 40 mg PO BID #60 tabs 08/16/19 release betamethasone dipropionate 0.05 % 1 applic topical DAILY #45 grams 06/24/21 topical ointment clobetasol 0.05 % topical ointment 1 applic topical BID #30 grams 10/02/21 Saccharomyces boulardii 250 mg 250 mg PO BID #20 caps 10/30/21 capsule (Florastor) nitrofurantoin macrocrystal 100 mg 100 mg PO BID #10 caps 10/30/21 capsule cefdinir 300 mg capsule 300 mg PO BID 7 days #14 caps 01/07/22 Results & Data (ED) Vital Signs Vital Signs - 24 hr 01/07/22 14:08 01/07/22 14:42 01/07/22 14:42 Temperature 37.0 C Temperature Source Oral Pulse Rate 68 Pulse Rhythm Regular Pulse Strength Normal Respiratory Rate 20 18 Respiratory Effort / Characteristics Non-Labored Spontaneous Non-Labored Respiratory Depth Normal Respiratory Pattern Regular Blood Pressure 121/74 Blood Pressure Mean 89 Pulse Oximetry 95 96 Oxygen Delivery Method Room Air Room Air Sepsis Recent Fever Within 48 Hours No Sepsis New/Unexplained Change in Mental Status N/A Sepsis Action Taken by Nursing No Action Required Laboratory Data Result diagrams: 01/07/22 14:38 01/07/22 14:38 Lab Results 01/07/22 01/07/22 01/07/22 Range/Units 14:38 14:38 14:38 WBC 12.68 H (4.8-10.8) K/ul RBC 4.11 (3.93-5.22) M/uL Hgb 13.0 (12.0-16.0) g/dl Hct 39.7 (34.1-44.9) % MCV 96.6 (80.0-100.0) fL MCH 31.6 (25.0-34.0) pg MCHC 32.7 (32.0-36.0) g/dL RDW Std Deviation 43.4 (36.4-46.3) fL RDW Coeff of Efren 12.3 (11.5-14.5) % Plt Count 168 (130-400) K/uL MPV 11.2 (9.4-12.3) fL Immature Gran % (Auto) 0.5 % Neut % (Auto) 82.5 % Lymph % (Auto) 8.7 % [place] % (Auto) 7.3 % Eos % (Auto) 0.6 % Baso % (Auto) 0.4 % Neut # (Auto) 10.46 H (1.4-6.5) K/uL Lymph # (Auto) 1.10 L (1.2-3.4) K/uL [place] # (Auto) 0.93 H (0.24-0.82) K/uL Eos # (Auto) 0.08 (0-0.50) K/uL Baso # (Auto) 0.05 (0-0.2) K/uL Immature Gran # (Auto) 0.06 H (0.00-0.02) K/uL PT 11.6 (9.0-12.0) Seconds INR 1.1 (0.9-1.1) APTT 30.6 (21.0-31.0) Seconds PTT Ratio 1.1 Sodium 138 (136-145) mmol/L Potassium 3.8 (3.5-5.1) mmol/L Chloride 109 H (98-107) mmol/L Carbon Dioxide 20 L (21-32) mmol/L Anion Gap 9 (3-11) BUN 17 (6-23) mg/dl Creatinine 1.28 H (0.6-1.2) mg/dl Est Cr Clr Drug Dosing 42.7 ml/min Est GFR ( Amer) 51.2 ml/min Est GFR (Non-Af Amer) 44.1 ml/min BUN/Creatinine Ratio 13.3 (10-20) Glucose 205 H (70-99(Fasting)) mg/dl Lactate (0.4-2.0) mmol/L Calcium 8.7 (8.5-10.1) mg/dl Magnesium 1.6 L (1.7-2.4) mg/dl Total Bilirubin 0.6 (0.2-1.0) mg/dl AST 17 (13-39) U/L ALT 14 (7-52) U/L Alkaline Phosphatase 69 (34-104) U/L Total Protein 6.9 (6.0-8.3) gm/dl Albumin 3.9 (3.4-5.0) gm/dl Globulin 3.0 (2.5-4.0) gm/dl Albumin/Globulin Ratio 1.3 (0.9-2) SARS-CoV-2, RNA, NAAT (NEGATIVE) 01/07/22 01/07/22 Range/Units 14:38 14:46 WBC (4.8-10.8) K/ul RBC (3.93-5.22) M/uL Hgb (12.0-16.0) g/dl Hct (34.1-44.9) % MCV (80.0-100.0) fL MCH (25.0-34.0) pg MCHC (32.0-36.0) g/dL RDW Std Deviation (36.4-46.3) fL RDW Coeff of Efren (11.5-14.5) % Plt Count (130-400) K/uL MPV (9.4-12.3) fL Immature Gran % (Auto) % Neut % (Auto) % Lymph % (Auto) % [place] % (Auto) % Eos % (Auto) % Baso % (Auto) % Neut # (Auto) (1.4-6.5) K/uL Lymph # (Auto) (1.2-3.4) K/uL [place] # (Auto) (0.24-0.82) K/uL Eos # (Auto) (0-0.50) K/uL Baso # (Auto) (0-0.2) K/uL Immature Gran # (Auto) (0.00-0.02) K/uL PT (9.0-12.0) Seconds INR (0.9-1.1) APTT (21.0-31.0) Seconds PTT Ratio Sodium (136-145) mmol/L Potassium (3.5-5.1) mmol/L Chloride (98-107) mmol/L Carbon Dioxide (21-32) mmol/L Anion Gap (3-11) BUN (6-23) mg/dl Creatinine (0.6-1.2) mg/dl Est Cr Clr Drug Dosing ml/min Est GFR ( Amer) ml/min Est GFR (Non-Af Amer) ml/min BUN/Creatinine Ratio (10-20) Glucose (70-99(Fasting)) mg/dl Lactate 1.3 (0.4-2.0) mmol/L Calcium (8.5-10.1) mg/dl Magnesium (1.7-2.4) mg/dl Total Bilirubin (0.2-1.0) mg/dl AST (13-39) U/L ALT (7-52) U/L Alkaline Phosphatase (34-104) U/L Total Protein (6.0-8.3) gm/dl Albumin (3.4-5.0) gm/dl Globulin (2.5-4.0) gm/dl Albumin/Globulin Ratio (0.9-2) SARS-CoV-2, RNA, NAAT NEGATIVE (NEGATIVE) Administered Medications Discontinued Medications Cefepime HCl (Maxipime) 2,000 mg in 20 mls @ 5 mls/min IV NOW STA; Protocol Stop: 01/07/22 14:16 Last Admin: 01/07/22 14:35 Dose: 5 mls/min Documented By: KV Imaging Data Radiologist's Impression: Chest X-Ray 01/07/22 14:13 XR chest 1V portable CLINICAL HISTORY: SEPSIS TECHNIQUE: Single frontal radiograph of the chest was obtained. Comparison: Comparison is made to chest radiograph 02/04/2021 FINDINGS: No lines and tubes are seen. The cardiomediastinal silhouette is normal. Calcified granulomata are seen. No evidence of pleural effusion or pneumothorax. IMPRESSION: No acute abnormalities and in particular no evidence of pneumonia. ACT 112: Negative or not required by law. Electronically signed by: Kermit Keller M.D. 01/07/2022 2:29 PM Discharge Plan Visit Data Chief Complaint: Infection Stated Complaint: TOLD TO COME BACK, BLOOD INFECTION ED Provider: Rayray Anguiano Discharge Problem: Bacteremia, Abdominal pain, Pyelonephritis Forms Stand Alone Forms: [facility] Prescriptions Prescriptions: No Action pantoprazole 40 mg tablet,delayed release (DR/EC) 40 mg PO BID Qty: 60 5RF nitrofurantoin macrocrystal 100 mg capsule 100 mg PO BID Qty: 10 0RF Rx Instructions: must administer with a meal/food betamethasone dipropionate 0.05 % ointment 1 applic TOP DAILY Qty: 45 0RF Rx Instructions: Apply to areas of the hands at bedtime for up to 2 weeks as needed for flaring. multivitamin tablet 1 tab PO BID cholecalciferol (vitamin D3) 2,000 unit capsule 2,000 units PO QAM Qty: 30 cyanocobalamin (vitamin B-12) 1,000 mcg/mL kit 1,000 mcg SQ MONTHLY cetirizine 10 mg tablet 10 mg PO HS PRN (Reason: Allergy Symptoms) Qty: 30 clobetasol 0.05 % ointment 1 applic topical BID Qty: 30 1RF citalopram 40 mg tablet 20 mg PO QAM Saccharomyces boulardii [Florastor] 250 mg capsule 250 mg PO BID Qty: 20 0RF Rx Instructions: swallow whole cefdinir 300 mg capsule 300 mg PO BID 7 Days Qty: 14 0RF Referrals Referrals: Elisabeth Mckenna CRNP [Primary Care Provider] -
[2022-01-07] MEDS ORDERED: ALUMINUM/MAGNESIUM SUSP 30 ML UDC PO PRN (18:15)
[2022-01-07] MEDS ORDERED: ACETAMINOPHEN 325 MG TAB PO PRN (18:15)
[2022-01-07] MEDS ORDERED: MAGNESIUM HYDROXIDE SUSP 30 ML UDC PO PRN (18:15)
[2022-01-07] MEDS ORDERED: ONDANSETRON INJ 2 MG/ML 2 ML VIAL IV PRN (18:15)
[2022-01-07] MEDS: MAGNESIUM SULFATE / D5W 1 GM/100 ML BAG IV SCH ×2 (18:35→20:33)
[2022-01-07] MEDS: SODIUM CHLORIDE 0.9% 1000ML 1,000 ML IV SCH (18:35)
[2022-01-07] MEDS: KETOROLAC TROMETHAMINE 15 MG/ML VIAL IV PRN (20:34)
[2022-01-07] MEDS: PANTOprazole 40 MG TAB PO SCH (21:01)
[2022-01-07] MEDS ORDERED: cefTRIAXone SODIUM 2,000 MG/70 ML BAG IV SCH (23:00)
[2022-01-08] MEDS: KETOROLAC TROMETHAMINE 15 MG/ML VIAL IV PRN (05:37)
[2022-01-08] MEDS: SODIUM CHLORIDE 0.9% 1000ML 1,000 ML IV SCH ×3 (05:38→22:09)
[2022-01-08 07:53] LABS: Basophils # (auto) 0.04 K/uL (0-0.2); Basophils % (auto) 0.5 %; Eosinophils # (auto) 0.13 K/uL (0-0.50); Eosinophils % (auto) 1.6 %; Hematocrit (blood only) 35.9 % (34.1-44.9); Hemoglobin 11.8 g/dl (12.0-16.0); Immature Granulocytes # (auto) 0.04 K/uL (0.00-0.02); Immature Granulocytes % (auto) 0.5 %; Lymphocytes # (auto) 0.86 K/uL (1.2-3.4); Lymphocytes % (auto) 10.8 %; Mean Corpuscular Hemoglobin 31.9 pg (25.0-34.0); Mean Corpuscular Hgb Conc 32.9 g/dL (32.0-36.0); Mean Platelet Volume 10.7 fL (9.4-12.3); Monocytes # (auto) 0.65 K/uL (0.24-0.82); Monocytes % (auto) 8.2 %; Neutrophils # (auto) 6.23 K/uL (1.4-6.5); Neutrophils % (auto) 78.4 %; Platelet Count 135 K/uL (130-400); RDW Coefficient of Variation 12.4 % (11.5-14.5); RDW Standard Deviation 44.4 fL (36.4-46.3); White Blood Count 7.95 K/ul (4.8-10.8)
[2022-01-08] MEDS ORDERED: CEFEPIME 2,000 MG in SYRINGE 0 ML IV SCH (08:00)
[2022-01-08 08:17] LABS: BUN Creatinine Ratio 11.7 (10-20); Calcium 7.9 mg/dl (8.5-10.1); Creatinine Clr Calc Pharmacy 42.7 ml/min; Est GFR (African American) 51.2 ml/min; Est GFR (Non-African American) 44.1 ml/min; Magnesium 2.1 mg/dl (1.7-2.4); Potassium 3.9 mmol/L (3.5-5.1)
[2022-01-08] MEDS: PANTOprazole 40 MG TAB PO SCH ×2 (08:22→21:55)
[2022-01-08] MEDS: CITALOPRAM 20 MG TAB PO SCH (08:22)
--- NOTE | 2022-01-08 14:06 | Hospitalist Progress Note ---
Date of Service January 08, 2022 Assessment & Plan (1) Pyelonephritis: Plan: - R sided pyelonephritis d/t GN UTI (biofire + klebsiella and enterobacter) - Remains on IVF of NS at 125 ml/hr - will cap at this time - APAP + Ketorolac as needed for pain - Receiving Ceftriaxone; however, concern for this strain of Klebsiella for resistance to AmpC therefore changed back to Cefepime - Only option for oral abx therapy would be to convert to Cipro * Discussed hypersensitivity/questionable reaction with state fire marshal, feels that we can do trial of Cipro 500mg tablet and monitor for reaction * Will stop Cefepime, start on Cipro 500mg x1 this evening at 2000 * Monitor closely for reaction (2) Bacteremia: Plan: - GN bacteremia secondary to UTI - Antibiotics as above - Repeat blood cultures drawn today by ED but not necessary - Would treat given her pyelo x 14 days, can convert to oral upon d/c (3) Leukocytosis: Plan: - Mild with left shift - Treatment as outlined above, wbc normalized today (4) Kidney disease: Plan: - CKD Stage 3, stable and at baseline (5) GERD (gastroesophageal reflux disease): Plan: - Continue Protonix (6) Anxiety: Plan: - Continue Citalopram (7) Hypomagnesemia: Plan: - Repleted/normalized Plan Interventions as outlined above. Trial of Cipro starting this evening. If tolerates, will d/c with total of 14 day course of abx for bacteremia + pyelo. If develops reaction, will treat with Benadryl and plan to place a midline and treat with Ertapenem. Pt agreeable to plan. Plan has been d/w Dr. Ladan Hicks. Admission and Anticipated Discharge Date Admission Date: January 07, 2022 Subjective Patient seen on daily rounds this morning. She reports feeling better today. Last fever documented was at 1830 on 01/07 of 39C, afebrile since. Tolerating oral intake. Flank pain improved. No n/v. Reports a past history of a mild rash and maybe hives after taking Cipro but this was 10-15 years ago. She verbalizes no other complaints/concerns. Review of Systems Review of Systems: All systems reviewed and are unremarkable except as noted in HPI and below. Denies headache, nasal congestion, sore throat, cough, chest pain, shortness of breath, palpitations, orthopnea, PND, abdominal pain, n/v/d, constipation, dysuria, hematuria, frequency, joint pain or swelling, easy bruising or bleeding, skin lesions or rashes. Physical Exam Physical Exam: GENERAL: 66 yo Well-developed, well-nourished WF. Nontoxic, NAD. LUNGS: Clear to auscultation bilaterally. No accessory muscle use. No W/R/R. CARDIOVASCULAR: Regular rate and rhythm. No M/G/R. No JVD. ABDOMEN: Soft, non-tender and non-distended. No palpable masses. Bowel sounds normoactive x 4 quad. +CVA tenderness on R. EXTREMITIES: No edema. Non-tender. Peripheral pulses +2/4. NEUROLOGIC: A&O x3. No focal neurological deficits. CN II-XII grossly intact. PSYCHIATRIC: Cooperative. Appropriate mood and affect. SKIN: Warm, dry, intact. No rashes or lesions. Results & Data Results & Data ([facility]) Vital Signs (Past 12 Hours) Vital Signs Temp Pulse Resp BP Pulse Ox O2 Del Method 01/08/22 07:08 36.9 C 65 16 128/81 98 Room Air Laboratory Results 01/08/22 07:30 01/08/22 07:30 PG Care Time/CCT Total # of Minutes Spent Total Time Spent with Patient: Total time spent is greater than 50% in coordination of care (as documented) at patient's floor/unit and/or counseling patient: Coding Level of Care Code 17199 Subseq Hosp Care Lvl 2 Diagnoses Pyelonephritis N12 Bacteremia R78.81 Leukocytosis D72.829 Kidney disease N28.9 GERD (gastroesophageal reflux disease) K21.9 Anxiety F41.9 Hypomagnesemia E83.42
[2022-01-08] MEDS: CIPROFLOXACIN 500 MG TAB PO SCH (20:56)
[2022-01-09] MEDS: SODIUM CHLORIDE 0.9% 1000ML 1,000 ML IV SCH (05:23)
[2022-01-09 07:01] LABS: Basophils # (auto) 0.03 K/uL (0-0.2); Basophils % (auto) 0.6 %; Eosinophils # (auto) 0.22 K/uL (0-0.50); Eosinophils % (auto) 4.2 %; Hematocrit (blood only) 33.7 % (34.1-44.9); Hemoglobin 11.1 g/dl (12.0-16.0); Immature Granulocytes # (auto) 0.04 K/uL (0.00-0.02); Immature Granulocytes % (auto) 0.8 %; Lymphocytes # (auto) 0.96 K/uL (1.2-3.4); Lymphocytes % (auto) 18.5 %; Mean Corpuscular Hemoglobin 31.9 pg (25.0-34.0); Mean Corpuscular Hgb Conc 32.9 g/dL (32.0-36.0); Mean Corpuscular Volume 96.8 fL (80.0-100.0); Monocytes % (auto) 13.5 %; Neutrophils # (auto) 3.23 K/uL (1.4-6.5); Neutrophils % (auto) 62.4 %; Platelet Count 142 K/uL (130-400); RDW Coefficient of Variation 12.3 % (11.5-14.5); Red Blood Count 3.48 M/uL (3.93-5.22); White Blood Count 5.18 K/ul (4.8-10.8)
[2022-01-09 07:28] LABS: BUN Creatinine Ratio 11.2 (10-20); Calcium 8.1 mg/dl (8.5-10.1); Creatinine Clr Calc Pharmacy 47.2 ml/min; Est GFR (African American) 57.6 ml/min; Est GFR (Non-African American) 49.7 ml/min
[2022-01-09] MEDS: CITALOPRAM 20 MG TAB PO SCH (09:19)
[2022-01-09] MEDS: PANTOprazole 40 MG TAB PO SCH (09:19)
[2022-01-09] MEDS: CIPROFLOXACIN 500 MG TAB PO SCH (09:19)
--- NOTE | 2022-01-09 18:38 | Discharge Summary ---
Date of Service January 09, 2022 Admission HPI Per Admitting Provider Gavi Colbert is a 66 yo WF w/ a h/o R ureteral reconstructive surgery done 15 years ago in [place], renal calculi, UTIs, s/p gastric bypass, GERD and depression/anxiety who presented to the ER today as instructed by EMD d/t "blood infection." Pt notes about 1 week ago started having symptoms of UTI including dysuria and frequency. She had left over Macrobid from a prior infection that she didn't end up taking and decided to start taking it. She states that despite that, she continued to feel poorly and began having right sided flank pain. Yesterday, increased malaise, chills, and significantly worsening flank pain which prompted her to come to the ER. Her ED w/u demonstrated a normal wbc count but she was febrile with a temp of 103F with a grossly infected UA. In addition, she underwent CT a/p which showed perinephric fat stranding on the right. She was medicated with a dose of Rocephin and discharged home on a course of Cefdinir. Pt states that she got home around 0200, still felt poorly today, but she took some Tylenol and slept. She was contacted by the hospital and informed she needed to return to the EMD d/t positive blood cultures. Repeat blood work in the ED demonstrates a wbc count of 12.68 with left shift. She was medicated with a dose of Cefepime and referred for admission. Principal Diagnosis Pyelonephritis and bacteremia Discharge Exam General: No acute distress HEENT: Normal cephalic atraumatic Neck: Normal visual inspection, negative JVD, trachea midline Cardiac: Regular rate and rhythm, normal S1, normal S2, I did not appreciate any murmurs rubs or gallops Respiratory: Clear to auscultation bilaterally GI: CVA tenderness positive on right, neg on left Otherwise normal bowel sounds, soft, nontender, nondistended MSK: Moves all extremities Skin: No new rashes Neuro: Alert and oriented Psych: Cooperative Discharge Data Allergies Allergy/AdvReac Type Severity Reaction Status Date / Time amoxicillin Allergy Severe SEVERE Verified 01/07/22 16:05 HIVES Gadolinium-Containing Allergy Severe ANAPHYLAXIS Verified 01/07/22 16:05 Contrast Medi iodine Allergy Severe ANAPHYLAXIS Verified 01/07/22 16:05 aspirin Allergy Unknown NOT TO Verified 01/07/22 16:05 HAVE DUE TO GASTRIC ULCER/LOW KIDNEY FUNCTION sulfamethoxazole Allergy Unknown RASH Verified 01/07/22 16:05 trimethoprim Allergy Unknown RASH Verified 01/07/22 16:05 ciprofloxacin [From Cipro] Allergy Skin Verified 01/07/22 16:05 mottling Latex, Natural Rubber AdvReac Mild Irritation Verified 01/07/22 16:05 Consultations 01/07/22 14:48 ED Decision to Admit Stat Hospital Course (1) Pyelonephritis: - R sided pyelonephritis d/t GN UTI (biofire + klebsiella and enterobacter) - APAP + Ketorolac as needed for pain - Receiving Ceftriaxone; however, concern for this strain of Klebsiella for resistance to AmpC therefore changed back to cefepime - Only option for oral abx therapy would be to convert to Cipro * Discussed hypersensitivity/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 Plan for 7 additional days of therapy for total of 10 day course. (2) Bacteremia: Due to pyelonephritis. (3) Leukocytosis: - Mild with left shift - Treatment as outlined above, wbc normalized today (4) Kidney disease: - CKD Stage 3, stable and at baseline (5) GERD (gastroesophageal reflux disease): - Continue Protonix (6) Anxiety: - Continue Citalopram (7) Hypomagnesemia: - Repleted/normalized Total Time Total Time Spent Total Time Spent (In Minutes): 35 Discharge Plan Discharge Items Patient Disposition: Home - Self-Care Reason For Visit: BACTEREMIA, PYELONEPHRITIS Discharge Diagnosis: Kidney infection Activity: Resume your previous activity Non-emergency contact: Primary Care Provider Call non-emergency contact if: your symptoms worsen and your temperature is above 101 Follow-up/Referrals: Elisabeth Mckenna CRNP [Primary Care Provider] - 01/14/22 10:10 am Diet: Regular Addtl Attending Provider Instructions: Ms. Colbert, You were admitted to the hospital with pyelonephritis which is an infection of the kidney that comes from bacteria in the bladder. Luckily with antibiotics, this is treated very well. Please take the Ciprofloxacin for 7 more days. Your first dose will be tonight before bedtime. Please note that you do *not* need to also take the prior antibiotic. The Ciprofloxacin is the best option. Please follow up with your PCP in 1-2 weeks to be sure you are doing well. Please call your PCP or come to the hospital if you have more fevers, chills, worsening pain, nausea, vomiting, or other concerning symptoms. Pending Studies at Discharge: No Stand-Alone Forms: [facility] [employer], Smoking Cessation Medications and DC Order Prescriptions: New ciprofloxacin HCl 500 mg Tablet 500 mg PO BID Qty: 14 0RF Continued pantoprazole 40 mg tablet,delayed release (DR/EC) 40 mg PO BID Qty: 60 5RF betamethasone dipropionate 0.05 % ointment 1 applic TOP DAILY Qty: 45 0RF Rx Instructions: Apply to areas of the hands at bedtime for up to 2 weeks as needed for flaring. multivitamin tablet 1 tab PO BID cholecalciferol (vitamin D3) 2,000 unit capsule 2,000 units PO QAM Qty: 30 cyanocobalamin (vitamin B-12) 1,000 mcg/mL kit 1,000 mcg SQ MONTHLY cetirizine 10 mg tablet 10 mg PO HS PRN (Reason: Allergy Symptoms) Qty: 30 citalopram 40 mg tablet 20 mg PO QAM Discontinued cefdinir 300 mg capsule 300 mg PO BID 7 Days Qty: 14 0RF Discharge Orders: Discharge Order (Routine); Ordered 01/09/22 Ordered By: Karl Crowell/Other Patient Handouts: ED Bacteremia, Suspected (Adult), ED Pyelonephritis, Female (Adult) Admission Data Admit Date/Time: 01/07/22 14:59 Attending Provider: Karl Hicks Admit Provider: Callum Rome Primary Care Provider: Elisabeth Mckenna Other Providers: Callum Rome Other Interventions: Discharge Summary Assessment (RN) Last Done: 01/09/22 11:26 Coding Level of Care Code D/C DAY MANAGEMENT >30 MINS Diagnoses Pyelonephritis N12 Bacteremia R78.81 Leukocytosis D72.829 Kidney disease N28.9 GERD (gastroesophageal reflux disease) K21.9 Anxiety F41.9 Hypomagnesemia E83.42
== END 2022-01-09 12:12 | disposition home or self-care (01) | DRG 872 ==
LOC: ED 14:04 → SUATTDRO 14:59 → EDINP 14:59 → 3E 17:19

== ENCOUNTER 2023-01-16 05:08 | Observation (INO) ==
--- NOTE | 2022-12-15 10:40 | PAT Medication Instructions ---
Medication Instructions Date of Service December 15, 2022 Home Medications Medication Instructions Recorded betamethasone dipropionate 0.05 % 1 applic topical DAILY #45 grams 06/24/21 topical ointment ciprofloxacin HCl 500 mg tablet 500 mg PO BID #14 tabs 01/09/22 clobetasol 0.05 % topical ointment 1 applic topical BID #30 grams 09/22/22 cholecalciferol (vitamin D3) 50 mcg (2,000 unit) capsule 2,000 units PO QAM multivitamin 1 tab PO QAM cyanocobalamin (vitamin B-12) 1,000 mcg/mL injection kit 1,000 mcg subcut MONTHLY cetirizine 10 mg tablet 10 mg PO HS PRN betamethasone dipropionate 0.05 % topical ointment 1 applic topical DAILY ciprofloxacin HCl 500 mg tablet 500 mg PO BID clobetasol 0.05 % topical ointment 1 applic topical BID escitalopram oxalate 10 mg tablet 10 mg PO QAM qyaanc-pcznnee-jbsh kol-lecith 50 mg-150 mg-250 mg-50 mg tablet 1 tab PO QAM lactobacillus combination no.4 3 billion cell capsule (Probiotic) 3,000 mmu cells PO QAM pantoprazole 40 mg tablet,delayed release 40 mg PO QAM Continue as directed cyanocobalamin (vitamin B-12) 1,000 mcg/mL injection kit 1,000 mcg subcut MONTHLY ciprofloxacin HCl 500 mg tablet 500 mg PO BID STOP taking 2 weeks before surgery (or as soon as possible if surgery is within 2 weeks) pkxwxb-xnofjpw-cquc kol-lecith 50 mg-150 mg-250 mg-50 mg tablet 1 tab PO QAM STOP taking 24 hours before surgery betamethasone dipropionate 0.05 % topical ointment 1 applic topical DAILY clobetasol 0.05 % topical ointment 1 applic topical BID DO NOT take the morning of surgery cholecalciferol (vitamin D3) 50 mcg (2,000 unit) capsule 2,000 units PO QAM multivitamin 1 tab PO QAM lactobacillus combination no.4 3 billion cell capsule (Probiotic) 3,000 mmu cells PO QAM Take morning of surgery With a small sip of water, OTHERWISE NOTHING TO EAT OR DRINK AFTER MIDNIGHT: escitalopram oxalate 10 mg tablet 10 mg PO QAM pantoprazole 40 mg tablet,delayed release 40 mg PO QAM Take evening before surgery cetirizine 10 mg tablet 10 mg PO HS PRN(if needed) ciprofloxacin HCl 500 mg tablet 500 mg PO BID Other Notes If you have any questions please call us at [phone] or [phone] or [phone] or [phone]
--- NOTE | 2022-12-22 10:12 | Anesthesiology Consultation ---
Date of Service December 22, 2022 Assessment & Plan (1) Encounter for pre-operative examination: - COVID screening: Per assessment on 12/22: No known COVID-19 positive contacts or current COVID-19 related symptoms. No recent Covid positive test result. - Outpatient joint assessment: Pt currently scheduled for inpatient pathway. If surgeon requests review for outpatient joint pathway, patient is an acceptable candidate for outpatient joint program from anesthesia standpoint pending surgeon's office assessment that patient is motivated, has good support and completes Same Day Joint Program preop requirements. - S/P Right shoulder arthroscopy (02/28/21): LMA#4 + [place] [facility] [place] Review Chart Review: Acceptable Risk for Surgery and Patient seen in Pre Admission Testing Teaching & Discussion Pre-Anesthesia Teaching/Discussion Notes: Instructed NPO after midnight before surgery,except medications with 15 cc of water. Medication instructions provided according to the PAT guidelines. History Surgery Operation Date: 01/16/23 11:35 Proposed Procedures p Right Anterior Total Hip Arthroplasty - Gerard Sen, Height/Weight Height: 5 ft 3 in Weight: 76.4 kg Allergies Allergy/AdvReac Type Severity Reaction Status Date / Time amoxicillin Allergy Severe Severe Verified 12/22/22 09:06 hives Gadolinium-Containing Allergy Severe Anaphylaxis Verified 12/22/22 09:06 Contrast Medi iodine Allergy Severe Anaphylaxis Verified 12/22/22 09:06 aspirin Allergy Unknown Advised to Verified 12/22/22 09:06 avoid d/t gastric ulcer/low kidney function sulfamethoxazole Allergy Unknown Rash Verified 12/22/22 09:06 trimethoprim Allergy Unknown Rash Verified 12/22/22 09:06 ciprofloxacin [From Cipro] Allergy Skin Verified 12/12/22 13:13 mottling Latex, Natural Rubber AdvReac Mild Irritation Verified 12/12/22 13:13 Medications Home Medications Medication Instructions Recorded Confirmed Last Taken cholecalciferol (vitamin D3) 50 2,000 units PO QAM #30 caps 12/08/18 12/12/22 08/12/21 mcg (2,000 unit) capsule multivitamin 1 tab PO QAM 12/08/18 12/12/22 08/12/21 cyanocobalamin (vitamin B-12) 1,000 mcg subcut MONTHLY 12/15/18 12/12/22 08/12/21 1,000 mcg/mL injection kit cetirizine 10 mg tablet 10 mg PO HS PRN Allergy Symptoms 03/26/19 12/12/22 08/12/21 #30 tabs betamethasone dipropionate 0.05 % 1 applic topical DAILY #45 grams 06/24/21 12/12/22 08/12/21 topical ointment clobetasol 0.05 % topical ointment 1 applic topical BID #30 grams 09/22/22 12/12/22 Unknown escitalopram oxalate 10 mg tablet 10 mg PO QAM 12/12/22 12/12/22 Unknown buacou-futllzp-xttp kol-lecith 50 1 tab PO QAM 12/12/22 12/12/22 Unknown mg-150 mg-250 mg-50 mg tablet lactobacillus combination no.4 3 3,000 mmu cells PO QAM 12/12/22 12/12/22 Unknown billion cell capsule (Probiotic) pantoprazole 40 mg tablet,delayed 40 mg PO QAM 12/12/22 12/12/22 Unknown release Past Medical History Medical History Anxiety Arrhythmia occasional "an extra beat" No significant arrhythmia hx noted per review of available PCP records, NSR without arrhythmia on most recent available EKG 10/22/22* Chronic kidney disease Stage 3, monitoring Depression GERD (gastroesophageal reflux disease) High blood pressure Hx, no issues since gastric bypass History of COVID-19 05/2020, no current issues Kidney stones Osteoarthritis Peptic ulcer disease hx Seizure As a child, no issues since approximately age 12 Sleep apnea CPAP (compliant) Exercise / Class Metabolic Activity II 4-5 Yardwork/Stairs/Walk up hill (one FS (no CP, no SOB)) Past Family History Family History Mother Anxiety Depression Diabetes Hypertension Cancer Bladder cancer Seizure Grandmother Diabetes Skin cancer Grandfather Lung disease Father Skin cancer Sister Skin cancer Denies family history of Ovarian cancer Prostate cancer Myocardial infarction Breast cancer Colorectal cancer Past Surgical History Surgical History H/O oral surgery expansion of the top palate History of cardiac cath Approximately 2000- no stents History of colonoscopy History of cystoscopy History of dilatation and curettage History of esophagogastroduodenoscopy (EGD) History of gastric bypass History of repair of right rotator cuff Right shoulder arthroscopy (02/28/21): LMA#4 + [place] [facility] [place] Hx of lithotripsy with laser + stone extraction S/P rotator cuff repair left S/P tonsillectomy Status post surgery ileum ureteral replacement (Right Ureter) Past Anesthesia History No Hx of Anesthesia Complications and No Family Hx of Anesthesia Complications History of PONV No Hx of PONV and No Hx of Motion Sickness Social History Smoking Status: Former smoker tobacco type: cigarettes Do You Dip or Chew Tobacco: No Smoking End Date: Quit 20 years ago Hx Alcohol Use: Yes Alcohol type: wine alcohol intake frequency: 0-2 drinks per day (2 glasses wine/day) Hx Substance Use: No substance use type: does not use Review of Systems Patient denies chest pain, shortness of breath, dyspnea on exertion, fever, chills, cough, wheezing, palpitations. Physical Exam Vital Signs VITALS BP 126/85 P 67 TEMP 98.5 SP02 97%RA RESP 16 PHYSICAL Full cervical extension range of motion. Full TMJ range of motion. TMD 3 finger breaths Mallampati Score 2 Dentition: upper partial Lungs: clear throughout to auscultation Cardiac: regular rate and rhythm, no murmurs noted Spine: normal Carotid arteries: negative bruit Extremities: no LE edema Lab Results Anesthesia Preop Results Results Anesthesia Widget: WBC 4.83 K/ul (4.8-10.8) 12/22/22 Hgb 13.3 g/dl (12.0-16.0) 12/22/22 Hct 39.7 % (37.0-47.0) 12/22/22 Plt 195 K/uL (130-400) 12/22/22 Na 138 mmol/L (136-145) 12/22/22 K 4.5 mmol/L (3.5-5.1) 12/22/22 Cl 108 mmol/L (98-107) H 12/22/22 CO2 23 mmol/L (21-32) 12/22/22 BUN 20 mg/dl (6-23) 12/22/22 Creat 1.26 mg/dl (0.6-1.2) H 12/22/22 Glucose Level 81 mg/dl (70-99(Fasting)) 12/22/22 PT 10.8 Seconds (9.0-12.0) 12/22/22 PTT 28.1 Seconds (21.0-31.0) 12/22/22 INR 1.0 (0.9-1.1) 12/22/22 Blood Type A Positive 12/22/22 Antibody Screen NEGATIVE 12/22/22 Testing Electrocardiogram Date: 10/22/22 Findings: + NSR @ (66) Other Testing Chest CT Date: 08/15/22 No acute abnormalities. There is a small hiatal hernia, correlation for gastric reflux is recommended. A tiny pulmonary nodule as above. According to Fleischner criteria, no follow-up is required in low risk patients, in high-risk patients, a 12 month follow-up CT can be optionally performed.
--- NOTE | 2023-01-15 07:20 | History & Physical Report ---
Date of Service January 15, 2023 Assessment & Plan (1) Osteoarthritis of right hip: We will proceed with a right anterior total of arthroplasty. Postoperatively she will will be started on aspirin for DVT prophylaxis and kept overnight in the hospital for postop medical management. She plans to use energy physical therapy upon discharge. History of Present Illness Chief Complaint: Advanced osteoarthritis of the right hip. Primary Care Provider: NILS Vasquez Gavi is a pleasant 66-year-old female who has been dealing with chronic increasing right hip and groin pain. It really affects her quality of life on daily activities. She has had two injections from Dr. Lemons, which had given her significant relief with the wear off. The x-ray do show some mild arthritis. I send her for an MRI of her hip. MRI shows advanced osteoarthritis. After failing conservative treatment, she has elected proceed with a right anterior total of arthroplasty. Allergies Allergy/AdvReac Type Severity Reaction Status Date / Time amoxicillin Allergy Severe Severe Verified 12/22/22 09:06 hives Gadolinium-Containing Allergy Severe Anaphylaxis Verified 12/22/22 09:06 Contrast Medi iodine Allergy Severe Anaphylaxis Verified 12/22/22 09:06 aspirin Allergy Unknown Advised to Verified 12/22/22 09:06 avoid d/t gastric ulcer/low kidney function sulfamethoxazole Allergy Unknown Rash Verified 12/22/22 09:06 trimethoprim Allergy Unknown Rash Verified 12/22/22 09:06 ciprofloxacin [From Cipro] Allergy Skin Verified 12/12/22 13:13 mottling Latex, Natural Rubber AdvReac Mild Irritation Verified 12/12/22 13:13 Home Medications Medication Instructions Recorded Confirmed Type cholecalciferol (vitamin D3) 50 2,000 units PO QAM #30 caps 12/08/18 12/12/22 History mcg (2,000 unit) capsule multivitamin 1 tab PO QAM 12/08/18 12/12/22 History cyanocobalamin (vitamin B-12) 1,000 mcg subcut MONTHLY 12/15/18 12/12/22 History 1,000 mcg/mL injection kit cetirizine 10 mg tablet 10 mg PO HS PRN Allergy Symptoms 03/26/19 12/12/22 History #30 tabs betamethasone dipropionate 0.05 % 1 applic topical DAILY #45 grams 06/24/21 12/12/22 Rx topical ointment clobetasol 0.05 % topical ointment 1 applic topical BID #30 grams 09/22/22 12/12/22 Rx escitalopram oxalate 10 mg tablet 10 mg PO QAM 12/12/22 12/12/22 History vgpwig-ebmxdxs-zzaa kol-lecith 50 1 tab PO QAM 12/12/22 12/12/22 History mg-150 mg-250 mg-50 mg tablet lactobacillus combination no.4 3 3,000 mmu cells PO QAM 12/12/22 12/12/22 History billion cell capsule (Probiotic) pantoprazole 40 mg tablet,delayed 40 mg PO QAM 12/12/22 12/12/22 History release Past Med/Surg History Medical History Anxiety Arrhythmia occasional "an extra beat" No significant arrhythmia hx noted per review of available PCP records, NSR without arrhythmia on most recent available EKG 10/22/22* Chronic kidney disease Stage 3, monitoring Depression GERD (gastroesophageal reflux disease) High blood pressure Hx, no issues since gastric bypass History of COVID-19 05/2020, no current issues Kidney stones Osteoarthritis Peptic ulcer disease hx Seizure As a child, no issues since approximately age 12 Sleep apnea CPAP (compliant) Surgical History H/O oral surgery expansion of the top palate History of cardiac cath Approximately 2000- no stents History of colonoscopy History of cystoscopy History of dilatation and curettage History of esophagogastroduodenoscopy (EGD) History of gastric bypass History of repair of right rotator cuff Right shoulder arthroscopy (02/28/21): LMA#4 + PNB at [facility] [place] Hx of lithotripsy with laser + stone extraction S/P rotator cuff repair left S/P tonsillectomy Status post surgery ileum ureteral replacement (Right Ureter) Family History Mother Anxiety Depression Diabetes Hypertension Cancer Bladder cancer Seizure Grandmother Diabetes Skin cancer Grandfather Lung disease Father Skin cancer Sister Skin cancer Denies family history of Ovarian cancer Prostate cancer Myocardial infarction Breast cancer Colorectal cancer Social History Smoking Status: Former smoker Second Hand Exposure: No; Do You Dip or Chew Tobacco: No; Hx Alcohol Use: Yes Alcohol type: wine Hx Substance Use: No Preferred Language: Lithuanian Communication Ability: Effective Process Manager Required: No Beliefs That Will Affect Care: None Current Living Situation: Spouse Feels Safe at Home: Yes Dental Care, Regularly: Yes Physical Activity Frequency: 1-2 Times per Week Assistive Devices: CPAP, Denture - Upper and Glasses Review of Systems All systems reviewed & are unremarkable except as noted in HPI & below. Physical Exam On physical examination of right hip, she has pain with forced internal and external rotation. She has pain in her groin.. Constitutional WD/WN, vitals as above Eyes PERRL, conjunctivae normal, anicteric sclerae ENMT external ear and nose normal, oropharynx normal Neck trachea midline, no thyromegaly Respiratory normal respiratory effort, lungs clear to auscultation Cardiovascular RRR, no murmur, no edema Gastrointestinal (Abdomen) normal bowel sounds, soft, nontender, no hepatosplenomegaly Skin no rashes, warm and dry Psychiatric A+Ox3, euthymic affect Results & Data Results & Data Laboratory Results . Diagnostic Findings X-rays of the right hip do show some mild osteoarthritis with some joint space narrowing. MRI of the right hip shows more advanced osteoarthritis of the hip joint.. PG Care Time/CCT Total # of Minutes Spent Total Time Spent with Patient: Total time spent is greater than 50% in coordination of care (as documented) at patient's floor/unit and/or counseling patient: Coding Level of Care Code None Diagnoses Osteoarthritis of right hip M16.11
[2023-01-16] MEDS ORDERED: TRANEXAMIC ACID 1,000 MG **IV Pre-op IV SCH (06:00)
[2023-01-16] MEDS ORDERED: FAMOTIDINE 20 MG TAB PO SCH (06:00)
[2023-01-16] MEDS ORDERED: LR 60ML/HR IV SCH (06:00)
[2023-01-16] MEDS ORDERED: ACETAMINOPHEN 500 MG TAB PO SCH (06:00)
[2023-01-16] MEDS ORDERED: GABAPENTIN 600 MG DOSE PO SCH (06:00)
[2023-01-16] MEDS ORDERED: TRANEXAMIC ACID 1,000 MG **IV Intra-op IV SCH (06:00)
[2023-01-16] MEDS ORDERED: dexAMETHasone 4 MG TAB PO SCH (06:00)
[2023-01-16] MEDS ORDERED: LR 500ML BOLUS, THEN 15ML/HR IV SCH (06:00)
[2023-01-16] MEDS ORDERED: ceFAZolin 2000MG 2,000 MG/15 ML SYR IV SCH (06:00)
[2023-01-16] MEDS ORDERED: ORTHO JOINT MIX INFIL SCH (06:00)
[2023-01-16] MEDS ORDERED: BUPIVACAINE 0.5 % 5 MG/1 ML PF 10ML VIAL ONE (06:22)
[2023-01-16] MEDS ORDERED: fentaNYL citrate PF 100 MCG/2 ML VIAL IV PRN (06:29)
[2023-01-16] MEDS ORDERED: ePHEDrine sulfate 50 MG/ML AMP IV PRN (06:29)
[2023-01-16] MEDS ORDERED: ONDANSETRON INJ 2 MG/ML 2 ML VIAL IV PRN ×2 (06:29→09:47)
[2023-01-16] MEDS ORDERED: ATROPINE SULFATE 0.1 MG/ML 10ML SYR IV PRN (06:29)
[2023-01-16] MEDS ORDERED: ceFAZolin 2000MG 2,000 MG/15 ML SYR IV ONE (06:41)
[2023-01-16] MEDS ORDERED: ceFAZolin 2,000 MG/15 ML IV PUSH IV ONE (06:45)
--- NOTE | 2023-01-16 06:48 | History & Physical Bridge Note ---
Date of Service January 16, 2023 History & Physical Bridge Note I have examined the patient, reviewed the History & Physical and in the interval since the performance of the History & Physical I have noted the following changes of clinical significance: no changes noted
[2023-01-16] MEDS ORDERED: ORTHO JOINT ANESTHETIC ONE (07:13)
--- NOTE | 2023-01-16 08:16 | Operative Report ---
PG Post Operative Report Pre & Post Diagnosis Operation Date: 01/16/23 07:00 Pre-Op Diagnosis: Degenerative Joint Disease Right Hip Post-Op Diagnosis: Degenerative Joint Disease Right Hip I identified the patient and participated in the time-out.: Yes Procedure Operation Date: 01/16/23 07:00 Actual Procedures p Right Anterior Total Hip Arthroplasty(Right) - Gerard Sen DO Surgeon Gerard Sen DO Stroboscope Operator Gerard Kincaid PA-C Estimated Blood Loss 150 Findings Consistent with Post-Op Diagnosis Specimens Right femoral head Description of Procedure Implants used I used a ZimmerBiomet total hip arthroplasty system with a size 3 standard offset Avenir Complete stem, a 48 mm G7 cup with a 25mm screw, an E1 poly ethylene liner, a 32 mm ceramic head with a 0 neck. Gavi arrived at the hospital for the above procedure. She was seen in the preoperative holding area and the operative extremity was identified and signed. She was given a spinal anesthetic, a preoperative antibiotic, and TXA. She was then taken back to the operating room and laid on the table in the supine position. She was given basic sedation. The operative leg was secured to a Puristst leg positioner. The hip was then prepped and draped in sterile fashion. A timeout was done and the patient and the operative extremity was properly identified. An anterior approach was used. Dissection was taken down through the fascia and the tensor muscle belly was retracted laterally and the rectus was retracted medially. The circumflex vessels were identified and ligated. The capsule was then incised and tagged for later repair. The femoral neck was then cut and the femoral head was removed. The acetabulum was exposed. Time was spent doing a complete circumferential labral release. Sequential reaming of the acetabulum up to a size 47 reamer was done. Final reamings were done under fluoroscopy to ensure appropriate version. A Biomet 48 mm G7 cup was then impacted into place. A single 25 mm screw was placed. The E1 polyethylene liner was then snapped into place. Surrounding soft tissues were then injected with 100 cc of an orthopedic pain control cocktail. The proximal femur was then exposed. Sequential broaching up to a size 3 broach was done. Off that broach a size 32 head with a 0 neck was trialed. The hip was reduced and fluoroscopic images showed anatomic alignment of the implants in acceptable length. The broach was removed. The final size 3 standard offset Avenir Complete stem was then impacted into place. A ceramic 32 mm head with a 0 neck was then impacted onto the stem and the hip was reduced. Final fluoroscopic images showed anatomic alignment of the hip. The capsule was then closed with #1 Vicryl suture. A dilute betadyne lavage was then done for 3 minutes. The joint was then irrigated with normal saline solution. The fascia was closed with #1 PDS suture. Skin was closed with 2-0 Vicryl, narciso, and a Silverlon dressing. She was then transferred to a hospital bed and taken to the post anesthesia care unit in stable condition. She tolerated the procedure well. Gerard Kincaid PA-C, was present for the entire procedure. He was critical for patient positioning, prepping, draping, retraction exposure, wound closure and application of sterile dressing. I attest to the content of the Intraoperative Record and any orders documented therein. Any exceptions are noted below.
--- NOTE | 2023-01-16 08:29 | Fluoroscopy Report ---
FL hip RT 1V CLINICAL HISTORY: Right anterior total hip arthroplasty TECHNIQUE: 1 views were obtained with the C-arm in the OR with the above procedure. Total fluoroscopy time was 23 seconds. Radiation dose was 2.14 mGy. Comparison: Comparison is made to hip MRI 10/23/2022 FINDINGS/IMPRESSION: Intraoperative images were obtained of total hip arthroplasty. Please correlate with intraoperative fluoroscopy and operative report. ACT 112: Negative or not required by law. Electronically signed by: Kermit Keller M.D. 01/16/2023 8:27 AM
--- NOTE | 2023-01-16 09:41 | XRay Report ---
XR hip 1V RT w pelvis CLINICAL HISTORY: IN PACU - Post Surgical TECHNIQUE: 2 views of the right hip and single frontal view of the pelvis were obtained. Comparison: None available at the time of this dictation. FINDINGS: Patient is status post total hip arthroplasty with expected postsurgical changes including soft tissu e swelling and subcutaneous emphysema. IMPRESSION: Expected postoperative appearance status post placement of total hip arthroplasty. ACT 112: Negative or not required by law. Electronically signed by: Kermit Keller M.D. 01/16/2023 9:40 AM
[2023-01-16] MEDS ORDERED: NALOXONE HCL 0.4 MG/1 ML VIAL/CARP IV PRN (09:47)
[2023-01-16] MEDS ORDERED: MAGNESIUM HYDROXIDE SUSP 30 ML UDC PO PRN (09:47)
[2023-01-16] MEDS ORDERED: METOCLOPRAMIDE HCL INJ 5 MG/ML 2 ML VIAL IV PRN (09:47)
[2023-01-16] MEDS ORDERED: HYDROmorphone INJ 0.5 MG/0.5 ML SYR IV PRN (09:47)
[2023-01-16] MEDS ORDERED: bisacodyL 10 MG SUPP PR PRN (09:47)
[2023-01-16] MEDS ORDERED: oxyCODONE HCL IR 5 MG TAB (IMMEDIATE RELEASE) PO PRN (09:47)
--- NOTE | 2023-01-16 10:11 | Anesthesiology Progress Note ---
Date of Service January 16, 2023 Anesthesia Post Procedure Vital Signs Vital Signs: Temp Pulse Pulse Resp BP Pulse Ox O2 Del Method 01/16/23 10:04 97.7 F 66 16 145/79 H 94 Room Air 01/16/23 09:47 97.7 F 66 18 138/78 92 Room Air 01/16/23 09:30 98.6 F 69 14 140/80 95 Room Air 01/16/23 09:20 66 18 140/74 98 Oxymask 01/16/23 09:10 67 10 L 138/20 L 98 Oxymask 01/16/23 09:00 65 9 L 160/82 H 98 Oxymask 01/16/23 08:50 68 12 142/82 H 98 Oxymask 01/16/23 08:40 98.6 F 73 16 144/82 H 98 Oxymask 01/16/23 05:41 98.4 F 62 18 148 H Room Air O2 Flow Rate 01/16/23 10:04 01/16/23 09:47 01/16/23 09:30 01/16/23 09:20 4 01/16/23 09:10 4 01/16/23 09:00 4 01/16/23 08:50 10 01/16/23 08:40 10 01/16/23 05:41 Pain Intensity Right Hip: Pain Intensity: 5 Transfer of Care Handoff Completed per policy Notes Mental Status: alert / awake / arousable and participated in evaluation Patient Amnestic to Procedure: Yes Nausea / Vomiting: adequately controlled Pain: adequately controlled Airway Patency, RR, SpO2: stable & adequate BP & HR: stable & adequate Hydration State: stable & adequate Neuraxial Anesthesia: was administered and sensory block is resolving Anesthetic Complications: no major complications apparent and Pt Satisfied with anesthetic care
[2023-01-16] MEDS: ALLERGY Noted to ORDERED Medication SCH ×5 (10:22→10:26)
[2023-01-16] MEDS: SODIUM CHLORIDE 0.9% 1,000 ML IV SCH ×2 (10:33→20:57)
[2023-01-16] MEDS: DOCUSATE SODIUM 100 MG CAP PO SCH ×2 (11:12→22:05)
[2023-01-16] MEDS: MULTIVITAMIN TAB PO SCH (11:12)
[2023-01-16] MEDS: ESCITALOPRAM OXALATE 10 MG TAB PO SCH ×2 (11:49→11:51)
[2023-01-16] MEDS: ACETAMINOPHEN 500 MG TAB PO SCH ×2 (13:40→22:04)
[2023-01-16] MEDS: ceFAZolin 2000MG 2,000 MG/15 ML SYR IV SCH ×2 (14:55→22:05)
[2023-01-16] MEDS ORDERED: SENNA 8.6 MG TAB PO SCH (21:00)
[2023-01-17] MEDS: ACETAMINOPHEN 500 MG TAB PO SCH (05:01)
[2023-01-17] MEDS ORDERED: dexAMETHasone 4 MG TAB PO SCH (08:00)
[2023-01-17] MEDS ORDERED: APIXABAN 2.5 MG TAB PO SCH (08:00)
[2023-01-17] MEDS: ESCITALOPRAM OXALATE 10 MG TAB PO SCH (08:09)
[2023-01-17] MEDS: MULTIVITAMIN TAB PO SCH (08:09)
[2023-01-17] MEDS: DOCUSATE SODIUM 100 MG CAP PO SCH (08:09)
--- NOTE | 2023-01-17 08:17 | Orthopedic Progress Note ---
Date of Service January 17, 2023 Assessment & Plan (1) Status post right hip replacement: Overall she is doing very well. She is not having much pain in the right hip. She will be seen by physical therapy today for ambulation and range of motion exercises. She is on Eliquis for DVT prophylaxis. She can be discharged home later today. She will follow-up with orthopedics in 2 weeks. Subjective Gavi was seen and examined at bedside this morning. Overall she is doing very well. She is not having much pain in the right hip. She has been up and ambulating to the bathroom. She has no complaints.. Review of Systems All systems reviewed & are unremarkable except as noted in HPI & below. Physical Exam On physical examination of the right hip, the dressing is clean and dry. Her leg lengths are equal. She has active dorsiflexion plantarflexion of her right ankle.. Results & Data Results & Data Laboratory Results . Diagnostic Findings Postoperative x-rays of the right hip show the prosthesis to be in anatomic alignment without any evidence of fracture, desiccation, or loosening.. PG Care Time/CCT Total # of Minutes Spent Total Time Spent with Patient: Total time spent is greater than 50% in coordination of care (as documented) at patient's floor/unit and/or counseling patient: Coding Level of Care Code 62054 Post Operative Follow-Up Diagnoses Status post right hip replacement Z96.641
--- NOTE | 2023-01-17 08:18 | Discharge Summary ---
Date of Service January 17, 2023 Admission HPI (Per Admitting) Gavi is a pleasant 66-year-old female who has been dealing with chronic increasing right hip and groin pain. It really affects her quality of life on daily activities. She has had two injections from Dr. Lemons, which had given her significant relief with the wear off. The x-ray do show some mild arthritis. I send her for an MRI of her hip. MRI shows advanced osteoarthritis. After failing conservative treatment, she has elected proceed with a right anterior total of arthroplasty. Admission Exam (Per Admitting) On physical examination of right hip, she has pain with forced internal and external rotation. She has pain in her groin.. Principal Diagnosis Same as "Discharge Diagnosis" noted below under Discharge Instructions. Discharge Exam On physical examination of the right hip, the dressing is clean and dry. Her leg lengths are equal. She has active dorsiflexion plantarflexion of her right ankle.. Discharge Data Procedures Performed Operation Date: 01/16/23 07:00 Actual Procedures p Right Anterior Total Hip Arthroplasty(Right) - Gerard Sen DO Ordered Studies 01/16/23 [place] hip RT 1V Routine Hospital Course (1) Status post right hip replacement: On January 16, 2023 Gavi arrived at [facility] and underwent a right hip replaced without complication. She had a spinal anesthetic. Postoperatively she was started on Eliquis for DVT prophylaxis and transferred to the general orthopedic floors. Her hospital course was uneventful. On postop day #1, her vital signs were stable and her pain was well controlled. She was able to participate well with physical therapy doing ambulation and range of motion exercises. She was then discharged home. She will follow-up with orthopedics in 2 weeks. PG Care Time/CCT Total # of Minutes Spent Total Time Spent with Patient: Total time spent is greater than 50% in coordination of care (as documented) at patient's floor/unit and/or counseling patient: Discharge Plan Discharge Items Patient Disposition: Home - Home Health Services Reason For Visit: DJD Right Hip Discharge Diagnosis: Right hip replacement Activity: Per Instructions section Non-emergency contact: Surgeon Call non-emergency contact if: your wound has increased redness and your wound has increased drainage Follow-up/Referrals: Julia Connell CRNP [Primary Care Provider] - Diet: Regular Addtl Attending Provider Instructions: Activity and Therapy Recommendations: * If you are using [facility] then therapy will be provided at your home until they feel you have accomplished all of your goals. * If you are using [facility] then Physical Therapy will be provided until they feel you are ready to start Outpatient Physical Therapy. * If you are not using home therapy then Outpatient Physical Therapy should start about 3-5 days from your day of surgery. Therapy will last about 6-10 weeks * You were shown a series of exercises in the hospital. Do these exercises three times each day including the exercises you were shown in physical therapy. * Get up and walk several times each day.~ For the first four weeks, try not to stand or walk for more than one hour at a time. If you do stand or walk for more than one hour, you will not hurt anything, but your leg will likely swell.~~ * As you feel comfortable, you may change from the walker or crutches to a cane and~then to independent walking. Medications: * Narcotic You will likely be sent home from the hospital with a prescription for the narcotic pain medication that worked best throughout your stay. * Eliquis take Eliquis twice a day for 30 days to prevent blood clots. * Other medications may be prescribed for specific circumstances. If you have any questions, please call the office at . * Resume previous home medications unless otherwise instructed TEDs/Elastic Stockings: The white elastic stockings help limit swelling and prevent blood clots from forming in your legs. The more you wear them, the more they work. Wear them for six weeks. Dressing Care: Leave the Silverlon dressing in place for 7 days. After 7 days you may remove the dressing. If the incision is not draining then you may leave the narciso open to air. If there is a little bit of drainage or if the narciso are getting stuck on your clothing then cover the incision with a dry dressing. The narciso will be removed at your 2 week follow-up appointment. Showering: You may shower with the Silverlon dressing in place. Do not let the shower spray hit the dressing directly. Pat the Silverlon dressing dry. If the dressing becomes wet underneath, then simply remove the dressing. Keep the incision dry until you are 7 days out from the day of surgery. After 7 days you may remove the Silverlon dressing and shower with the narciso exposed. Let soapy water run over the narciso and pat them dry. Do not scrub or soak the incision. Things To Watch For: * Drainage from the incision site that occurs more than one week after your surgery. * Increased redness at the incision site. * Fever above 102 degrees Fahrenheit. * Unusual chest pain or shortness of breath. * Call [facility] at with any of the above problems Follow-Up Visit: Follow-up with Dr. Sen's PA (Gerard Kincaid) 2-3 weeks after your day of surgery. He will remove your narciso and answer any questions. If you have any additional questions or concerns, Dr Sen is usually in the office at the same time and will be available An appointment was probably scheduled when you signed-up for surgery in the office. If you have any questions call Office Instructions: More detailed instructions as well as Frequently Asked Questions were provided in a folder by our office when you signed-up for surgery. Please review these instructions when you get home. If you have any further questions or concerns, please feel free to call the office at [phone] Pending Studies at Discharge: No Stand-Alone Forms: [facility] [employer], Smoking Cessation Medications and DC Order Prescriptions: New oxycodone 5 mg Tablet 5 mg PO Q4H PRN (Reason: pain) Qty: 30 0RF Eliquis 2.5 mg Tablet 2.5 mg PO BID Qty: 60 0RF Continued multivitamin tablet 1 tab PO QAM cholecalciferol (vitamin D3) 2,000 unit capsule 2,000 units PO QAM Qty: 30 cyanocobalamin (vitamin B-12) 1,000 mcg/mL kit 1,000 mcg SQ MONTHLY cetirizine [Zyrtec] 10 mg tablet 10 mg PO HS PRN (Reason: Allergy Symptoms) Qty: 30 Ginkgo Biloba Plus [phone] mg Tablet 1 tab PO QAM escitalopram oxalate [Lexapro] 10 mg Tablet 10 mg PO QAM Probiotic 3 billion cell Capsule 3,000 mmu cells PO QAM Rx Instructions: administer with a meal pantoprazole [Protonix] 40 mg tablet,delayed release (DR/EC) 40 mg PO QAM Admission Data Admit Date/Time: 01/16/23 08:40 Attending Provider: Gerard Sen Admit Provider: Gerard Sen Primary Care Provider: Julia Connell
== END 2023-01-17 10:21 | disposition home health service (06) ==
LOC: 3W 05:08 → ASU 05:08